=== PATIENT | male | born 1925 | race Caucasian/White ===

== ENCOUNTER 2016-08-04 22:06 | Emergency (ER) | payer OTHER ==
[2016-08-04 22:23] VITALS: BP 152/90; PULSE 73; TEMP 98; BMI 23.5
[2016-08-04] MEDS ORDERED: LIDOCAINE HCL 1%, 10 MG/ML (50 mL VIAL) INF ONE (22:51)
--- NOTE | 2016-08-04 22:52 | PDOC ---
History of Present Illness - General Chief Complaint: Injury Stated Complaint: FELL/INJURY Time Seen by Provider: 08/04/16 22:24 History Source: Patient, Family Exam Limitations: Dementia - History of Present Illness Initial Comments: 08/04/16 22:54 89yo Male patient presented to ED via EMS from [facility]. Patient states while ambulating in [place] with walker, he tripped fell backward injuring left elbow and right hand. Patient and family denies head injury, neck injury or LOC. Patient c/o large laceration to right hand. Denies CP, Abd pain, n/v/d, fever, back pain, neck pain, head injury, diff breathing, or any other complaints at this time. Occurred: reports: just prior to arrival Pain Location: reports: upper extremity Method of Injury: Yes: fall Modifying Factors: worse with: None, cold therapy, immobilization, pain medication, rest, other Loss of Consciousness: no loss of consciousness Past History - Travel Traveled outside of the country in the last 30 days: No Close contact w/someone who was outside of country & ill: No - Past Medical History Allergies/Adverse Reactions: Allergies Allergy/AdvReac Type Severity Reaction Status Date / Time No Known Allergies Allergy Verified 08/04/16 22:22 Home Medications: Ambulatory Orders Sennosides [Senna -] 2 tab PO DAILY 10/25/14 Guaifenesin AC [Robitussin AC] 10 ml PO Q8H PRN #0 ud 10/28/14 Brimonidine Tartrate [Alphagan 0.2% -] 1 drop OU TID 02/28/16 Latanoprost 0.005% Eye Drops [Xalatan 0.005% Eye Drops -] 1 drop OU HS 02/28/16 Lipase/Protease/Amylase [Мария Chou 12,000 Units Capsule] 1 each PO ASDIR Mag Hydrox/Al Hydrox/Simeth [Mylanta *Suspension*] 20 ml PO Q6H PRN 02/28/16 Ranitidine HCl [Zantac] 150 mg PO HS 02/28/16 Simethicone [Gas-X] 80 mg PO Q4H PRN 02/28/16 Aa/[place]/Arg/C/Zn/Cu [Lps Critical Care Liquid] 30 ml PO DAILY Bacitracin - [Bacitracin Topical Ointment -] 1 applic TP DAILY 03/17/16 Clotrimazole [Lotrimin 1% Solution -] 1 applic TP BID 03/17/16 Dapsone [Aczone] 1 cm TP HS 03/17/16 Dorzolamide HCl [Trusopt 2%] 1 drop OU BID 03/17/16 Sulfacetamide Sodium [Ovace Plus] 1 applic TP BID 03/17/16 Cardiac Disorders: Yes Dementia: Yes GI Disorders: Yes (GERD) HTN: Yes Hypercholesterolemia: Yes Suicide Attempt (Hx): No - Immunization History Immunization Up to Date: Yes - Psycho/Social/Smoking Cessation Hx Anxiety: No Suicidal Ideation: No Smoking Status: No Smoking History: Never smoked Have you smoked in the past 12 months: No Number of Cigarettes Smoked Daily: 0 Hx Alcohol Use: No Drug/Substance Use Hx: No Substance Use Type: None Hx Substance Use Treatment: No Trauma Specific PMHX - Complaint Specific PMHX Arthritis: Yes Back Injury: No Neck Injury: No Hx Sacro Iliac Joint Dysfunction: No Review of Systems - Review of Systems Able to Perform ROS?: Yes Is the patient limited Belarusian proficient: No Constitutional: No: Fever Respiratory: No: Shortness of Breath, Stridor, Wheezing, Productive cough Cardiac (ROS): No: Chest Pain, Palpitations, Syncope, Chest Tightness ABD/GI: No: Constipated, Diarrhea, Nausea, Vomiting : No: Burning, Dysuria, Frequency, Flank Pain, Hematuria, Pain, Urgency Musculoskeletal: No: Back Pain, Joint Pain (Left elbow) Integumentary: Yes: Other (Laceration to right hand.). No: Erythema, Pruritus, Rash Neurological: No: Headache, Numbness, Seizure, Tingling, Tremors, Weakness, Unsteady Gait, Ataxia, Dizziness All Other Systems: Reviewed and Negative *Physical Exam - Vital Signs Last Vital Signs Temp Pulse Resp BP Pulse Ox 98 F 73 18 152/90 96 08/04/16 22:22 08/04/16 22:22 08/04/16 22:22 08/04/16 22:22 08/04/16 22:22 - Physical Exam General Appearance: Yes: Nourished, Appropriately Dressed. No: Apparent Distress, Mild Distress, Moderate Distress, Severe Distress HEENT: positive: EOMI, KELL, Normal ENT Inspection, Normal Voice, Symmetrical, TMs Normal, Pharynx Normal. negative: Nasal Congestion, Rhinorrhea, Sinus Tenderness, TM Bulging, TM Dull, TM Erythema Neck: positive: Trachea midline, Supple. negative: Decreased range of motion, Stridor, Lymphadenopathy (R), Lymphadenopathy (L), Rigidity, Tender lateral, Tender midline Respiratory/Chest: positive: Lungs Clear, Decreased Breath Sounds. negative: Normal Breath Sounds, Respiratory Distress, Accessory Muscle Use, Labored Respiration, Rapid RR, Rhonchi, Stridor, Wheezing Cardiovascular: positive: Regular Rhythm, Regular Rate. negative: Edema, JVD, Murmur Gastrointestinal/Abdominal: positive: Normal Bowel Sounds, Soft. negative: Distended, Guarding, Rebound, Tenderness Musculoskeletal: positive: Normal Inspection. negative: CVA Tenderness, Decreased Range of Motion Extremity: positive: Normal Capillary Refill, Normal Inspection, Normal Range of Motion. negative: Pedal Edema, Swelling Integumentary: positive: Normal Color, Dry, Warm, Other (4cm laceration to dorsal aspect of right hand.). negative: Jaundice, Mottled, Hives, Rash, Swelling Neurologic: positive: row boss II-XII NML intact, Fully Oriented, Alert, Normal Mood/ Affect, Normal Response, Motor Strength 5/5. negative: Numbness, Confused, Depressed Affect Procedures - Laceration/Wound Repair Right Upper Dorsal Hand Wound Length: 2.6 to 5.0 cm Wound Explored: clean Wound's Depth, Shape: into muscle, linear, flap Irrigated w/ Saline: Yes Betadine Prep: No Anesthesia: 1% Lidocaine Amount of Anesthetic (ccs): 7 Wound Debrided: minimal Wound Repaired With: Sutures Suture Size/Type: 5:0, other (CHROMIC GUT.) Number of Sutures: 10 Layer Closure: No Progress: 08/05/16 01:00 PATIENT TOLERATED PROCEDURE WELL. STERILE DRESSING APPLIED. ED Treatment Course - RADIOLOGY Radiology Studies Ordered: Category Date Time Status HAND- RIGHT [RAD] Stat Radiology 08/04/16 22:51 Ordered *DC/Admit/Observation/Transfer Diagnosis at time of Disposition: Laceration Injury of hand Qualifiers: Encounter type: initial encounter Laterality: right Qualified Code(s): S69.91XA - Unspecified injury of right wrist, hand and finger(s), initial encounter Fall Qualifiers: Encounter type: initial encounter Qualified Code(s): W19.XXXA - Unspecified fall, initial encounter - Discharge Dispostion Disposition: NURSING HOME FACILITY Condition at time of disposition: Stable Admit: No - Patient Instructions Printed Discharge Instructions: DI for Suture Removal, DI for Laceration Repair , DI for Hand Injury Additional Instructions: FOLLOW UP WITH YOUR DOCTOR. NO NEED FOR SUTURE REMOVAL THEY DISSOLVE. MOTRIN OR TYLENOL FOR PAIN NEEDED. KEEP HAND COVERED UNTIL HEALED. RETURN IF SYMPTOMS WORSEN, OR ANY CONCERNS FOR FURTHER EVALUATION. Print Language: ETHIOPIAN
[2016-08-04] MEDS ORDERED: LIDOCAINE HCL/PF 1% SDV 5ML VIAL ONE (23:23)
[2016-08-05 00:05] LABS: URINE APPEARANCE CLEAR; URINE BILIRUBIN NEGATIVE (NEGATIVE); URINE COLOR STRAW; URINE GLUCOSE (UA) NEGATIVE (NEGATIVE); URINE KETONE NEGATIVE (NEGATIVE); URINE LEUK ESTERASE NEGATIVE (NEGATIVE); URINE NITRITE NEGATIVE (NEGATIVE); URINE PROTEIN NEGATIVE (NEGATIVE); URINE UROBILINOGEN NEGATIVE E.U./dl (0.2-1.0)
[2016-08-05 00:08] LABS: URINE BLOOD 1+ (NEGATIVE)
[2016-08-05 00:10] LABS: URINE HYALINE CAST 1 /lpf; URINE RBC 1 /hpf (0-3); URINE WBC <1 /hpf (3-5)
[2016-08-05] MEDS ORDERED: ACETAMINOPHEN 325 MG TABLET (FP) PO ONE (01:08)
== END 2016-08-05 01:54 ==
LOC: JER 22:06
PROC: 0KQC3ZZ Repair Right Hand Muscle, Percutaneous Approach (ICD-10-PCS; principal; 2016-08-04)
DX: S61.411A Laceration without foreign body of right hand, initial encounter (principal); W01.0XXA Fall on same level from slipping, tripping and stumbling without subsequent striking against object, initial encounter; Y93.01 Activity, walking, marching and hiking; Y92.128 Other place in nursing home as the place of occurrence of the external cause; I10 Essential (primary) hypertension; E78.00 Pure hypercholesterolemia, unspecified; K21.9 Gastro-esophageal reflux disease without esophagitis; F03.90 Unspecified dementia, unspecified severity, without behavioral disturbance, psychotic disturbance, mood disturbance, and anxiety
CPT/HCPCS: 13132; 73130-TC-RT; 81003; 81015; 87086; 87186; 99281-25

== ENCOUNTER 2017-06-30 10:53 | Inpatient (IN) | payer OTHER ==
--- NOTE | 2017-06-30 11:07 | PDOC ---
Attending Attestation - Resident Resident Name: Marty Mcmillan - ED Attending Attestation I have performed the following: I have examined & evaluated the patient, The case was reviewed & discussed with the resident, I agree w/resident's findings & plan, Exceptions are as noted - Medical Decision Making 06/30/17 11:07 I, Dr. Katerina Bustos, DO, attest that this document has been prepared under my direction and personally reviewed by me in its entirety. I further attest, that it accurately reflects all work, treatment, procedures and medical decision -making performed by me. 06/30/17 12:31 a/p: 89yo male with fever/cough and fall x 2 -concern for closed head injury and poss PNA -will obtain labs, cultures, lactate, tylenol for fever -will most likely need admission and abx <Katerina Bustos - Last Filed: 06/30/17 12:31> - HPI HPI: 06/30/17 13:39 The patient is an 89 year old male with a significant PMH of dementia, HTN, and glaucoma who presents to the emergency department from [facility] via EMS s /p fall. As per EMS, the patient fell at the skilled nursing but are unsure if he fell from the bed or standing position. The skilled nursing notes that the patient also fell yesterday and was stabilized, but was found on the ground today. The patient is unable to provide a history secondary to his dementia. Allergies: NKA - Physicial Exam PE: 06/30/17 14:41 GENERAL: (+) Hot to touch. Awake, alert, and fully oriented, in no acute distress HEAD: No signs of trauma EYES: PERRLA, EOMI, sclera anicteric, conjunctiva clear ENT: Auricles normal inspection, hearing grossly normal, nares patent, oropharynx clear without exudates. Moist mucosa NECK: Normal ROM, supple, no lymphadenopathy, JVD, or masses LUNGS: (+) Coarse breath sounds bilaterally. No wheezes, and no crackles HEART: (+) Tachycardic. Regular rate and rhythm, normal S1 and S2, no murmurs, rubs or gallops ABDOMEN: Soft, nontender, normoactive bowel sounds. No guarding, no rebound. No masses EXTREMITIES: Normal range of motion, no edema. No clubbing or cyanosis. No cords, erythema, or tenderness NEUROLOGICAL: Cranial nerves II through XII grossly intact. Normal speech. SKIN: Warm, Dry, normal turgor, no rashes or lesions noted. - Medical Decision Making 06/30/17 15:[address] Vang for admission regarding this patient. <Tushar Musa - Last Filed: 06/30/17 15:53> Heart Score/ECG Review - ECG Intrepretation Comment:: 06/30/17 12:31 sinus tach at 106, L johns axis, nl interval, no acute st/t wave findings <Katerina Bustos - Last Filed: 06/30/17 12:31>
[2017-06-30] MEDS ORDERED: SODIUM CHLORIDE 0.9% 1000 ML INFUS.BAG IV ONE (11:22)
[2017-06-30] MEDS ORDERED: BACITRACIN 0.9 GM PACKET ONE (11:23)
--- NOTE | 2017-06-30 11:46 | PDOC ---
History of Present Illness - General Chief Complaint: Injury Stated Complaint: FALL Time Seen by Provider: 06/30/17 10:57 History Source: EMS, Family, [facility] Records Exam Limitations: Dementia - History of Present Illness Initial Comments: 06/30/17 11:40 The patient is an 89M with a PMH of demetia, glaucoma, and HTN who presents via EMS for falling from standing height/bed from [facility] (unsure at longterm). The patient cannot provide any history. Per the [place], he fell once yesterday and was stable, then was found on the ground today. They are unsure if he was walking or if he fell off the bed. He denies any complaints but I cannot perform a ROS 2/2 dementia. Past History - Past Medical History Allergies/Adverse Reactions: Allergies Allergy/AdvReac Type Severity Reaction Status Date / Time No Known Allergies Allergy Verified 06/30/17 11:44 Home Medications: Ambulatory Orders Aa/Hydrolyzed Collagen, Whey [Lps 15-30 Liquid] 30 ml PO DAILY 06/30/17 Acetaminophen [Tylenol] 650 mg PO QID 06/30/17 Bimatoprost [Lumigan] 1 drop OU DAILY 06/30/17 Brimonidine Tartrate [Alphagan 0.2% -] 1 drop TID 06/30/17 Cholecalciferol (Vitamin D3) [Vitamin D3] 1,000 unit PO DAILY 06/30/17 Dorzolamide HCl [Trusopt 2%] 1 drop TID 06/30/17 Guaifenesin [Expectorant] 200 mg PO BID 06/30/17 Lipase/Protease/Amylase [Мария Chou 12,000 Units Capsule] 2 tab PO TID 06/30/17 Mag Hydrox/Al Hydrox/Simeth [Mylanta *Suspension*] 30 ml PO Q6H 06/30/17 Metronidazole 1% Cream [Metrocream 1% Cream -] 1 applic TP BID 06/30/17 Mirtazapine [Remeron -] 15 mg PO DAILY 06/30/17 Ranitidine HCl [Zantac 75] 75 mg PO BID 06/30/17 Sennosides [Senna] 2 tab PO DAILY 06/30/17 Simethicone [Gas Relief 80] 80 mg PO QID 06/30/17 Timolol 0.5% [Timoptic 0.5%] 1 drop OU DAILY 06/30/17 Vit A/Vit C/Vit E/Zinc/Copper [Preservision Tablet] 1 each PO BID 06/30/17 Cardiac Disorders: Yes Dementia: Yes GI Disorders: Yes (GERD) HTN: Yes Hypercholesterolemia: Yes - Immunization History Immunization Up to Date: Yes - Suicide/Smoking/Psychosocial Hx Smoking Status: No Smoking History: Never smoked Have you smoked in the past 12 months: No Number of Cigarettes Smoked Daily: 0 Hx Alcohol Use: No Drug/Substance Use Hx: No Substance Use Type: None Hx Substance Use Treatment: No Review of Systems - Review of Systems Able to Perform ROS?: No (demented) Is the patient limited Montenegrin proficient: No *Physical Exam - Physical Exam Comments: 06/30/17 11:47 GENERAL: Well developed, well nourished. Awake and alert. No acute distress. HEENT: Normocephalic, atraumatic. Hearing grossly normal. PERRLA, EOMI. NECK: Supple. Full ROM. No JVD. Carotid pulses 2+ and symmetric, without bruits. No thyromegaly. No lymphadenopathy. CARDIOVASCULAR: Regular rate and rhythm. No murmurs, rubs, or gallops. Distal pulses are 2+ and symmetric. PULMONARY: Decreased lung sounds in R LL. No evidence of respiratory distress. No wheezing, rales or rhonchi. ABDOMINAL: Soft. Non-tender. Non-distended. No rebound or guarding. No organomegaly. Normoactive bowel sounds. MUSCULOSKELETAL: Normal range of motion at all joints. No bony deformities or tenderness. EXTREMITIES: No cyanosis. No clubbing. No edema. No calf tenderness. SKIN: Warm and dry. Normal capillary refill. No rashes. No jaundice. NEUROLOGICAL: Alert, awake, appropriate. Cranial nerves 2-12 intact. PSYCHIATRIC: Cooperative. Good eye contact. Demented. Heart Score/ECG Review #1 General ECG Interpretation: Sinus Rhythm, Normal Rate, Normal Intervals, No acute ischemic changes Compared to previous ECG there are: No significant change 06/30/17 11:52 Sinus tach Rate 106 QRS 80 QTc 438 ED Treatment Course - LABORATORY CBC & Chemistry Diagram: 06/30/17 11:35 06/30/17 11:35 - RADIOLOGY Radiology Studies Ordered: Category Date Time Status CERVICAL SPINE CT W/O CONTR [CT] Stat CT Scan 06/30/17 11:[address] WITHOUT CONTRAST [CT] Stat CT Scan 06/30/17 11:34 Ordered CHEST X-RAY PORTABLE* [RAD] Stat Radiology 06/30/17 11:22 Ordered ELBOW-LEFT [RAD] Stat Radiology 06/30/17 11:34 Ordered SHOULDER-LEFT [RAD] Stat Radiology 06/30/17 11:34 Ordered WRIST W/HAND-LEFT* [RAD] Stat Radiology 06/30/17 11:34 Ordered Medical Decision Making - Medical Decision Making 06/30/17 11:55 The patient is an 89M with a PMH of dementia, HTN, and glaucoma who presented to the ED after sustaining 2 falls in 2 days. He denies any complaints. He has 2 superficial skin tears, both cleaned and bandaged. Incoming vitals significant for 101.3F. Sepsis protocol is being followed. In addition, I will image his head and L arm for bleed/fracture, respectively. Will monitor closely. 06/30/17 14:55 Head and c-spine CT negative. 06/30/17 14:56 L arm negative. CXR read as negative. Will order Chest CT as there is high likelihood there is a PNA. 06/30/17 15:35 Will order prophylactic abx because of a fever with no source. 06/30/17 15:[address] I have spoken with Dr. Vang who accepts admission for Dr. Neff to a med- surg bed. *DC/Admit/Observation/Transfer Diagnosis at time of Disposition: Accidental fall Qualifiers: Encounter type: initial encounter Qualified Code(s): W19.XXXA - Unspecified fall, initial encounter - Discharge Dispostion Condition at time of disposition: Stable Admit: Yes - Referrals - Patient Instructions - Post Discharge Activity
[2017-06-30 11:51] LABS: BASO % 0.2 % (0-2.0); HEMATOCRIT 45.3 % (35.4-49); HEMOGLOBIN 14.8 GM/dL (11.7-16.9); LYMPH % 7.6 % (8-40); MCH 28.2 pg (25.7-33.7); MCHC 32.8 g/dl (32.0-35.9); MEAN PLT VOLUME 7.6 fl (7.5-11.1); MONO % 14.6 % (3.8-10.2); NEUT % 77.6 % (42.8-82.8); PLATELET COUNT 191 K/MM3 (134-434); RBC 5.27 M/mm3 (4.00-5.60); WHITE BLOOD COUNT 10.4 K/mm3 (4.0-10.0)
[2017-06-30] MEDS ORDERED: ACETAMINOPHEN 1000 MG/100 ML VIAL (NON FORMULARY) IVPB ONE (11:53)
[2017-06-30] MEDS ORDERED: ACETAMINOPHEN INJECTION 100 ML IVPB ONE (11:56)
[2017-06-30 12:00] LABS: URINE APPEARANCE CLEAR; URINE BILIRUBIN NEGATIVE (NEGATIVE); URINE BLOOD NEGATIVE (NEGATIVE); URINE COLOR YELLOW; URINE GLUCOSE (UA) NEGATIVE (NEGATIVE); URINE KETONE TRACE (NEGATIVE); URINE LEUK ESTERASE NEGATIVE (NEGATIVE); URINE NITRITE NEGATIVE (NEGATIVE); URINE UROBILINOGEN NEGATIVE mg/dL (0.2-1.0)
[2017-06-30 12:09] LABS: URINE PROTEIN 1+ (NEGATIVE)
[2017-06-30 12:10] LABS: URINE BACTERIA RARE /hpf (NONE SEEN); URINE MUCUS RARE
[2017-06-30 12:16] LABS: ALBUMIN 3.2 g/dl (3.4-5.0); ALK PHOS 74 U/L (45-117); ANION GAP 12 (8-16); BILIRUBIN,TOTAL 0.5 mg/dL (0.2-1.0); BLOOD UREA NITROGEN 11 mg/dL (7-18); CALCIUM 7.9 mg/dL (8.5-10.1); CHLORIDE 91 mmol/L (98-107); CO2 24 mmol/L (21-32); CREATININE 0.8 mg/dL (0.7-1.3); GLUCOSE,RANDOM 101 mg/dL (74-106); POTASSIUM 4.5 mmol/L (3.5-5.1); SGOT/AST 19 U/L (15-37); SGPT/ALT 18 U/L (12-78); SODIUM 127 mmol/L (136-145); TOT PROT 6.3 g/dl (6.4-8.2)
[2017-06-30 14:23] LABS: INR 1.09 (0.82-1.09); PROTHROMBIN TIME (PATIENT) 12.3 SEC (9.98-11.88)
[2017-06-30 14:26] LABS: ACTIVATED PTT 30.1 SECONDS (26.9-34.4)
[2017-06-30] MEDS ORDERED: VANCOMYCIN 1,000 MG in DEXTROSE 5%-WATER - 250 ML IVPB ONE (15:34)
[2017-06-30] MEDS ORDERED: PIPERACILLIN/TAZOB 3.375 GM/50 ML PRE-DOCKED IV ONE (15:34)
[2017-06-30] MEDS ORDERED: VANCOMYCIN 500 MG VIAL (RESTRICTED TO ID ONLY) ONE (16:51)
[2017-06-30] MEDS ORDERED: PIPERACILLIN/TAZOB 3.375 GM 3.375 GM/50 ML BAG IVPB ONE (16:51)
[2017-06-30] MEDS ORDERED: PATIENT'S OWN MEDICATION (NON-FORMULARY) (Aa/Hydrolyzed Collagen, Whey [Lps 15-30 Liquid] PO SCH (18:30)
[2017-06-30 18:32] VITALS: BMI 21.2
[2017-06-30] MEDS: PIPERACILLIN/TAZOB 3.375 GM 3.375 GM in DEXTROSE 5%-WATER - 50 ML IVPB SCH (18:46)
[2017-06-30] MEDS ORDERED: PIPERACILLIN/TAZOB 3.375 GM 3.375 GM in DEXTROSE 5%-WATER - 100 ML IVPB SCH (19:00)
[2017-06-30] MEDS: MIRTAZAPINE 15 MG TABLET (FP) PO SCH (20:13)
[2017-06-30] MEDS: CHOLECALCIFEROL (VITAMIN D3) 1,000 UNIT TABLET (FP) PO SCH (20:13)
[2017-06-30] MEDS: SENNOSIDES 8.6MG TABLET (FP) PO SCH (20:14)
[2017-06-30] MEDS: TIMOLOL 0.5% OPHTHALMIC SOL 5 ML BOTTLE OU SCH (20:21)
[2017-06-30] MEDS: LATANOPROST 0.005% OPHTH SOLN 2.5ML BOTTLE OU SCH (20:30)
[2017-06-30] MEDS: RANITIDINE HCL 150 MG TABLET (FP) PO SCH (21:33)
[2017-06-30] MEDS: DORZOLAMIDE 2% HCL OPHTHALMIC SOLUTION 10 ML BOTTLE OU SCH (21:34)
[2017-06-30] MEDS: BRIMONIDINE TARTRATE 0.2% OPHTHALMIC 5 ML BOTTLE OU SCH (21:39)
[2017-06-30] MEDS: ACETAMINOPHEN 325 MG TABLET (FP) PO SCH (21:40)
[2017-06-30] MEDS: SIMETHICONE 80 MG TAB.CHEW (FP) PO SCH (21:41)
[2017-06-30] MEDS ORDERED: metroNIDAZOLE 1% TOPICAL CREAM 60 GM/TUBE TP SCH ×2 (22:00)
[2017-06-30] MEDS ORDERED: PT OWN MED DRAWER 7, Y5N ONE (23:58)
[2017-07-01] MEDS ORDERED: PT OWN MED DRAWER 7, Y5N ONE ×2 (00:03→21:30)
[2017-07-01] MEDS ORDERED: PIPERACILLIN/TAZOB 3.375 GM 3.375 GM in DEXTROSE 5%-WATER - 100 ML IVPB SCH (02:00)
[2017-07-01] MEDS: BRIMONIDINE TARTRATE 0.2% OPHTHALMIC 5 ML BOTTLE OU SCH ×3 (06:27→21:40)
[2017-07-01] MEDS: DORZOLAMIDE 2% HCL OPHTHALMIC SOLUTION 10 ML BOTTLE OU SCH ×3 (06:27→21:39)
[2017-07-01] MEDS: LIPASE/PROTEASE/AMYLASE 6,000 UNIT CAPSULE PO SCH ×3 (10:26→17:27)
[2017-07-01] MEDS: SIMETHICONE 80 MG TAB.CHEW (FP) PO SCH ×4 (10:26→21:38)
[2017-07-01] MEDS: TIMOLOL 0.5% OPHTHALMIC SOL 5 ML BOTTLE OU SCH (10:27)
[2017-07-01] MEDS: SENNOSIDES 8.6MG TABLET (FP) PO SCH (10:27)
[2017-07-01] MEDS: MIRTAZAPINE 15 MG TABLET (FP) PO SCH (10:27)
[2017-07-01] MEDS: RANITIDINE HCL 150 MG TABLET (FP) PO SCH ×2 (10:28→21:34)
[2017-07-01] MEDS: ACETAMINOPHEN 325 MG TABLET (FP) PO SCH ×4 (10:28→21:37)
[2017-07-01] MEDS: CHOLECALCIFEROL (VITAMIN D3) 1,000 UNIT TABLET (FP) PO SCH (10:28)
[2017-07-01] MEDS: LATANOPROST 0.005% OPHTH SOLN 2.5ML BOTTLE OU SCH (10:29)
--- NOTE | 2017-07-01 14:08 | PN ---
Progress Note (short form) - Note Progress Note: Continues to have cough and chest congestion No fever O/E Heart regular Lungs VB, b/l rales and rhonchi+ Abd soft ' Ext no edema Laboratory Results - last 24 hr 06/30/17 06/30/17 11:35 11:35 PT with INR 12.30 H INR 1.09 PTT (Actin FS) 30.1 Ur Leukocyte Esterase Negative Current Medications Acetaminophen (Tylenol -) 650 mg PO QID [facility] Last Admin: 07/01/17 10:28 Dose: 650 mg Brimonidine Tartrate (Alphagan 0.2% -) 1 drop OU TID MELISSA Last Admin: 07/01/17 06:27 Dose: 1 drop Cholecalciferol (Vitamin D3 -) 1,000 unit PO DAILY [facility] Last Admin: 07/01/17 10:28 Dose: 1,000 unit Dorzolamide HCl (Trusopt 2%) 1 drop OU TID [facility] Last Admin: 07/01/17 06:27 Dose: 1 drop Piperacillin Sod/Tazobactam (Sod 3.375 gm/ Dextrose) 50 mls @ 100 mls/hr IVPB Q8H-IV MELISSA PRN Reason: Protocol Last Admin: 06/30/17 18:46 Dose: Not Given Latanoprost (Xalatan 0.005% Eye Drops -) 1 drop OU DAILY [facility] Last Admin: 07/01/17 10:29 Dose: 1 drop Metronidazole (Metrocream 1% Cream -) 60 gm TP BID [facility] Mirtazapine (Remeron -) 15 mg PO DAILY [facility] Last Admin: 07/01/17 10:27 Dose: 15 mg Non-Formulary Medication (Guaifenesin [Expectorant]) 200 mg PO BID [facility] Non-Formulary Medication (Vit A/Vit C/Vit E/Zinc/Copper [Preservision Areds Tablet]) 1 each PO BID [facility] Pancrelipase (Creon Dr 6,000 Units Capsule) 4 cap PO TIDCM [facility] Last Admin: 07/01/17 10:26 Dose: 4 cap Ranitidine HCl (Zantac -) 75 mg PO BID [facility] Last Admin: 07/01/17 10:28 Dose: 75 mg Senna (Senna -) 2 tab PO DAILY [facility] Last Admin: 07/01/17 10:27 Dose: 2 tab Simethicone (Mylicon -) 80 mg PO QID [facility] Last Admin: 07/01/17 10:26 Dose: 80 mg Timolol Maleate (Timoptic 0.5%) 1 drop OU DAILY [facility] Last Admin: 07/01/17 10:27 Dose: 1 drop Vital Signs Period Temp Pulse Resp BP Sys/Weber Pulse Ox Last 24 Hr 98.4 F-99 F 83-96 18-20 119-145/60-74 94-96 A&P 1.Pneumonia Cont present ABX for NH acquired, add yoli PT 2.HTN controlled 3.Dementia stable
[2017-07-01] MEDS: PIPERACILLIN/TAZOB 3.375 GM 3.375 GM in DEXTROSE 5%-WATER - 100 ML IVPB SCH (18:41)
[2017-07-01] MEDS: guaiFENesin 200 MG/10 ML 10 ML UNIT-DOSE CUPS PO SCH (21:46)
[2017-07-02] MEDS: PIPERACILLIN/TAZOB 3.375 GM 3.375 GM in DEXTROSE 5%-WATER - 100 ML IVPB SCH (01:26)
[2017-07-02] MEDS ORDERED: PT OWN MED DRAWER 7, Y5N ONE ×2 (05:58→07:01)
[2017-07-02] MEDS: DORZOLAMIDE 2% HCL OPHTHALMIC SOLUTION 10 ML BOTTLE OU SCH ×3 (06:03→22:19)
[2017-07-02] MEDS: BRIMONIDINE TARTRATE 0.2% OPHTHALMIC 5 ML BOTTLE OU SCH ×3 (06:04→22:17)
[2017-07-02] MEDS: LIPASE/PROTEASE/AMYLASE 6,000 UNIT CAPSULE PO SCH ×3 (08:38→17:19)
[2017-07-02] MEDS: ACETAMINOPHEN 325 MG TABLET (FP) PO SCH ×4 (10:35→22:16)
[2017-07-02] MEDS: CHOLECALCIFEROL (VITAMIN D3) 1,000 UNIT TABLET (FP) PO SCH (10:36)
[2017-07-02] MEDS: SIMETHICONE 80 MG TAB.CHEW (FP) PO SCH ×4 (10:36→22:16)
[2017-07-02] MEDS: MIRTAZAPINE 15 MG TABLET (FP) PO SCH (10:36)
[2017-07-02] MEDS: RANITIDINE HCL 150 MG TABLET (FP) PO SCH ×2 (10:36→22:19)
[2017-07-02] MEDS: guaiFENesin 200 MG/10 ML 10 ML UNIT-DOSE CUPS PO SCH ×2 (10:39→22:16)
[2017-07-02] MEDS: TIMOLOL 0.5% OPHTHALMIC SOL 5 ML BOTTLE OU SCH (10:47)
[2017-07-02] MEDS: LATANOPROST 0.005% OPHTH SOLN 2.5ML BOTTLE OU SCH (10:47)
[2017-07-02] MEDS ORDERED: PIPERACILLIN/TAZOB 3.375 GM 3.375 GM in DEXTROSE 5%-WATER - 100 ML IVPB ONE (11:30)
[2017-07-02] MEDS: SENNOSIDES 8.6MG TABLET (FP) PO SCH (12:28)
--- NOTE | 2017-07-02 15:26 | EKG ---
Test Reason : Blood Pressure : / mmHG Vent. Rate : 106 BPM Atrial Rate : 106 BPM P-R Int : 172 ms QRS Dur : 080 ms QT Int : 330 ms P-R-T Axes : 074 -70 066 degrees QTc Int : 438 ms SINUS TACHYCARDIA WITH PREMATURE ATRIAL COMPLEXES LEFT AXIS DEVIATION ABNORMAL ECG WHEN COMPARED WITH ECG OF 09-APR-2016 00:48, COMPARED TO EKG NO SIGNIFICANT CHANGE IS FOUND Confirmed by DONAL ALEXANDER MD ([id number]) on 07/02/2017 3:25:50 PM Referred By: Confirmed By:DONAL ALEXANDER MD
--- NOTE | 2017-07-02 17:17 | PN ---
Progress Note (short form) - Note Progress Note: Continues to feel better No fever Stll has cough and chest congestion O/E Herat regular Lungs VB, b/l scattered rales+ Abd soft Ext no edema Vital Signs Period Temp Pulse Resp BP Sys/Weber Pulse Ox Last 24 Hr 97.7 F-101.6 F 88-115 18-20 112-147/48-82 95-97 Current Medications Acetaminophen (Tylenol -) 650 mg PO QID [facility] Last Admin: 07/02/17 13:57 Dose: 650 mg Brimonidine Tartrate (Alphagan 0.2% -) 1 drop OU TID [facility] Last Admin: 07/02/17 13:58 Dose: 1 drop Cholecalciferol (Vitamin D3 -) 1,000 unit PO DAILY [facility] Last Admin: 07/02/17 10:36 Dose: 1,000 unit Dorzolamide HCl (Trusopt 2%) 1 drop OU TID [facility] Last Admin: 07/02/17 13:58 Dose: 1 drop Guaifenesin (Robitussin -) 10 ml PO BID [facility] Last Admin: 07/02/17 10:39 Dose: 10 ml Piperacillin Sod/Tazobactam (Sod 3.375 gm/ Dextrose) 50 mls @ 100 mls/hr IVPB Q8H-IV [facility]ELISSA PRN Reason: Protocol Last Admin: 06/30/17 18:46 Dose: Not Given Latanoprost (Xalatan 0.005% Eye Drops -) 1 drop OU DAILY [facility] Last Admin: 07/02/17 10:47 Dose: 1 drop Metronidazole (Metrocream 1% Cream -) 60 gm TP BID [facility] Mirtazapine (Remeron -) 15 mg PO DAILY [facility] Last Admin: 07/02/17 10:36 Dose: 15 mg Non-Formulary Medication (Vit A/Vit C/Vit E/Zinc/Copper [Preservision Areds Tablet]) 1 each PO BID [facility] Pancrelipase (Creon Dr 6,000 Units Capsule) 4 cap PO TIDCM [facility] Last Admin: 07/02/17 12:15 Dose: 4 cap Ranitidine HCl (Zantac -) 75 mg PO BID [facility] Last Admin: 07/02/17 10:36 Dose: 75 mg Senna (Senna -) 2 tab PO DAILY [facility] Last Admin: 07/02/17 12:28 Dose: 2 tab Simethicone (Mylicon -) 80 mg PO QID [facility] Last Admin: 07/02/17 13:58 Dose: Not Given Timolol Maleate (Timoptic 0.5%) 1 drop OU DAILY [facility] Last Admin: 07/02/17 10:47 Dose: 1 drop A&P 1.Pneumonia Cont present ABX for NH acquired, The patient is doing a lot better and more awake today Blood cultures are negative and will change Abx to levaquin from tomorrow. 2.HTN controlled 3.Dementia stable
[2017-07-03] MEDS ORDERED: PT OWN MED DRAWER 7, Y5N ONE ×3 (02:09→21:39)
[2017-07-03] MEDS: BRIMONIDINE TARTRATE 0.2% OPHTHALMIC 5 ML BOTTLE OU SCH ×2 (06:20→22:14)
[2017-07-03] MEDS: DORZOLAMIDE 2% HCL OPHTHALMIC SOLUTION 10 ML BOTTLE OU SCH ×3 (06:20→22:13)
[2017-07-03] MEDS: LIPASE/PROTEASE/AMYLASE 6,000 UNIT CAPSULE PO SCH ×3 (10:28→17:32)
[2017-07-03] MEDS: ACETAMINOPHEN 325 MG TABLET (FP) PO SCH ×3 (10:29→22:10)
[2017-07-03] MEDS: RANITIDINE HCL 150 MG TABLET (FP) PO SCH ×2 (10:29→22:13)
[2017-07-03] MEDS: MIRTAZAPINE 15 MG TABLET (FP) PO SCH (10:30)
[2017-07-03] MEDS: SENNOSIDES 8.6MG TABLET (FP) PO SCH (10:30)
[2017-07-03] MEDS: SIMETHICONE 80 MG TAB.CHEW (FP) PO SCH ×3 (10:30→22:12)
[2017-07-03] MEDS: TIMOLOL 0.5% OPHTHALMIC SOL 5 ML BOTTLE OU SCH (10:31)
[2017-07-03] MEDS: CHOLECALCIFEROL (VITAMIN D3) 1,000 UNIT TABLET (FP) PO SCH (10:31)
[2017-07-03] MEDS: LATANOPROST 0.005% OPHTH SOLN 2.5ML BOTTLE OU SCH (10:32)
[2017-07-03] MEDS: guaiFENesin 200 MG/10 ML 10 ML UNIT-DOSE CUPS PO SCH ×2 (11:05→22:12)
[2017-07-03] MEDS ORDERED: PIPERACIL/TAZOB 3.375 GM 3.375 GM/50 ML PREMIX IVPB ONE (11:39)
[2017-07-03 12:17] LABS: BASO % 0.2 % (0-2.0); HEMATOCRIT 39.3 % (35.4-49); HEMOGLOBIN 12.8 GM/dL (11.7-16.9); LYMPH % 7.1 % (8-40); MCH 27.9 pg (25.7-33.7); MCHC 32.5 g/dl (32.0-35.9); MEAN CELL VOLUME 85.6 fl (80-96); MEAN PLT VOLUME 7.6 fl (7.5-11.1); NEUT % 81.7 % (42.8-82.8); PLATELET COUNT 165 K/MM3 (134-434); RBC 4.59 M/mm3 (4.00-5.60); RDW 14.2 % (11.9-15.9); WHITE BLOOD COUNT 4.3 K/mm3 (4.0-10.0)
[2017-07-03 12:42] LABS: ANION GAP 12 (8-16); BLOOD UREA NITROGEN 11 mg/dL (7-18); CALCIUM 7.7 mg/dL (8.5-10.1); CHLORIDE 99 mmol/L (98-107); CO2 22 mmol/L (21-32); CREATININE 0.6 mg/dL (0.7-1.3); GLUCOSE,RANDOM 106 mg/dL (74-106); MAGNESIUM 2.1 mg/dL (1.8-2.4); PHOSPHOROUS 2.2 mg/dL (2.5-4.9); POTASSIUM 3.5 mmol/L (3.5-5.1); SODIUM 133 mmol/L (136-145)
--- NOTE | 2017-07-03 13:15 | PN ---
Progress Note, Physician Chief Complaint: Mr Alba says he is feeling well. Denies cp, sob, n/v. He has a cough but says it is minor and he is able to sleep. - Current Medication List Current Medications: Active Medications Acetaminophen (Tylenol -) 650 mg PO QID [facility] Last Admin: 07/03/17 10:29 Dose: 650 mg Brimonidine Tartrate (Alphagan 0.2% -) 1 drop OU TID [facility] Last Admin: 07/03/17 06:20 Dose: 1 drop Cholecalciferol (Vitamin D3 -) 1,000 unit PO DAILY [facility] Last Admin: 07/03/17 10:31 Dose: 1,000 unit Dorzolamide HCl (Trusopt 2%) 1 drop OU TID [facility] Last Admin: 07/03/17 06:20 Dose: 1 drop Guaifenesin (Robitussin -) 10 ml PO BID [facility] Last Admin: 07/03/17 11:05 Dose: 10 ml Piperacillin Sod/Tazobactam (Sod 3.375 gm/ Dextrose) 50 mls @ 100 mls/hr IVPB Q8H-IV [facility] PRN Reason: Protocol Last Admin: 06/30/17 18:46 Dose: Not Given Latanoprost (Xalatan 0.005% Eye Drops -) 1 drop OU DAILY [facility] Last Admin: 07/03/17 10:32 Dose: 1 drop Metronidazole (Metrocream 1% Cream -) 60 gm TP BID [facility] Mirtazapine (Remeron -) 15 mg PO DAILY [facility] Last Admin: 07/03/17 10:30 Dose: 15 mg Non-Formulary Medication (Vit A/Vit C/Vit E/Zinc/Copper [Preservision Areds Tablet]) 1 each PO BID [facility] Pancrelipase (Creon Dr 6,000 Units Capsule) 4 cap PO TIDCM [facility] Last Admin: 07/03/17 10:28 Dose: 4 cap Piperacillin/Tazobactam/Dextrose (Zosyn 3.375gm Ivpb (Premix)) 3.375 gm IVPB ONCE ONE Stop: 07/03/17 11:40 Ranitidine HCl (Zantac -) 75 mg PO BID [facility] Last Admin: 07/03/17 10:29 Dose: 75 mg Senna (Senna -) 2 tab PO DAILY [facility] Last Admin: 07/03/17 10:30 Dose: 2 tab Simethicone (Mylicon -) 80 mg PO QID [facility] Last Admin: 07/03/17 10:30 Dose: 80 mg Timolol Maleate (Timoptic 0.5%) 1 drop OU DAILY [facility] Last Admin: 07/03/17 10:31 Dose: 1 drop - Objective Vital Signs: Vital Signs Temperature 36.8 C 07/03/17 06:00 Pulse Rate 95 H 07/03/17 06:00 Respiratory Rate 20 07/02/17 22:43 Blood Pressure 137/76 07/03/17 06:00 O2 Sat by Pulse Oximetry (%) 96 07/02/17 21:00 Constitutional: Yes: Well Nourished, No Distress, Calm Cardiovascular: Yes: Regular Rate and Rhythm. No: Gallop, Murmur, Rub Respiratory: Yes: Regular, Cough (wet sounding), On Nasal O2, Rhonchi. No: CTA Bilaterally, Rales, Wheezes Gastrointestinal: Yes: Normal Bowel Sounds, Soft. No: Distention, Tenderness Extremities: Yes: WNL Edema: No Labs: CBC, BMP 07/03/17 12:00 07/03/17 12:00 INR, PTT INR 1.09 (0.82-1.09) 06/30/17 11:35 Problem List - Problems (1) Pneumonia Assessment/Plan: -patient found to have multifocal pneumonia on CT scan -patient received zosyn over hospitalization but appears not consistently -will order dose of zosyn now -ID consulted to evaluate for HCAP and further need of broad spectrum antibiotics -afebrile and normal WBC Code(s): J18.9 - PNEUMONIA, UNSPECIFIED ORGANISM (2) Accidental fall Assessment/Plan: -PT consulted and note reviewed -continue PT while here, discharge back to [facility] when on oral antibiotics Code(s): W19.XXXA - UNSPECIFIED FALL, INITIAL ENCOUNTER Qualifiers: Encounter type: initial encounter Qualified Code(s): W19.XXXA - Unspecified fall, initial encounter (3) Dementia Assessment/Plan: -stable Code(s): F03.90 - UNSPECIFIED DEMENTIA WITHOUT BEHAVIORAL DISTURBANCE (4) Glaucoma Assessment/Plan: -continue eye drops Code(s): H40.9 - UNSPECIFIED GLAUCOMA (5) Hypertension Assessment/Plan: -not on antihypertensives -SBP in the 150s, but at his age and with fall risk does not need aggressive blood pressure therapy -continue to monitor Code(s): I10 - ESSENTIAL (PRIMARY) HYPERTENSION Qualifiers: Hypertension type: essential hypertension Qualified Code(s): I10 - Essential (primary) hypertension (6) Hypophosphatemia Assessment/Plan: -replace -recheck in am Code(s): E83.39 - OTHER DISORDERS OF PHOSPHORUS METABOLISM
[2017-07-03] MEDS ORDERED: PIPERACILLIN/TAZOB 3.375 GM 3.375 GM in DEXTROSE 5%-WATER - 100 ML IVPB ONE (14:00)
--- NOTE | 2017-07-03 14:42 | CON.ID ---
Consult Consult Specialty:: infectious diseases Referred by:: Reason for Consultation:: pneumonia - History of Present Illness Chief Complaint: fall History of Present Illness: 89M with a PMH of demetia, glaucoma, and HTN who presents via EMS for falling from standing height/bed from [facility] . The patient cannot provide any history. Per the [place], he fell and then was found on the ground . They are unsure if he was walking or if he fell off the bed. patients daughter mentions that she has not seen him sick patient after admission was found to have pneumonia and was given few doses of abx according to the daughter patient was developing cough in the senior living he also had fever patient has severe dementia - History Source History Provided By: Family Member Limitations to Obtaining History: Dementia - Past Medical History PEN MAKER: Yes: Alzheimer's Cardio/Vascular: Yes: HTN, Hyperlipdemia Pulmonary: Yes: Other (non descript bronchitic condition.) Infectious Disease: Yes: Other (URI) Rheumatology: Yes: Other (gait dysf) - Past Surgical History Past Surgical History: Yes: None - Alcohol/Substance Use Hx Alcohol Use: No History of Substance Use: reports: None - Smoking History Smoking history: Never smoked Have you smoked in the past 12 months: No Aproximately how many cigarettes per day: 0 - Social History 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 History of Recent Travel: No Home Medications - Allergies Allergies/Adverse Reactions: Allergies Allergy/AdvReac Type Severity Reaction Status Date / Time No Known Allergies Allergy Verified 06/30/17 11:44 - Home Medications Home Medications: Ambulatory Orders Aa/Hydrolyzed Collagen, Whey [Lps 15-30 Liquid] 30 ml PO DAILY 06/30/17 Acetaminophen [Tylenol] 650 mg PO QID 06/30/17 Bimatoprost [Lumigan] 1 drop OU DAILY 06/30/17 Brimonidine Tartrate [Alphagan 0.2% -] 1 drop TID 06/30/17 Cholecalciferol (Vitamin D3) [Vitamin D3] 1,000 unit PO DAILY 06/30/17 Dorzolamide HCl [Trusopt 2%] 1 drop TID 06/30/17 Guaifenesin [Expectorant] 200 mg PO BID 06/30/17 Lipase/Protease/Amylase [Мария Chou 12,000 Units Capsule] 2 tab PO TID 06/30/17 Mag Hydrox/Al Hydrox/Simeth [Mylanta *Suspension*] 30 ml PO Q6H 06/30/17 Metronidazole 1% Cream [Metrocream 1% Cream -] 1 applic TP BID 06/30/17 Mirtazapine [Remeron -] 15 mg PO DAILY 06/30/17 Ranitidine HCl [Zantac 75] 75 mg PO BID 06/30/17 Sennosides [Senna] 2 tab PO DAILY 06/30/17 Simethicone [Gas Relief 80] 80 mg PO QID 06/30/17 Timolol 0.5% [Timoptic 0.5%] 1 drop OU DAILY 06/30/17 Vit A/Vit C/Vit E/Zinc/Copper [Preservision Tablet] 1 each PO BID 06/30/17 Review of Systems Unable to obtain ROS, reason: unable to obtain Physical Exam Vital Signs: Vital Signs Temperature 98.2 F 07/03/17 06:00 Pulse Rate 95 H 07/03/17 06:00 Respiratory Rate 20 07/02/17 22:43 Blood Pressure 137/76 07/03/17 06:00 O2 Sat by Pulse Oximetry (%) 96 07/02/17 21:00 Constitutional: Yes: Calm Eyes: Yes: Conjunctiva Clear Neck: Yes: Supple, Trachea Midline Cardiovascular: Yes: Regular Rate and Rhythm Respiratory: Yes: On Venti-Mask, Poor Air Entry (rt side), Rhonchi Gastrointestinal: Yes: Normal Bowel Sounds, Soft Musculoskeletal: Yes: WNL Extremities: Yes: WNL Neurological: Yes: Alert, Other (dementia) Psychiatric: Yes: Other Labs: CBC, BMP 07/03/17 12:00 07/03/17 12:00 Imaging - Results Chest X-ray: Report Reviewed, Image Reviewed Cat Scan: Report Reviewed, Image Reviewed Assessment/Plan this patient with multiple medical problems admitted because of h/o of fall and found to ahve bilateral pneumonia i am going to treat it as hospital acquired pna patient with multiple medical problems Problem List - Problems (1) Pneumonia Code(s): J18.9 - PNEUMONIA, UNSPECIFIED ORGANISM (2) Accidental fall Code(s): W19.XXXA - UNSPECIFIED FALL, INITIAL ENCOUNTER Qualifiers: Encounter type: initial encounter Qualified Code(s): W19.XXXA - Unspecified fall, initial encounter (3) Dementia Code(s): F03.90 - UNSPECIFIED DEMENTIA WITHOUT BEHAVIORAL DISTURBANCE (4) Glaucoma Code(s): H40.9 - UNSPECIFIED GLAUCOMA (5) Hypertension Code(s): I10 - ESSENTIAL (PRIMARY) HYPERTENSION Qualifiers: Hypertension type: essential hypertension Qualified Code(s): I10 - Essential (primary) hypertension (6) Hypophosphatemia Code(s): E83.39 - OTHER DISORDERS OF PHOSPHORUS METABOLISM plan will start patient on zosyn will also add vanco rest as per surgery d/w the family
[2017-07-03] MEDS ORDERED: PIPERACILLIN/TAZOB 3.375 GM 50 ML IVPB SCH (14:45)
[2017-07-03] MEDS: NAPH,MB-DB/K PH,MBDB POWDER PACKET PO SCH ×2 (15:57→22:13)
[2017-07-03] MEDS: VANCOMYCIN 1,250 MG in DEXTROSE 5%-WATER - 250 ML IVPB SCH (17:23)
[2017-07-03] MEDS: PIPERACILLIN/TAZOB 3.375 GM 3.375 GM in DEXTROSE 5%-WATER - 100 ML IVPB SCH (17:36)
[2017-07-04] MEDS: PIPERACILLIN/TAZOB 3.375 GM 3.375 GM in DEXTROSE 5%-WATER - 100 ML IVPB SCH ×3 (01:18→17:25)
[2017-07-04] MEDS: DORZOLAMIDE 2% HCL OPHTHALMIC SOLUTION 10 ML BOTTLE OU SCH ×3 (05:45→21:45)
[2017-07-04] MEDS: BRIMONIDINE TARTRATE 0.2% OPHTHALMIC 5 ML BOTTLE OU SCH ×3 (05:45→21:44)
[2017-07-04 08:56] LABS: BASO % 0.3 % (0-2.0); EOS % 0.1 % (0-4.5); HEMATOCRIT 40.5 % (35.4-49); HEMOGLOBIN 13.2 GM/dL (11.7-16.9); MCH 27.9 pg (25.7-33.7); MCHC 32.5 g/dl (32.0-35.9); MEAN CELL VOLUME 85.8 fl (80-96); MEAN PLT VOLUME 7.9 fl (7.5-11.1); MONO % 13.9 % (3.8-10.2); NEUT % 70.7 % (42.8-82.8); PLATELET COUNT 191 K/MM3 (134-434); RBC 4.72 M/mm3 (4.00-5.60); RDW 14.5 % (11.9-15.9); WHITE BLOOD COUNT 4.3 K/mm3 (4.0-10.0)
[2017-07-04 09:32] LABS: CHLORIDE 100 mmol/L (98-107); POTASSIUM 3.4 mmol/L (3.5-5.1); SODIUM 133 mmol/L (136-145)
[2017-07-04] MEDS ORDERED: PT OWN MED DRAWER 7, Y5N ONE ×6 (09:45→21:40)
[2017-07-04] MEDS: guaiFENesin 200 MG/10 ML 10 ML UNIT-DOSE CUPS PO SCH ×2 (09:49→21:43)
[2017-07-04] MEDS: LIPASE/PROTEASE/AMYLASE 6,000 UNIT CAPSULE PO SCH ×3 (09:50→18:43)
[2017-07-04] MEDS: SIMETHICONE 80 MG TAB.CHEW (FP) PO SCH ×4 (09:50→21:44)
[2017-07-04] MEDS: ACETAMINOPHEN 325 MG TABLET (FP) PO SCH ×4 (09:51→21:43)
[2017-07-04] MEDS: SENNOSIDES 8.6MG TABLET (FP) PO SCH (09:51)
[2017-07-04] MEDS: RANITIDINE HCL 150 MG TABLET (FP) PO SCH ×2 (09:51→21:43)
[2017-07-04] MEDS: CHOLECALCIFEROL (VITAMIN D3) 1,000 UNIT TABLET (FP) PO SCH (09:51)
[2017-07-04] MEDS: MIRTAZAPINE 15 MG TABLET (FP) PO SCH (09:51)
[2017-07-04] MEDS: LATANOPROST 0.005% OPHTH SOLN 2.5ML BOTTLE OU SCH (09:52)
[2017-07-04] MEDS: TIMOLOL 0.5% OPHTHALMIC SOL 5 ML BOTTLE OU SCH (09:52)
[2017-07-04] MEDS: NAPH,MB-DB/K PH,MBDB POWDER PACKET PO SCH (09:52)
[2017-07-04 09:58] LABS: ANION GAP 11 (8-16); BLOOD UREA NITROGEN 11 mg/dL (7-18); CALCIUM 7.2 mg/dL (8.5-10.1); CO2 22 mmol/L (21-32); CREATININE 0.6 mg/dL (0.7-1.3); GLUCOSE,RANDOM 90 mg/dL (74-106); MAGNESIUM 2.1 mg/dL (1.8-2.4)
--- NOTE | 2017-07-04 11:45 | PN ---
Progress Note, Physician Chief Complaint: Mr Alba says he is feeling well. Denies cp, sob, n/v. Says his cough is better. - Current Medication List Current Medications: Active Medications Acetaminophen (Tylenol -) 650 mg PO QID [facility] Last Admin: 07/04/17 09:51 Dose: 650 mg Brimonidine Tartrate (Alphagan 0.2% -) 1 drop OU TID [facility] Last Admin: 07/04/17 05:45 Dose: 1 drop Cholecalciferol (Vitamin D3 -) 1,000 unit PO DAILY [facility] Last Admin: 07/04/17 09:51 Dose: 1,000 unit Dorzolamide HCl (Trusopt 2%) 1 drop OU TID [facility] Last Admin: 07/04/17 05:45 Dose: 1 drop Guaifenesin (Robitussin -) 10 ml PO BID [facility] Last Admin: 07/04/17 09:49 Dose: 10 ml Vancomycin HCl 1,250 mg/ (Dextrose) 250 mls @ 125 mls/hr IVPB DAILY@1600 [facility] PRN Reason: Protocol Last Admin: 07/03/17 17:23 Dose: 125 mls/hr Piperacillin Sod/Tazobactam (Sod 3.375 gm/ Dextrose) 100 mls @ 200 mls/hr IVPB Q8H-IV [facility] Last Admin: 07/04/17 10:12 Dose: 200 mls/hr Latanoprost (Xalatan 0.005% Eye Drops -) 1 drop OU DAILY [facility] Last Admin: 07/04/17 09:52 Dose: 1 drop Mirtazapine (Remeron -) 15 mg PO DAILY [facility] Last Admin: 07/04/17 09:51 Dose: 15 mg Non-Formulary Medication (Vit A/Vit C/Vit E/Zinc/Copper [Preservision Areds Tablet]) 1 each PO BID [facility] Pancrelipase (Creon Dr 6,000 Units Capsule) 4 cap PO TIDCM [facility] Last Admin: 07/04/17 09:50 Dose: 4 cap Potassium Phos/Sodium Phos (Phos-Nak Packet -) 1 packet PO BID [facility] Last Admin: 07/04/17 09:52 Dose: 1 packet Ranitidine HCl (Zantac -) 75 mg PO BID [facility] Last Admin: 07/04/17 09:51 Dose: 75 mg Senna (Senna -) 2 tab PO DAILY [facility] Last Admin: 07/04/17 09:51 Dose: 2 tab Simethicone (Mylicon -) 80 mg PO QID [facility] Last Admin: 07/04/17 09:50 Dose: 80 mg Timolol Maleate (Timoptic 0.5%) 1 drop OU DAILY [facility] Last Admin: 07/04/17 09:52 Dose: 1 drop - Objective Vital Signs: Vital Signs Temperature 37.6 C 07/04/17 08:33 Pulse Rate 88 07/04/17 08:33 Respiratory Rate 20 07/04/17 08:36 Blood Pressure 153/95 07/04/17 08:33 O2 Sat by Pulse Oximetry (%) 94 L 07/04/17 08:36 Constitutional: Yes: Well Nourished, No Distress, Calm Cardiovascular: Yes: Regular Rate and Rhythm. No: Gallop, Murmur, Rub Respiratory: Yes: Regular, On Nasal O2, Rhonchi (slight). No: CTA Bilaterally, Rales, Wheezes Gastrointestinal: Yes: Normal Bowel Sounds, Soft, Distention. No: Tenderness Extremities: Yes: WNL Edema: No Labs: CBC, BMP 07/04/17 07:45 07/04/17 07:45 INR, PTT INR 1.09 (0.82-1.09) 06/30/17 11:35 Problem List - Problems (1) Pneumonia Code(s): J18.9 - PNEUMONIA, UNSPECIFIED ORGANISM (2) Accidental fall Code(s): W19.XXXA - UNSPECIFIED FALL, INITIAL ENCOUNTER Qualifiers: Encounter type: initial encounter Qualified Code(s): W19.XXXA - Unspecified fall, initial encounter (3) Dementia Code(s): F03.90 - UNSPECIFIED DEMENTIA WITHOUT BEHAVIORAL DISTURBANCE (4) Glaucoma Code(s): H40.9 - UNSPECIFIED GLAUCOMA (5) Hypertension Code(s): I10 - ESSENTIAL (PRIMARY) HYPERTENSION Qualifiers: Hypertension type: essential hypertension Qualified Code(s): I10 - Essential (primary) hypertension (6) Hypophosphatemia Code(s): E83.39 - OTHER DISORDERS OF PHOSPHORUS METABOLISM Assessment/Plan (1) Pneumonia Assessment/Plan: -multifocal pneumonia -appreciate ID assistance -treating for HCAP -now on zosyn and vancomycin -sepsis present on admission, now resolved Code(s): J18.9 - PNEUMONIA, UNSPECIFIED ORGANISM (2) Accidental fall Assessment/Plan: -PT consulted and note reviewed -continue PT while here, discharge back to [facility] when on oral antibiotics Code(s): W19.XXXA - UNSPECIFIED FALL, INITIAL ENCOUNTER Qualifiers: Encounter type: initial encounter Qualified Code(s): W19.XXXA - Unspecified fall, initial encounter (3) Dementia Assessment/Plan: -stable Code(s): F03.90 - UNSPECIFIED DEMENTIA WITHOUT BEHAVIORAL DISTURBANCE (4) Glaucoma Assessment/Plan: -continue eye drops Code(s): H40.9 - UNSPECIFIED GLAUCOMA (5) Hypertension Assessment/Plan: -not on antihypertensives -SBP in the 130-150s, but at his age and with fall risk does not need aggressive blood pressure therapy -continue to monitor Code(s): I10 - ESSENTIAL (PRIMARY) HYPERTENSION Qualifiers: Hypertension type: essential hypertension Qualified Code(s): I10 - Essential (primary) hypertension (6) Hypophosphatemia Assessment/Plan: -replaced Code(s): E83.39 - OTHER DISORDERS OF PHOSPHORUS METABOLISM
--- NOTE | 2017-07-04 16:25 | PN ---
Progress Note, Physician History of Present Illness: patient looking much better family in the room more awake and alert no complaints - Current Medication List Current Medications: Active Medications Acetaminophen (Tylenol -) 650 mg PO QID [facility] Last Admin: 07/04/17 14:54 Dose: Not Given Brimonidine Tartrate (Alphagan 0.2% -) 1 drop OU TID [facility] Last Admin: 07/04/17 13:51 Dose: 1 drop Cholecalciferol (Vitamin D3 -) 1,000 unit PO DAILY [facility] Last Admin: 07/04/17 09:51 Dose: 1,000 unit Dorzolamide HCl (Trusopt 2%) 1 drop OU TID [facility] Last Admin: 07/04/17 13:51 Dose: 1 drop Guaifenesin (Robitussin -) 10 ml PO BID [facility] Last Admin: 07/04/17 09:49 Dose: 10 ml Vancomycin HCl 1,250 mg/ (Dextrose) 250 mls @ 125 mls/hr IVPB DAILY@1600 [facility] PRN Reason: Protocol Last Admin: 07/03/17 17:23 Dose: 125 mls/hr Piperacillin Sod/Tazobactam (Sod 3.375 gm/ Dextrose) 100 mls @ 200 mls/hr IVPB Q8H-IV [facility] Last Admin: 07/04/17 10:12 Dose: 200 mls/hr Latanoprost (Xalatan 0.005% Eye Drops -) 1 drop OU DAILY [facility] Last Admin: 07/04/17 09:52 Dose: 1 drop Mirtazapine (Remeron -) 15 mg PO DAILY [facility] Last Admin: 07/04/17 09:51 Dose: 15 mg Non-Formulary Medication (Vit A/Vit C/Vit E/Zinc/Copper [Preservision Areds Tablet]) 1 each PO BID [facility] Pancrelipase (Creon Dr 6,000 Units Capsule) 4 cap PO TIDCM [facility] Last Admin: 07/04/17 13:50 Dose: 4 cap Ranitidine HCl (Zantac -) 75 mg PO BID [facility] Last Admin: 07/04/17 09:51 Dose: 75 mg Senna (Senna -) 2 tab PO DAILY [facility] Last Admin: 07/04/17 09:51 Dose: 2 tab Simethicone (Mylicon -) 80 mg PO QID [facility] Last Admin: 07/04/17 13:50 Dose: 80 mg Timolol Maleate (Timoptic 0.5%) 1 drop OU DAILY [facility] Last Admin: 07/04/17 09:52 Dose: 1 drop - Objective Vital Signs: Vital Signs Temperature 98.7 F 07/04/17 14:14 Pulse Rate 91 H 07/04/17 14:14 Respiratory Rate 18 07/04/17 14:14 Blood Pressure 145/75 07/04/17 14:14 O2 Sat by Pulse Oximetry (%) 94 L 07/04/17 08:36 Constitutional: Yes: No Distress, Calm Cardiovascular: Yes: Regular Rate and Rhythm Respiratory: Yes: Poor Air Entry, Other (improving) Gastrointestinal: Yes: Normal Bowel Sounds, Soft Musculoskeletal: Yes: WNL Extremities: Yes: WNL Neurological: Yes: Alert, Oriented Psychiatric: Yes: Alert, Oriented Labs: CBC, BMP 07/04/17 07:45 07/04/17 07:45 INR, PTT INR 1.09 (0.82-1.09) 06/30/17 11:35 Assessment/Plan Problem List - Problems (1) Pneumonia Code(s): J18.9 - PNEUMONIA, UNSPECIFIED ORGANISM (2) Accidental fall Code(s): W19.XXXA - UNSPECIFIED FALL, INITIAL ENCOUNTER Qualifiers: Encounter type: initial encounter Qualified Code(s): W19.XXXA - Unspecified fall, initial encounter (3) Dementia Code(s): F03.90 - UNSPECIFIED DEMENTIA WITHOUT BEHAVIORAL DISTURBANCE (4) Glaucoma Code(s): H40.9 - UNSPECIFIED GLAUCOMA (5) Hypertension Code(s): I10 - ESSENTIAL (PRIMARY) HYPERTENSION Qualifiers: Hypertension type: essential hypertension Qualified Code(s): I10 - Essential (primary) hypertension (6) Hypophosphatemia Code(s): E83.39 - OTHER DISORDERS OF PHOSPHORUS METABOLISM plan continue abx out of bed physio rest as per primary team
[2017-07-04] MEDS: VANCOMYCIN 1,250 MG in DEXTROSE 5%-WATER - 250 ML IVPB SCH (17:12)
[2017-07-05] MEDS: PIPERACILLIN/TAZOB 3.375 GM 3.375 GM in DEXTROSE 5%-WATER - 100 ML IVPB SCH ×3 (01:12→17:13)
[2017-07-05] MEDS ORDERED: PT OWN MED DRAWER 7, Y5N ONE ×3 (02:42→21:40)
[2017-07-05] MEDS: BRIMONIDINE TARTRATE 0.2% OPHTHALMIC 5 ML BOTTLE OU SCH ×4 (06:23→21:48)
[2017-07-05] MEDS: DORZOLAMIDE 2% HCL OPHTHALMIC SOLUTION 10 ML BOTTLE OU SCH ×3 (06:23→21:47)
[2017-07-05 08:31] LABS: BASO % 0.2 % (0-2.0); EOS % 0.4 % (0-4.5); HEMATOCRIT 42.5 % (35.4-49); HEMOGLOBIN 13.9 GM/dL (11.7-16.9); LYMPH % 10.3 % (8-40); MCH 27.8 pg (25.7-33.7); MCHC 32.8 g/dl (32.0-35.9); MEAN CELL VOLUME 84.8 fl (80-96); MEAN PLT VOLUME 7.2 fl (7.5-11.1); MONO % 13.2 % (3.8-10.2); NEUT % 75.9 % (42.8-82.8); PLATELET COUNT 217 K/MM3 (134-434); RBC 5.02 M/mm3 (4.00-5.60); RDW 14.7 % (11.9-15.9); WHITE BLOOD COUNT 6.2 K/mm3 (4.0-10.0)
[2017-07-05 08:56] LABS: ANION GAP 11 (8-16); BLOOD UREA NITROGEN 10 mg/dL (7-18); CALCIUM 7.6 mg/dL (8.5-10.1); CHLORIDE 99 mmol/L (98-107); CO2 23 mmol/L (21-32); CREATININE 0.6 mg/dL (0.7-1.3); GLUCOSE,RANDOM 100 mg/dL (74-106); MAGNESIUM 2.1 mg/dL (1.8-2.4); PHOSPHOROUS 2.5 mg/dL (2.5-4.9); POTASSIUM 3.4 mmol/L (3.5-5.1); SODIUM 133 mmol/L (136-145)
[2017-07-05] MEDS: RANITIDINE HCL 150 MG TABLET (FP) PO SCH ×2 (09:16→21:47)
[2017-07-05] MEDS: LIPASE/PROTEASE/AMYLASE 6,000 UNIT CAPSULE PO SCH ×3 (09:17→17:13)
[2017-07-05] MEDS: CHOLECALCIFEROL (VITAMIN D3) 1,000 UNIT TABLET (FP) PO SCH (09:18)
[2017-07-05] MEDS: MIRTAZAPINE 15 MG TABLET (FP) PO SCH (09:18)
[2017-07-05] MEDS: SIMETHICONE 80 MG TAB.CHEW (FP) PO SCH ×4 (09:18→21:47)
[2017-07-05] MEDS: SENNOSIDES 8.6MG TABLET (FP) PO SCH (09:18)
[2017-07-05] MEDS: ACETAMINOPHEN 325 MG TABLET (FP) PO SCH ×4 (09:18→21:47)
[2017-07-05] MEDS: guaiFENesin 200 MG/10 ML 10 ML UNIT-DOSE CUPS PO SCH ×2 (09:19→21:48)
[2017-07-05] MEDS: TIMOLOL 0.5% OPHTHALMIC SOL 5 ML BOTTLE OU SCH (09:19)
[2017-07-05] MEDS: LATANOPROST 0.005% OPHTH SOLN 2.5ML BOTTLE OU SCH (09:19)
[2017-07-05] MEDS ORDERED: POTASSIUM CHLORIDE TABS 20 MEQ TABLET.ER (FP) PO ONE (11:11)
--- NOTE | 2017-07-05 11:45 | PN ---
Progress Note, Physician Chief Complaint: Mr Alba says he is feeling well. Says he is not coughing much. Denies cp, sob , n/v. - Current Medication List Current Medications: Active Medications Acetaminophen (Tylenol -) 650 mg PO QID [facility] Last Admin: 07/05/17 09:18 Dose: 650 mg Brimonidine Tartrate (Alphagan 0.2% -) 1 drop OU TID [facility] Last Admin: 07/05/17 06:23 Dose: 1 drop Cholecalciferol (Vitamin D3 -) 1,000 unit PO DAILY [facility] Last Admin: 07/05/17 09:18 Dose: 1,000 unit Dorzolamide HCl (Trusopt 2%) 1 drop OU TID [facility] Last Admin: 07/05/17 06:23 Dose: 1 drop Guaifenesin (Robitussin -) 10 ml PO BID [facility] Last Admin: 07/05/17 09:19 Dose: 10 ml Vancomycin HCl 1,250 mg/ (Dextrose) 250 mls @ 125 mls/hr IVPB DAILY@1600 [facility] PRN Reason: Protocol Last Admin: 07/04/17 17:12 Dose: 125 mls/hr Piperacillin Sod/Tazobactam (Sod 3.375 gm/ Dextrose) 100 mls @ 200 mls/hr IVPB Q8H-IV [facility] Last Admin: 07/05/17 09:20 Dose: 200 mls/hr Latanoprost (Xalatan 0.005% Eye Drops -) 1 drop OU DAILY [facility] Last Admin: 07/05/17 09:19 Dose: 1 drop Mirtazapine (Remeron -) 15 mg PO DAILY [facility] Last Admin: 07/05/17 09:18 Dose: 15 mg Non-Formulary Medication (Vit A/Vit C/Vit E/Zinc/Copper [Preservision Areds Tablet]) 1 each PO BID [facility] Pancrelipase (Creon Dr 6,000 Units Capsule) 4 cap PO TIDCM [facility] Last Admin: 07/05/17 09:17 Dose: 4 cap Potassium Chloride (K-Dur -) 40 meq PO ONCE ONE Stop: 07/05/17 11:12 Ranitidine HCl (Zantac -) 75 mg PO BID [facility] Last Admin: 07/05/17 09:16 Dose: 75 mg Senna (Senna -) 2 tab PO DAILY [facility] Last Admin: 07/05/17 09:18 Dose: 2 tab Simethicone (Mylicon -) 80 mg PO QID [facility] Last Admin: 07/05/17 09:18 Dose: 80 mg Timolol Maleate (Timoptic 0.5%) 1 drop OU DAILY [facility] Last Admin: 07/05/17 09:19 Dose: 1 drop - Objective Vital Signs: Vital Signs Temperature 36.9 C 07/05/17 09:08 Pulse Rate 98 H 07/05/17 09:08 Respiratory Rate 19 07/05/17 09:08 Blood Pressure 146/74 07/05/17 09:08 O2 Sat by Pulse Oximetry (%) 95 07/04/17 21:00 Constitutional: Yes: Well Nourished, No Distress, Calm Cardiovascular: Yes: Regular Rate and Rhythm, Other (distant). No: Gallop, Murmur, Rub Respiratory: Yes: Regular, On Nasal O2, Rhonchi. No: Rales, Wheezes Gastrointestinal: Yes: Normal Bowel Sounds, Soft, Distention. No: Tenderness Extremities: Yes: WNL Edema: No Labs: CBC, BMP 07/05/17 08:05 07/05/17 08:05 INR, PTT INR 1.09 (0.82-1.09) 06/30/17 11:35 Problem List - Problems (1) Pneumonia Code(s): J18.9 - PNEUMONIA, UNSPECIFIED ORGANISM (2) Accidental fall Code(s): W19.XXXA - UNSPECIFIED FALL, INITIAL ENCOUNTER Qualifiers: Encounter type: initial encounter Qualified Code(s): W19.XXXA - Unspecified fall, initial encounter (3) Dementia Code(s): F03.90 - UNSPECIFIED DEMENTIA WITHOUT BEHAVIORAL DISTURBANCE (4) Glaucoma Code(s): H40.9 - UNSPECIFIED GLAUCOMA (5) Hypertension Code(s): I10 - ESSENTIAL (PRIMARY) HYPERTENSION Qualifiers: Hypertension type: essential hypertension Qualified Code(s): I10 - Essential (primary) hypertension (6) Hypophosphatemia Code(s): E83.39 - OTHER DISORDERS OF PHOSPHORUS METABOLISM Assessment/Plan (1) Pneumonia Assessment/Plan: -multifocal pneumonia -appreciate ID assistance -treating for HCAP -continue zosyn and vancomycin per ID -sepsis present on admission, now resolved Code(s): J18.9 - PNEUMONIA, UNSPECIFIED ORGANISM (2) Accidental fall Assessment/Plan: -PT consulted and note reviewed -continue PT while here, discharge back to [facility] when on oral antibiotics Code(s): W19.XXXA - UNSPECIFIED FALL, INITIAL ENCOUNTER Qualifiers: Encounter type: initial encounter Qualified Code(s): W19.XXXA - Unspecified fall, initial encounter (3) Dementia Assessment/Plan: -stable Code(s): F03.90 - UNSPECIFIED DEMENTIA WITHOUT BEHAVIORAL DISTURBANCE (4) Glaucoma Assessment/Plan: -continue eye drops Code(s): H40.9 - UNSPECIFIED GLAUCOMA (5) Hypertension Assessment/Plan: -monitor, does not need antihypertensives at this time Code(s): I10 - ESSENTIAL (PRIMARY) HYPERTENSION Qualifiers: Hypertension type: essential hypertension Qualified Code(s): I10 - Essential (primary) hypertension (6) Hypophosphatemia Assessment/Plan: -replaced Code(s): E83.39 - OTHER DISORDERS OF PHOSPHORUS METABOLISM
[2017-07-05] MEDS: VANCOMYCIN 1,250 MG in DEXTROSE 5%-WATER - 250 ML IVPB SCH (15:14)
--- NOTE | 2017-07-05 19:00 | PN ---
Progress Note, Physician History of Present Illness: stable no new events - Current Medication List Current Medications: Active Medications Acetaminophen (Tylenol -) 650 mg PO QID [facility] Last Admin: 07/05/17 17:16 Dose: 650 mg Brimonidine Tartrate (Alphagan 0.2% -) 1 drop OU TID [facility] Last Admin: 07/05/17 15:13 Dose: 1 drop Cholecalciferol (Vitamin D3 -) 1,000 unit PO DAILY [facility] Last Admin: 07/05/17 09:18 Dose: 1,000 unit Dorzolamide HCl (Trusopt 2%) 1 drop OU TID [facility] Last Admin: 07/05/17 15:13 Dose: 1 drop Guaifenesin (Robitussin -) 10 ml PO BID [facility] Last Admin: 07/05/17 09:19 Dose: 10 ml Vancomycin HCl 1,250 mg/ (Dextrose) 250 mls @ 125 mls/hr IVPB DAILY@1600 [facility] PRN Reason: Protocol Last Admin: 07/05/17 15:14 Dose: 125 mls/hr Piperacillin Sod/Tazobactam (Sod 3.375 gm/ Dextrose) 100 mls @ 200 mls/hr IVPB Q8H-IV [facility] Last Admin: 07/05/17 17:13 Dose: 200 mls/hr Latanoprost (Xalatan 0.005% Eye Drops -) 1 drop OU DAILY [facility] Last Admin: 07/05/17 09:19 Dose: 1 drop Mirtazapine (Remeron -) 15 mg PO DAILY [facility] Last Admin: 07/05/17 09:18 Dose: 15 mg Pancrelipase (Creon Dr 6,000 Units Capsule) 4 cap PO TIDCM [facility] Last Admin: 07/05/17 17:13 Dose: 4 cap Ranitidine HCl (Zantac -) 75 mg PO BID [facility] Last Admin: 07/05/17 09:16 Dose: 75 mg Senna (Senna -) 2 tab PO DAILY [facility] Last Admin: 07/05/17 09:18 Dose: 2 tab Simethicone (Mylicon -) 80 mg PO QID [facility] Last Admin: 07/05/17 17:16 Dose: 80 mg Timolol Maleate (Timoptic 0.5%) 1 drop OU DAILY [facility] Last Admin: 07/05/17 09:19 Dose: 1 drop - Objective Vital Signs: Vital Signs Temperature 97.4 F L 07/05/17 15:00 Pulse Rate 86 07/05/17 15:00 Respiratory Rate 20 07/05/17 15:00 Blood Pressure 138/87 07/05/17 15:00 O2 Sat by Pulse Oximetry (%) 95 07/05/17 09:08 Constitutional: Yes: No Distress, Calm Cardiovascular: Yes: S1, S2 Respiratory: Yes: On Nasal O2, Rhonchi Gastrointestinal: Yes: Normal Bowel Sounds, Soft Musculoskeletal: Yes: WNL Extremities: Yes: WNL Neurological: Yes: Alert Psychiatric: Yes: Alert Labs: CBC, BMP 07/05/17 08:05 07/05/17 08:05 INR, PTT INR 1.09 (0.82-1.09) 06/30/17 11:35 Assessment/Plan Problem List - Problems (1) Pneumonia Code(s): J18.9 - PNEUMONIA, UNSPECIFIED ORGANISM (2) Accidental fall Code(s): W19.XXXA - UNSPECIFIED FALL, INITIAL ENCOUNTER Qualifiers: Encounter type: initial encounter Qualified Code(s): W19.XXXA - Unspecified fall, initial encounter (3) Dementia Code(s): F03.90 - UNSPECIFIED DEMENTIA WITHOUT BEHAVIORAL DISTURBANCE (4) Glaucoma Code(s): H40.9 - UNSPECIFIED GLAUCOMA (5) Hypertension Code(s): I10 - ESSENTIAL (PRIMARY) HYPERTENSION Qualifiers: Hypertension type: essential hypertension Qualified Code(s): I10 - Essential (primary) hypertension (6) Hypophosphatemia Code(s): E83.39 - OTHER DISORDERS OF PHOSPHORUS METABOLISM plan continue abx out of bed physio rest as per primary team
[2017-07-06] MEDS: PIPERACILLIN/TAZOB 3.375 GM 3.375 GM in DEXTROSE 5%-WATER - 100 ML IVPB SCH ×3 (01:06→18:16)
[2017-07-06] MEDS: DORZOLAMIDE 2% HCL OPHTHALMIC SOLUTION 10 ML BOTTLE OU SCH ×3 (05:38→21:43)
[2017-07-06] MEDS: BRIMONIDINE TARTRATE 0.2% OPHTHALMIC 5 ML BOTTLE OU SCH ×3 (05:38→21:43)
[2017-07-06 06:11] LABS: BASO % 0.3 % (0-2.0); HEMOGLOBIN 12.8 GM/dL (11.7-16.9); LYMPH % 14.2 % (8-40); MCH 28.6 pg (25.7-33.7); MCHC 33.7 g/dl (32.0-35.9); MEAN PLT VOLUME 7.7 fl (7.5-11.1); MONO % 15.9 % (3.8-10.2); NEUT % 68.6 % (42.8-82.8); PLATELET COUNT 250 K/MM3 (134-434); RBC 4.47 M/mm3 (4.00-5.60); RDW 14.7 % (11.9-15.9); WHITE BLOOD COUNT 5.9 K/mm3 (4.0-10.0)
[2017-07-06 06:45] LABS: ANION GAP 11 (8-16); BLOOD UREA NITROGEN 8 mg/dL (7-18); CALCIUM 7.8 mg/dL (8.5-10.1); CHLORIDE 101 mmol/L (98-107); CO2 24 mmol/L (21-32); CREATININE 0.6 mg/dL (0.7-1.3); GLUCOSE,RANDOM 95 mg/dL (74-106); PHOSPHOROUS 2.7 mg/dL (2.5-4.9); POTASSIUM 3.5 mmol/L (3.5-5.1); SODIUM 136 mmol/L (136-145)
[2017-07-06] MEDS: ACETAMINOPHEN 325 MG TABLET (FP) PO SCH ×5 (10:00→21:43)
[2017-07-06] MEDS ORDERED: PT OWN MED DRAWER 7, Y5N ONE ×4 (10:13→21:33)
[2017-07-06] MEDS: guaiFENesin 200 MG/10 ML 10 ML UNIT-DOSE CUPS PO SCH ×2 (10:22→21:43)
[2017-07-06] MEDS: MIRTAZAPINE 15 MG TABLET (FP) PO SCH (10:23)
[2017-07-06] MEDS: RANITIDINE HCL 150 MG TABLET (FP) PO SCH ×2 (10:23→21:42)
[2017-07-06] MEDS: LIPASE/PROTEASE/AMYLASE 6,000 UNIT CAPSULE PO SCH ×3 (10:24→18:16)
[2017-07-06] MEDS: SENNOSIDES 8.6MG TABLET (FP) PO SCH (10:24)
[2017-07-06] MEDS: SIMETHICONE 80 MG TAB.CHEW (FP) PO SCH ×4 (10:24→21:42)
[2017-07-06] MEDS: CHOLECALCIFEROL (VITAMIN D3) 1,000 UNIT TABLET (FP) PO SCH (10:24)
[2017-07-06] MEDS: TIMOLOL 0.5% OPHTHALMIC SOL 5 ML BOTTLE OU SCH (10:25)
[2017-07-06] MEDS: LATANOPROST 0.005% OPHTH SOLN 2.5ML BOTTLE OU SCH (10:26)
--- NOTE | 2017-07-06 12:31 | PN ---
Progress Note, Physician History of Present Illness: stable comfortable sitting in chair - Current Medication List Current Medications: Active Medications Acetaminophen (Tylenol -) 650 mg PO QID [facility] Last Admin: 07/06/17 10:22 Dose: 650 mg Brimonidine Tartrate (Alphagan 0.2% -) 1 drop OU TID [facility] Last Admin: 07/06/17 05:38 Dose: 1 drop Cholecalciferol (Vitamin D3 -) 1,000 unit PO DAILY [facility] Last Admin: 07/06/17 10:24 Dose: 1,000 unit Dorzolamide HCl (Trusopt 2%) 1 drop OU TID [facility] Last Admin: 07/06/17 05:38 Dose: 1 drop Guaifenesin (Robitussin -) 10 ml PO BID [facility] Last Admin: 07/06/17 10:22 Dose: 10 ml Vancomycin HCl 1,250 mg/ (Dextrose) 250 mls @ 125 mls/hr IVPB DAILY@1600 [facility] PRN Reason: Protocol Last Admin: 07/05/17 15:14 Dose: 125 mls/hr Piperacillin Sod/Tazobactam (Sod 3.375 gm/ Dextrose) 100 mls @ 200 mls/hr IVPB Q8H-IV [facility] Last Admin: 07/06/17 10:26 Dose: 200 mls/hr Latanoprost (Xalatan 0.005% Eye Drops -) 1 drop OU DAILY [facility] Last Admin: 07/06/17 10:26 Dose: 1 drop Mirtazapine (Remeron -) 15 mg PO DAILY [facility] Last Admin: 07/06/17 10:23 Dose: 15 mg Pancrelipase (Creon Dr 6,000 Units Capsule) 4 cap PO TIDCM [facility] Last Admin: 07/06/17 10:24 Dose: 4 cap Ranitidine HCl (Zantac -) 75 mg PO BID [facility] Last Admin: 07/06/17 10:23 Dose: 75 mg Senna (Senna -) 2 tab PO DAILY [facility] Last Admin: 07/06/17 10:24 Dose: 2 tab Simethicone (Mylicon -) 80 mg PO QID [facility] Last Admin: 07/06/17 10:24 Dose: 80 mg Timolol Maleate (Timoptic 0.5%) 1 drop OU DAILY [facility] Last Admin: 07/06/17 10:25 Dose: 1 drop - Objective Vital Signs: Vital Signs Temperature 98.0 F 07/06/17 06:37 Pulse Rate 93 H 07/06/17 06:37 Respiratory Rate 20 07/06/17 06:37 Blood Pressure 126/78 07/06/17 06:37 O2 Sat by Pulse Oximetry (%) 96 07/05/17 21:00 Constitutional: Yes: No Distress, Calm Cardiovascular: Yes: S1, S2 Respiratory: Yes: WNL, On Nasal O2, Poor Air Entry (bases) Gastrointestinal: Yes: Normal Bowel Sounds, Soft Musculoskeletal: Yes: WNL Extremities: Yes: WNL Neurological: Yes: Alert Psychiatric: Yes: Alert, Other Labs: CBC, BMP 07/06/17 05:40 07/06/17 05:40 INR, PTT INR 1.09 (0.82-1.09) 06/30/17 11:35 Assessment/Plan Problem List - Problems (1) Pneumonia Code(s): J18.9 - PNEUMONIA, UNSPECIFIED ORGANISM (2) Accidental fall Code(s): W19.XXXA - UNSPECIFIED FALL, INITIAL ENCOUNTER Qualifiers: Encounter type: initial encounter Qualified Code(s): W19.XXXA - Unspecified fall, initial encounter (3) Dementia Code(s): F03.90 - UNSPECIFIED DEMENTIA WITHOUT BEHAVIORAL DISTURBANCE (4) Glaucoma Code(s): H40.9 - UNSPECIFIED GLAUCOMA (5) Hypertension Code(s): I10 - ESSENTIAL (PRIMARY) HYPERTENSION Qualifiers: Hypertension type: essential hypertension Qualified Code(s): I10 - Essential (primary) hypertension (6) Hypophosphatemia Code(s): E83.39 - OTHER DISORDERS OF PHOSPHORUS METABOLISM plan continue abx out of bed physio rest as per primary team will check vanc trough tomorrow
--- NOTE | 2017-07-06 12:39 | PN ---
Progress Note, Physician Chief Complaint: Mr Alba says he is feeling well. States coughing is minimal. No cp, sob, n/v. - Current Medication List Current Medications: Active Medications Acetaminophen (Tylenol -) 650 mg PO QID [facility] Last Admin: 07/06/17 10:22 Dose: 650 mg Brimonidine Tartrate (Alphagan 0.2% -) 1 drop OU TID [facility] Last Admin: 07/06/17 05:38 Dose: 1 drop Cholecalciferol (Vitamin D3 -) 1,000 unit PO DAILY [facility] Last Admin: 07/06/17 10:24 Dose: 1,000 unit Dorzolamide HCl (Trusopt 2%) 1 drop OU TID [facility] Last Admin: 07/06/17 05:38 Dose: 1 drop Guaifenesin (Robitussin -) 10 ml PO BID [facility] Last Admin: 07/06/17 10:22 Dose: 10 ml Vancomycin HCl 1,250 mg/ (Dextrose) 250 mls @ 125 mls/hr IVPB DAILY@1600 [facility] PRN Reason: Protocol Last Admin: 07/05/17 15:14 Dose: 125 mls/hr Piperacillin Sod/Tazobactam (Sod 3.375 gm/ Dextrose) 100 mls @ 200 mls/hr IVPB Q8H-IV [facility] Last Admin: 07/06/17 10:26 Dose: 200 mls/hr Latanoprost (Xalatan 0.005% Eye Drops -) 1 drop OU DAILY [facility] Last Admin: 07/06/17 10:26 Dose: 1 drop Mirtazapine (Remeron -) 15 mg PO DAILY [facility] Last Admin: 07/06/17 10:23 Dose: 15 mg Pancrelipase (Creon Dr 6,000 Units Capsule) 4 cap PO TIDCM [facility] Last Admin: 07/06/17 10:24 Dose: 4 cap Ranitidine HCl (Zantac -) 75 mg PO BID [facility] Last Admin: 07/06/17 10:23 Dose: 75 mg Senna (Senna -) 2 tab PO DAILY [facility] Last Admin: 07/06/17 10:24 Dose: 2 tab Simethicone (Mylicon -) 80 mg PO QID [facility] Last Admin: 07/06/17 10:24 Dose: 80 mg Timolol Maleate (Timoptic 0.5%) 1 drop OU DAILY [facility] Last Admin: 07/06/17 10:25 Dose: 1 drop - Objective Vital Signs: Vital Signs Temperature 36.7 C 07/06/17 06:37 Pulse Rate 93 H 07/06/17 06:37 Respiratory Rate 20 07/06/17 06:37 Blood Pressure 126/78 07/06/17 06:37 O2 Sat by Pulse Oximetry (%) 96 07/05/17 21:00 Constitutional: Yes: Well Nourished, No Distress, Calm Cardiovascular: Yes: Regular Rate and Rhythm. No: Gallop, Murmur, Rub Respiratory: Yes: Regular, CTA Bilaterally, On Nasal O2. No: Rales, Rhonchi, Wheezes Gastrointestinal: Yes: Normal Bowel Sounds, Soft, Distention. No: Tenderness Extremities: Yes: WNL Edema: No Labs: CBC, BMP 07/06/17 05:40 07/06/17 05:40 INR, PTT INR 1.09 (0.82-1.09) 06/30/17 11:35 Problem List - Problems (1) Pneumonia Code(s): J18.9 - PNEUMONIA, UNSPECIFIED ORGANISM (2) Accidental fall Code(s): W19.XXXA - UNSPECIFIED FALL, INITIAL ENCOUNTER Qualifiers: Encounter type: initial encounter Qualified Code(s): W19.XXXA - Unspecified fall, initial encounter (3) Dementia Code(s): F03.90 - UNSPECIFIED DEMENTIA WITHOUT BEHAVIORAL DISTURBANCE (4) Glaucoma Code(s): H40.9 - UNSPECIFIED GLAUCOMA (5) Hypertension Code(s): I10 - ESSENTIAL (PRIMARY) HYPERTENSION Qualifiers: Hypertension type: essential hypertension Qualified Code(s): I10 - Essential (primary) hypertension (6) Hypophosphatemia Code(s): E83.39 - OTHER DISORDERS OF PHOSPHORUS METABOLISM Assessment/Plan (1) Pneumonia Assessment/Plan: -multifocal pneumonia -appreciate ID assistance -treating for HCAP -continue zosyn and vancomycin per ID -sepsis present on admission, now resolved -defer to ID change of antibiotics or finish course Code(s): J18.9 - PNEUMONIA, UNSPECIFIED ORGANISM (2) Accidental fall Assessment/Plan: -PT consulted and note reviewed -continue PT Code(s): W19.XXXA - UNSPECIFIED FALL, INITIAL ENCOUNTER Qualifiers: Encounter type: initial encounter Qualified Code(s): W19.XXXA - Unspecified fall, initial encounter (3) Dementia Assessment/Plan: -stable Code(s): F03.90 - UNSPECIFIED DEMENTIA WITHOUT BEHAVIORAL DISTURBANCE (4) Glaucoma Assessment/Plan: -continue eye drops Code(s): H40.9 - UNSPECIFIED GLAUCOMA (5) Hypertension Assessment/Plan: -monitor, does not need antihypertensives at this time Code(s): I10 - ESSENTIAL (PRIMARY) HYPERTENSION Qualifiers: Hypertension type: essential hypertension Qualified Code(s): I10 - Essential (primary) hypertension (6) Hypophosphatemia Assessment/Plan: -replaced Code(s): E83.39 - OTHER DISORDERS OF PHOSPHORUS METABOLISM
[2017-07-06] MEDS: VANCOMYCIN 1,250 MG in DEXTROSE 5%-WATER - 250 ML IVPB SCH (16:00)
[2017-07-07] MEDS: PIPERACILLIN/TAZOB 3.375 GM 3.375 GM in DEXTROSE 5%-WATER - 100 ML IVPB SCH ×3 (02:19→17:13)
[2017-07-07] MEDS: BRIMONIDINE TARTRATE 0.2% OPHTHALMIC 5 ML BOTTLE OU SCH ×3 (06:06→22:38)
[2017-07-07] MEDS: DORZOLAMIDE 2% HCL OPHTHALMIC SOLUTION 10 ML BOTTLE OU SCH ×3 (06:07→22:37)
[2017-07-07] MEDS: PATIENT'S OWN MEDICATION (NON-FORMULARY) (Vit A/Vit C/Vit E/Zinc/Copper [Preservision Ared PO SCH ×2 (08:22→08:27)
[2017-07-07] MEDS: PIPERACILLIN/TAZOB 3.375 GM 3.375 GM in DEXTROSE 5%-WATER - 50 ML IVPB SCH (08:27)
[2017-07-07 08:40] LABS: BASO % 0.3 % (0-2.0); EOS % 2.3 % (0-4.5); HEMATOCRIT 41.2 % (35.4-49); HEMOGLOBIN 13.5 GM/dL (11.7-16.9); LYMPH % 11.8 % (8-40); MCH 27.5 pg (25.7-33.7); MCHC 32.7 g/dl (32.0-35.9); MEAN CELL VOLUME 84.1 fl (80-96); MEAN PLT VOLUME 7.7 fl (7.5-11.1); MONO % 12.6 % (3.8-10.2); PLATELET COUNT 312 K/MM3 (134-434); RDW 14.4 % (11.9-15.9); WHITE BLOOD COUNT 6.6 K/mm3 (4.0-10.0)
--- NOTE | 2017-07-07 08:43 | PN ---
Progress Note (short form) - Note Progress Note: Patient resting in bed / no distress / productive cough . Labs from today pending. Laboratory Tests 07/06/17 07/06/17 05:40 05:40 WBC 5.9 RBC 4.47 Hgb 12.8 Hct 38.0 Plt Count 250 Sodium 136 Potassium 3.5 Chloride 101 Carbon Dioxide 24 Anion Gap 11 BUN 8 Creatinine 0.6 L Random Glucose 95 Calcium 7.8 L Phosphorus 2.7 Magnesium 2.0 p/e / stable / Afebrile / BP 141 / 73 Heent / neck supple Cor <> HS distant / S 1 S 2 Chest <> Rhonchi / decreased BS at bases. Abd <> soft / nontender Ext <> no edema Imp / Pneumonia Sepsis Dementia HTN Plan <> Cont Antibiotics as per ID. Follow labs / Lytes / mild HypoNA++ Monitor BP off meds. Stable .
[2017-07-07] MEDS ORDERED: PT OWN MED DRAWER 7, Y5N ONE ×5 (08:44→22:29)
[2017-07-07 08:58] LABS: BLOOD UREA NITROGEN 11 mg/dL (7-18); CHLORIDE 103 mmol/L (98-107); GLUCOSE,RANDOM 98 mg/dL (74-106); POTASSIUM 3.9 mmol/L (3.5-5.1); SODIUM 134 mmol/L (136-145)
[2017-07-07 09:06] LABS: ANION GAP 11 (8-16); CALCIUM 7.6 mg/dL (8.5-10.1); CO2 20 mmol/L (21-32); CREATININE 0.6 mg/dL (0.7-1.3); MAGNESIUM 2.2 mg/dL (1.8-2.4); PHOSPHOROUS 2.8 mg/dL (2.5-4.9)
[2017-07-07] MEDS: LIPASE/PROTEASE/AMYLASE 6,000 UNIT CAPSULE PO SCH ×3 (09:49→17:39)
[2017-07-07] MEDS: SENNOSIDES 8.6MG TABLET (FP) PO SCH (09:50)
[2017-07-07] MEDS: RANITIDINE HCL 150 MG TABLET (FP) PO SCH ×2 (09:50→22:37)
[2017-07-07] MEDS: ACETAMINOPHEN 325 MG TABLET (FP) PO SCH ×4 (09:50→22:37)
[2017-07-07] MEDS: MIRTAZAPINE 15 MG TABLET (FP) PO SCH (09:50)
[2017-07-07] MEDS: CHOLECALCIFEROL (VITAMIN D3) 1,000 UNIT TABLET (FP) PO SCH (09:50)
[2017-07-07] MEDS: SIMETHICONE 80 MG TAB.CHEW (FP) PO SCH ×4 (09:50→22:37)
[2017-07-07] MEDS: guaiFENesin 200 MG/10 ML 10 ML UNIT-DOSE CUPS PO SCH ×2 (09:50→22:37)
[2017-07-07] MEDS: LATANOPROST 0.005% OPHTH SOLN 2.5ML BOTTLE OU SCH (09:51)
[2017-07-07] MEDS: TIMOLOL 0.5% OPHTHALMIC SOL 5 ML BOTTLE OU SCH (09:51)
--- NOTE | 2017-07-07 14:18 | PN ---
Progress Note, Physician History of Present Illness: continues to improve still with cough with sputum - Current Medication List Current Medications: Active Medications Acetaminophen (Tylenol -) 650 mg PO QID [facility] Last Admin: 07/07/17 09:50 Dose: 650 mg Brimonidine Tartrate (Alphagan 0.2% -) 1 drop OU TID [facility] Last Admin: 07/07/17 06:06 Dose: 1 drop Cholecalciferol (Vitamin D3 -) 1,000 unit PO DAILY [facility] Last Admin: 07/07/17 09:50 Dose: 1,000 unit Dorzolamide HCl (Trusopt 2%) 1 drop OU TID [facility] Last Admin: 07/07/17 06:07 Dose: 1 drop Guaifenesin (Robitussin -) 10 ml PO BID [facility] Last Admin: 07/07/17 09:50 Dose: 10 ml Vancomycin HCl 1,250 mg/ (Dextrose) 250 mls @ 125 mls/hr IVPB DAILY@1600 [facility] PRN Reason: Protocol Last Admin: 07/06/17 16:00 Dose: 125 mls/hr Piperacillin Sod/Tazobactam (Sod 3.375 gm/ Dextrose) 100 mls @ 200 mls/hr IVPB Q8H-IV [facility] Last Admin: 07/07/17 09:49 Dose: 200 mls/hr Latanoprost (Xalatan 0.005% Eye Drops -) 1 drop OU DAILY [facility] Last Admin: 07/07/17 09:51 Dose: 1 drop Mirtazapine (Remeron -) 15 mg PO DAILY [facility] Last Admin: 07/07/17 09:50 Dose: 15 mg Pancrelipase (Creon Dr 6,000 Units Capsule) 4 cap PO TIDCM [facility] Last Admin: 07/07/17 09:49 Dose: 4 cap Ranitidine HCl (Zantac -) 75 mg PO BID [facility] Last Admin: 07/07/17 09:50 Dose: 75 mg Senna (Senna -) 2 tab PO DAILY [facility] Last Admin: 07/07/17 09:50 Dose: 2 tab Simethicone (Mylicon -) 80 mg PO QID [facility] Last Admin: 07/07/17 09:50 Dose: 80 mg Timolol Maleate (Timoptic 0.5%) 1 drop OU DAILY [facility] Last Admin: 07/07/17 09:51 Dose: 1 drop - Objective Vital Signs: Vital Signs Temperature 97.9 F 07/07/17 06:00 Pulse Rate 86 07/07/17 06:00 Respiratory Rate 22 07/07/17 09:00 Blood Pressure 141/73 07/07/17 06:00 O2 Sat by Pulse Oximetry (%) 95 07/07/17 09:00 Constitutional: Yes: No Distress, Calm Cardiovascular: Yes: Regular Rate and Rhythm Respiratory: Yes: Rhonchi, Other Gastrointestinal: Yes: Normal Bowel Sounds, Soft Musculoskeletal: Yes: WNL Extremities: Yes: WNL Neurological: Yes: Alert Psychiatric: Yes: Alert Labs: CBC, BMP 07/07/17 07:45 07/07/17 07:45 INR, PTT INR 1.09 (0.82-1.09) 06/30/17 11:35 Assessment/Plan Problem List - Problems (1) Pneumonia Code(s): J18.9 - PNEUMONIA, UNSPECIFIED ORGANISM (2) Accidental fall Code(s): W19.XXXA - UNSPECIFIED FALL, INITIAL ENCOUNTER Qualifiers: Encounter type: initial encounter Qualified Code(s): W19.XXXA - Unspecified fall, initial encounter (3) Dementia Code(s): F03.90 - UNSPECIFIED DEMENTIA WITHOUT BEHAVIORAL DISTURBANCE (4) Glaucoma Code(s): H40.9 - UNSPECIFIED GLAUCOMA (5) Hypertension Code(s): I10 - ESSENTIAL (PRIMARY) HYPERTENSION Qualifiers: Hypertension type: essential hypertension Qualified Code(s): I10 - Essential (primary) hypertension (6) Hypophosphatemia Code(s): E83.39 - OTHER DISORDERS OF PHOSPHORUS METABOLISM plan continue abx out of bed physio rest as per primary team incentive domingo
[2017-07-07] MEDS: VANCOMYCIN 1,250 MG in DEXTROSE 5%-WATER - 250 ML IVPB SCH (16:03)
[2017-07-08] MEDS: PIPERACILLIN/TAZOB 3.375 GM 3.375 GM in DEXTROSE 5%-WATER - 100 ML IVPB SCH ×3 (01:12→17:19)
[2017-07-08] MEDS: BRIMONIDINE TARTRATE 0.2% OPHTHALMIC 5 ML BOTTLE OU SCH ×3 (05:47→22:02)
[2017-07-08] MEDS: DORZOLAMIDE 2% HCL OPHTHALMIC SOLUTION 10 ML BOTTLE OU SCH ×3 (05:48→22:02)
[2017-07-08] MEDS ORDERED: PT OWN MED DRAWER 7, Y5N ONE ×4 (06:50→22:01)
--- NOTE | 2017-07-08 08:28 | PN ---
Progress Note (short form) - Note Progress Note: Patient states his cough is less / In no distress. ID note / followup appreciated. Laboratory Tests 07/06/17 07/06/17 05:40 05:40 WBC 5.9 RBC 4.47 Hgb 12.8 Hct 38.0 Plt Count 250 Sodium 136 Potassium 3.5 Chloride 101 Carbon Dioxide 24 Anion Gap 11 BUN 8 Creatinine 0.6 L Random Glucose 95 Calcium 7.8 L Phosphorus 2.7 Magnesium 2.0 p/e / stable / Temp 98 .0 / BP 106 / 70 / rr 22 / hr 89 Heent / neck supple / no carotid bruits. Cor <> HS remain distant / S 1 S 2 Chest <> Scattered rhonchi at bases. Abd <> soft / nontender Ext <> no edema / no calf tenderness. Imp / Pneumonia Sepsis Dementia HTN Plan <> I.V. Antibiotics as per ID. BMP pending / monitor lytes with mild HypoNA++ BP stable off meds. PT Rx .
[2017-07-08 09:11] LABS: ANION GAP 14 (8-16); BLOOD UREA NITROGEN 9 mg/dL (7-18); CALCIUM 7.7 mg/dL (8.5-10.1); CHLORIDE 102 mmol/L (98-107); CO2 19 mmol/L (21-32); GLUCOSE,RANDOM 88 mg/dL (74-106); SODIUM 135 mmol/L (136-145)
[2017-07-08 09:14] LABS: CREATININE 0.5 mg/dL (0.7-1.3)
[2017-07-08] MEDS: SIMETHICONE 80 MG TAB.CHEW (FP) PO SCH ×4 (09:33→22:02)
[2017-07-08] MEDS: SENNOSIDES 8.6MG TABLET (FP) PO SCH (09:33)
[2017-07-08] MEDS: CHOLECALCIFEROL (VITAMIN D3) 1,000 UNIT TABLET (FP) PO SCH (09:33)
[2017-07-08] MEDS: ACETAMINOPHEN 325 MG TABLET (FP) PO SCH ×4 (09:33→22:02)
[2017-07-08] MEDS: MIRTAZAPINE 15 MG TABLET (FP) PO SCH (09:33)
[2017-07-08] MEDS: guaiFENesin 200 MG/10 ML 10 ML UNIT-DOSE CUPS PO SCH ×2 (09:33→22:02)
[2017-07-08] MEDS: RANITIDINE HCL 150 MG TABLET (FP) PO SCH ×2 (09:34→22:02)
[2017-07-08] MEDS: LIPASE/PROTEASE/AMYLASE 6,000 UNIT CAPSULE PO SCH ×3 (09:36→17:12)
[2017-07-08] MEDS: TIMOLOL 0.5% OPHTHALMIC SOL 5 ML BOTTLE OU SCH (09:38)
[2017-07-08] MEDS: LATANOPROST 0.005% OPHTH SOLN 2.5ML BOTTLE OU SCH (09:51)
--- NOTE | 2017-07-08 14:43 | PN ---
Progress Note, Physician History of Present Illness: stable less coughing breathing easily no distress - Current Medication List Current Medications: Active Medications Acetaminophen (Tylenol -) 650 mg PO QID [facility] Last Admin: 07/08/17 09:33 Dose: 650 mg Brimonidine Tartrate (Alphagan 0.2% -) 1 drop OU TID [facility] Last Admin: 07/08/17 05:47 Dose: 1 drop Cholecalciferol (Vitamin D3 -) 1,000 unit PO DAILY [facility] Last Admin: 07/08/17 09:33 Dose: 1,000 unit Dorzolamide HCl (Trusopt 2%) 1 drop OU TID [facility] Last Admin: 07/08/17 05:48 Dose: 1 drop Guaifenesin (Robitussin -) 10 ml PO BID [facility] Last Admin: 07/08/17 09:33 Dose: 10 ml Vancomycin HCl 1,250 mg/ (Dextrose) 250 mls @ 125 mls/hr IVPB DAILY@1600 [facility] PRN Reason: Protocol Last Admin: 07/07/17 16:03 Dose: 125 mls/hr Piperacillin Sod/Tazobactam (Sod 3.375 gm/ Dextrose) 100 mls @ 200 mls/hr IVPB Q8H-IV [facility] Last Admin: 07/08/17 09:36 Dose: 200 mls/hr Latanoprost (Xalatan 0.005% Eye Drops -) 1 drop OU DAILY [facility] Last Admin: 07/08/17 09:51 Dose: 1 drop Mirtazapine (Remeron -) 15 mg PO DAILY [facility] Last Admin: 07/08/17 09:33 Dose: 15 mg Pancrelipase (Creon Dr 6,000 Units Capsule) 4 cap PO TIDCM [facility] Last Admin: 07/08/17 11:53 Dose: 4 cap Ranitidine HCl (Zantac -) 75 mg PO BID [facility] Last Admin: 07/08/17 09:34 Dose: 75 mg Senna (Senna -) 2 tab PO DAILY [facility] Last Admin: 07/08/17 09:33 Dose: 2 tab Simethicone (Mylicon -) 80 mg PO QID [facility] Last Admin: 07/08/17 09:33 Dose: 80 mg Timolol Maleate (Timoptic 0.5%) 1 drop OU DAILY [facility] Last Admin: 07/08/17 09:38 Dose: 1 drop - Objective Vital Signs: Vital Signs Temperature 98 F 07/08/17 06:00 Pulse Rate 89 07/08/17 06:00 Respiratory Rate 22 07/08/17 06:00 Blood Pressure 106/68 07/08/17 06:00 O2 Sat by Pulse Oximetry (%) 96 07/07/17 21:00 Constitutional: Yes: No Distress, Calm Cardiovascular: Yes: Regular Rate and Rhythm Respiratory: Yes: On Nasal O2, Poor Air Entry (bases), Rhonchi Gastrointestinal: Yes: Normal Bowel Sounds, Soft Musculoskeletal: Yes: WNL Extremities: Yes: WNL Neurological: Yes: Alert, Other Psychiatric: Yes: Alert Labs: CBC, BMP 07/07/17 07:45 07/08/17 07:17 INR, PTT INR 1.09 (0.82-1.09) 06/30/17 11:35 Assessment/Plan Problem List - Problems (1) Pneumonia Code(s): J18.9 - PNEUMONIA, UNSPECIFIED ORGANISM (2) Accidental fall Code(s): W19.XXXA - UNSPECIFIED FALL, INITIAL ENCOUNTER Qualifiers: Encounter type: initial encounter Qualified Code(s): W19.XXXA - Unspecified fall, initial encounter (3) Dementia Code(s): F03.90 - UNSPECIFIED DEMENTIA WITHOUT BEHAVIORAL DISTURBANCE (4) Glaucoma Code(s): H40.9 - UNSPECIFIED GLAUCOMA (5) Hypertension Code(s): I10 - ESSENTIAL (PRIMARY) HYPERTENSION Qualifiers: Hypertension type: essential hypertension Qualified Code(s): I10 - Essential (primary) hypertension (6) Hypophosphatemia Code(s): E83.39 - OTHER DISORDERS OF PHOSPHORUS METABOLISM plan continue abx out of bed physio rest as per primary team incentive domingo will stop vanco on sunday will switch to oral probably on sunday if patient continues to improve
[2017-07-08] MEDS: VANCOMYCIN 1,250 MG in DEXTROSE 5%-WATER - 250 ML IVPB SCH (17:00)
[2017-07-09] MEDS: PIPERACILLIN/TAZOB 3.375 GM 3.375 GM in DEXTROSE 5%-WATER - 100 ML IVPB SCH ×3 (01:45→17:30)
[2017-07-09] MEDS: BRIMONIDINE TARTRATE 0.2% OPHTHALMIC 5 ML BOTTLE OU SCH ×3 (06:18→21:32)
[2017-07-09] MEDS: DORZOLAMIDE 2% HCL OPHTHALMIC SOLUTION 10 ML BOTTLE OU SCH ×3 (06:18→21:32)
[2017-07-09] MEDS: LIPASE/PROTEASE/AMYLASE 6,000 UNIT CAPSULE PO SCH ×3 (08:00→17:30)
--- NOTE | 2017-07-09 09:00 | PN ---
Progress Note (short form) - Note Progress Note: Patient sitting up eating breakfast . No distress . No cough . ID followup appreciated. Laboratory Tests Selected Entries 07/09/17 06:00 Temperature 97.6 F Pulse Rate 92 H Respiratory 20 Rate Blood Pressure 148/72 Laboratory Tests 07/08/17 07:17 Sodium 135 L Potassium 4.0 Chloride 102 Carbon Dioxide 19 L Anion Gap 14 BUN 9 Creatinine 0.5 L Random Glucose 88 Calcium 7.7 L P/E V/S Stable. Heent / Neck supple / no carotid bruits. Cor <> S 1 S 2 Chest <> Few scattered rhonchi. Abd <> Soft / nontender / no rebound / no guarding . Ext <> No stasis edema. Imp / Pneumonia Dementia HTN Plan <> Cont as per ID with I.V. Antibiotics . Electrolytes stable. Continue to monitor labs . Pt Rx .
[2017-07-09] MEDS: RANITIDINE HCL 150 MG TABLET (FP) PO SCH ×2 (10:00→21:32)
[2017-07-09] MEDS: TIMOLOL 0.5% OPHTHALMIC SOL 5 ML BOTTLE OU SCH (10:49)
[2017-07-09] MEDS: ACETAMINOPHEN 325 MG TABLET (FP) PO SCH ×4 (11:07→21:33)
[2017-07-09] MEDS: MIRTAZAPINE 15 MG TABLET (FP) PO SCH (11:07)
[2017-07-09] MEDS: CHOLECALCIFEROL (VITAMIN D3) 1,000 UNIT TABLET (FP) PO SCH (11:07)
[2017-07-09] MEDS: guaiFENesin 200 MG/10 ML 10 ML UNIT-DOSE CUPS PO SCH ×2 (11:07→21:32)
[2017-07-09] MEDS: LATANOPROST 0.005% OPHTH SOLN 2.5ML BOTTLE OU SCH (11:07)
[2017-07-09] MEDS: SENNOSIDES 8.6MG TABLET (FP) PO SCH (11:08)
[2017-07-09] MEDS: SIMETHICONE 80 MG TAB.CHEW (FP) PO SCH ×4 (11:08→21:32)
--- NOTE | 2017-07-09 15:12 | PN ---
Progress Note, Physician History of Present Illness: stable no issues doing well - Current Medication List Current Medications: Active Medications Acetaminophen (Tylenol -) 650 mg PO QID [facility] Last Admin: 07/09/17 14:07 Dose: 650 mg Brimonidine Tartrate (Alphagan 0.2% -) 1 drop OU TID [facility] Last Admin: 07/09/17 14:09 Dose: 1 drop Cholecalciferol (Vitamin D3 -) 1,000 unit PO DAILY [facility] Last Admin: 07/09/17 11:07 Dose: 1,000 unit Dorzolamide HCl (Trusopt 2%) 1 drop OU TID [facility] Last Admin: 07/09/17 14:09 Dose: 1 drop Guaifenesin (Robitussin -) 10 ml PO BID [facility] Last Admin: 07/09/17 11:07 Dose: 10 ml Piperacillin Sod/Tazobactam (Sod 3.375 gm/ Dextrose) 100 mls @ 200 mls/hr IVPB Q8H-IV [facility] Last Admin: 07/09/17 10:48 Dose: 200 mls/hr Latanoprost (Xalatan 0.005% Eye Drops -) 1 drop OU DAILY [facility] Last Admin: 07/09/17 11:07 Dose: 1 drop Mirtazapine (Remeron -) 15 mg PO DAILY [facility] Last Admin: 07/09/17 11:07 Dose: 15 mg Pancrelipase (Creon Dr 6,000 Units Capsule) 4 cap PO TIDCM [facility] Last Admin: 07/09/17 11:08 Dose: 4 cap Ranitidine HCl (Zantac -) 75 mg PO BID [facility] Last Admin: 07/09/17 10:00 Dose: 75 mg Senna (Senna -) 2 tab PO DAILY [facility] Last Admin: 07/09/17 11:08 Dose: 2 tab Simethicone (Mylicon -) 80 mg PO QID [facility] Last Admin: 07/09/17 14:07 Dose: 80 mg Timolol Maleate (Timoptic 0.5%) 1 drop OU DAILY [facility] Last Admin: 07/09/17 10:49 Dose: 1 drop - Objective Vital Signs: Vital Signs Temperature 97.5 F L 07/09/17 14:50 Pulse Rate 79 07/09/17 14:50 Respiratory Rate 20 07/09/17 06:00 Blood Pressure 131/64 07/09/17 14:50 O2 Sat by Pulse Oximetry (%) 94 L 07/08/17 21:00 Constitutional: Yes: No Distress, Calm Cardiovascular: Yes: Regular Rate and Rhythm Respiratory: Yes: Poor Air Entry, Other Gastrointestinal: Yes: Normal Bowel Sounds, Soft Musculoskeletal: Yes: WNL Extremities: Yes: WNL Neurological: Yes: Alert, Other Psychiatric: Yes: Other Labs: CBC, BMP 07/07/17 07:45 07/08/17 07:17 INR, PTT INR 1.09 (0.82-1.09) 06/30/17 11:35 Assessment/Plan Problem List - Problems (1) Pneumonia Code(s): J18.9 - PNEUMONIA, UNSPECIFIED ORGANISM (2) Accidental fall Code(s): W19.XXXA - UNSPECIFIED FALL, INITIAL ENCOUNTER Qualifiers: Encounter type: initial encounter Qualified Code(s): W19.XXXA - Unspecified fall, initial encounter (3) Dementia Code(s): F03.90 - UNSPECIFIED DEMENTIA WITHOUT BEHAVIORAL DISTURBANCE (4) Glaucoma Code(s): H40.9 - UNSPECIFIED GLAUCOMA (5) Hypertension Code(s): I10 - ESSENTIAL (PRIMARY) HYPERTENSION Qualifiers: Hypertension type: essential hypertension Qualified Code(s): I10 - Essential (primary) hypertension (6) Hypophosphatemia Code(s): E83.39 - OTHER DISORDERS OF PHOSPHORUS METABOLISM plan continue abx out of bed physio rest as per primary team incentive domingo stopped vanco will switch to oral probably on sunday if patient continues to improve
[2017-07-09] MEDS ORDERED: PT OWN MED DRAWER 7, Y5N ONE (21:29)
[2017-07-10] MEDS: PIPERACILLIN/TAZOB 3.375 GM 3.375 GM in DEXTROSE 5%-WATER - 100 ML IVPB SCH ×3 (01:35→17:28)
[2017-07-10] MEDS: BRIMONIDINE TARTRATE 0.2% OPHTHALMIC 5 ML BOTTLE OU SCH ×2 (05:26→13:46)
[2017-07-10] MEDS: DORZOLAMIDE 2% HCL OPHTHALMIC SOLUTION 10 ML BOTTLE OU SCH ×2 (05:26→13:46)
[2017-07-10] MEDS ORDERED: PT OWN MED DRAWER 7, Y5N ONE ×6 (05:28→17:26)
[2017-07-10] MEDS: LIPASE/PROTEASE/AMYLASE 6,000 UNIT CAPSULE PO SCH ×3 (08:54→17:28)
[2017-07-10] MEDS: SIMETHICONE 80 MG TAB.CHEW (FP) PO SCH ×3 (09:35→17:28)
[2017-07-10] MEDS: MIRTAZAPINE 15 MG TABLET (FP) PO SCH (09:35)
[2017-07-10] MEDS: ACETAMINOPHEN 325 MG TABLET (FP) PO SCH ×3 (09:35→17:29)
[2017-07-10] MEDS: SENNOSIDES 8.6MG TABLET (FP) PO SCH (09:35)
[2017-07-10] MEDS: guaiFENesin 200 MG/10 ML 10 ML UNIT-DOSE CUPS PO SCH (09:36)
[2017-07-10] MEDS: TIMOLOL 0.5% OPHTHALMIC SOL 5 ML BOTTLE OU SCH (09:36)
[2017-07-10] MEDS: CHOLECALCIFEROL (VITAMIN D3) 1,000 UNIT TABLET (FP) PO SCH (09:36)
[2017-07-10] MEDS: RANITIDINE HCL 150 MG TABLET (FP) PO SCH (09:36)
[2017-07-10] MEDS: LATANOPROST 0.005% OPHTH SOLN 2.5ML BOTTLE OU SCH (09:38)
--- NOTE | 2017-07-10 12:43 | PN ---
Progress Note, Physician History of Present Illness: stable no issues doing well breathing much better comfortable - Current Medication List Current Medications: Active Medications Acetaminophen (Tylenol -) 650 mg PO QID [facility] Last Admin: 07/10/17 09:35 Dose: 650 mg Brimonidine Tartrate (Alphagan 0.2% -) 1 drop OU TID [facility] Last Admin: 07/10/17 05:26 Dose: 1 drop Cholecalciferol (Vitamin D3 -) 1,000 unit PO DAILY [facility] Last Admin: 07/10/17 09:36 Dose: 1,000 unit Dorzolamide HCl (Trusopt 2%) 1 drop OU TID [facility] Last Admin: 07/10/17 05:26 Dose: 1 drop Guaifenesin (Robitussin -) 10 ml PO BID [facility] Last Admin: 07/10/17 09:36 Dose: 10 ml Piperacillin Sod/Tazobactam (Sod 3.375 gm/ Dextrose) 100 mls @ 200 mls/hr IVPB Q8H-IV [facility] Last Admin: 07/10/17 09:54 Dose: 200 mls/hr Latanoprost (Xalatan 0.005% Eye Drops -) 1 drop OU DAILY [facility] Last Admin: 07/10/17 09:38 Dose: 1 drop Mirtazapine (Remeron -) 15 mg PO DAILY [facility] Last Admin: 07/10/17 09:35 Dose: 15 mg Pancrelipase (Creon Dr 6,000 Units Capsule) 4 cap PO TIDCM [facility] Last Admin: 07/10/17 12:13 Dose: 4 cap Ranitidine HCl (Zantac -) 75 mg PO BID [facility] Last Admin: 07/10/17 09:36 Dose: 75 mg Senna (Senna -) 2 tab PO DAILY [facility] Last Admin: 07/10/17 09:35 Dose: 2 tab Simethicone (Mylicon -) 80 mg PO QID [facility] Last Admin: 07/10/17 09:35 Dose: 80 mg Timolol Maleate (Timoptic 0.5%) 1 drop OU DAILY [facility] Last Admin: 07/10/17 09:36 Dose: 1 drop - Objective Vital Signs: Vital Signs Temperature 98.2 F 07/10/17 10:00 Pulse Rate 93 H 07/10/17 10:00 Respiratory Rate 20 07/10/17 10:00 Blood Pressure 155/74 07/10/17 10:00 O2 Sat by Pulse Oximetry (%) 97 07/10/17 09:00 Constitutional: Yes: No Distress, Calm Cardiovascular: Yes: Regular Rate and Rhythm Respiratory: Yes: Regular, Other (minimal cough) Gastrointestinal: Yes: Normal Bowel Sounds, Soft Musculoskeletal: Yes: WNL Extremities: Yes: WNL Neurological: Yes: Alert Labs: CBC, BMP 07/07/17 07:45 07/08/17 07:17 INR, PTT INR 1.09 (0.82-1.09) 06/30/17 11:35 Assessment/Plan Problem List - Problems (1) Pneumonia Code(s): J18.9 - PNEUMONIA, UNSPECIFIED ORGANISM (2) Accidental fall Code(s): W19.XXXA - UNSPECIFIED FALL, INITIAL ENCOUNTER Qualifiers: Encounter type: initial encounter Qualified Code(s): W19.XXXA - Unspecified fall, initial encounter (3) Dementia Code(s): F03.90 - UNSPECIFIED DEMENTIA WITHOUT BEHAVIORAL DISTURBANCE (4) Glaucoma Code(s): H40.9 - UNSPECIFIED GLAUCOMA (5) Hypertension Code(s): I10 - ESSENTIAL (PRIMARY) HYPERTENSION Qualifiers: Hypertension type: essential hypertension Qualified Code(s): I10 - Essential (primary) hypertension (6) Hypophosphatemia Code(s): E83.39 - OTHER DISORDERS OF PHOSPHORUS METABOLISM plan can switch to oral augmentin for couple of days incentive domingo rest ct current mgmt rest as per primary team
--- NOTE | 2017-07-10 13:26 | DS ---
Physical Examination Vital Signs: Vital Signs Temperature 36.8 C 07/10/17 10:00 Pulse Rate 93 H 07/10/17 10:00 Respiratory Rate 20 07/10/17 10:00 Blood Pressure 155/74 07/10/17 10:00 O2 Sat by Pulse Oximetry (%) 97 07/10/17 09:00 Constitutional: Yes: Well Nourished, No Distress, Calm Cardiovascular: Yes: Regular Rate and Rhythm. No: Gallop, Murmur, Rub Respiratory: Yes: Regular, CTA Bilaterally. No: Rales, Rhonchi, Wheezes Gastrointestinal: Yes: Normal Bowel Sounds, Soft. No: Distention, Tenderness Extremities: Yes: WNL Edema: No Labs: CBC, BMP 07/07/17 07:45 07/08/17 07:17 Discharge Summary Reason For Visit: ACCIDENTAL FALL Current Active Problems Accidental fall (Acute) Hypophosphatemia (Acute) Hospital Course: (1) Pneumonia Code(s): J18.9 - PNEUMONIA, UNSPECIFIED ORGANISM (2) Accidental fall Code(s): W19.XXXA - UNSPECIFIED FALL, INITIAL ENCOUNTER Qualifiers: Encounter type: initial encounter Qualified Code(s): W19.XXXA - Unspecified fall, initial encounter (3) Dementia Code(s): F03.90 - UNSPECIFIED DEMENTIA WITHOUT BEHAVIORAL DISTURBANCE (4) Glaucoma Code(s): H40.9 - UNSPECIFIED GLAUCOMA (5) Hypertension Code(s): I10 - ESSENTIAL (PRIMARY) HYPERTENSION Qualifiers: Hypertension type: essential hypertension Qualified Code(s): I10 - Essential (primary) hypertension (6) Hypophosphatemia Code(s): E83.39 - OTHER DISORDERS OF PHOSPHORUS METABOLISM Mr Alba is a pleasant 89 year old male from [facility] who presents with HCAP. He was admitted to the hospital and started on zosyn. He improved and was seen by ID, his zosyn was continued for a full dose. He is currently doing well and is safe for transition to augmentin. Case d/w ID who stated patient should be continued on augmentin for 3 more days, this was ordered. He is safe for discharge back to SNF. 32 minutes spent in preparation of this discharge Condition: Stable - Instructions Diet, Activity, Other Instructions: regular diet. Up with assistance, further activity per PT at SNF. Referrals: Houston Neff MD [Staff Physician] - Johny Live MD [Staff Physician] - Disposition: ASSISTED FACILITY - Home Medications Comprehensive Discharge Medication List: Ambulatory Orders Aa/Hydrolyzed Collagen, Whey [Lps 15-30 Liquid] 30 ml PO DAILY 06/30/17 Acetaminophen [Tylenol] 650 mg PO QID 06/30/17 Bimatoprost [Lumigan] 1 drop OU DAILY 06/30/17 Brimonidine Tartrate [Alphagan 0.2% -] 1 drop TID 06/30/17 Cholecalciferol (Vitamin D3) [Vitamin D3] 1,000 unit PO DAILY 06/30/17 Dorzolamide HCl [Trusopt 2% -] 1 drop TID 06/30/17 Guaifenesin [Expectorant] 200 mg PO BID 06/30/17 Lipase/Protease/Amylase [Creon Dr 12,000 Units Capsule] 2 tab PO TID 06/30/17 Mag Hydrox/Al Hydrox/Simeth [Mylanta Oral Suspension -] 30 ml PO Q6H 06/30/17 Metronidazole 1% Cream [Metrocream 1% Cream -] 1 applic TP BID 06/30/17 Mirtazapine [Remeron -] 15 mg PO DAILY 06/30/17 Ranitidine HCl [Zantac 75] 75 mg PO BID 06/30/17 Sennosides [Senna] 2 tab PO DAILY 06/30/17 Simethicone [Gas Relief 80] 80 mg PO QID 06/30/17 Timolol 0.5% [Timoptic 0.5%] 1 drop OU DAILY 06/30/17 Vit A/Vit C/Vit E/Zinc/Copper [Preservision Areds Tablet] 1 each PO BID Amoxicillin/Potassium Clav [Augmentin 875-125 Tablet] 1 each PO BID 3 Days tablet 07/10/17
[2017-07-10 14:43] VITALS: BP 148/70; PULSE 83; TEMP 98.3
== END 2017-07-10 18:32 | DRG 871 ==
LOC: JER 10:53 → JERBED 15:56 → J6S 17:45
PROVIDERS: ADMIT Internal Medicine; ATTEND Internal Medicine Geriatric Medicine
DX: A41.9 Sepsis, unspecified organism (principal); J18.9 Pneumonia, unspecified organism; E87.1 Hypo-osmolality and hyponatremia; F03.90 Unspecified dementia, unspecified severity, without behavioral disturbance, psychotic disturbance, mood disturbance, and anxiety; I10 Essential (primary) hypertension; H40.9 Unspecified glaucoma; W18.39XA Other fall on same level, initial encounter; Y93.89 Activity, other specified; Y92.128 Other place in nursing home as the place of occurrence of the external cause; R00.0 Tachycardia, unspecified; E83.39 Other disorders of phosphorus metabolism
CPT/HCPCS: 36415; 70450-TC; 71010-TC; 71250-TC; 72125-TC; 73030-TC-LT; 73070-TC-LT; 73110-TC-LT; 73130-TC-LT; 80048; 80053; 81003; 81015; 82550; 82553; 83605; 83735; 84100; 84484; 85025; 85610; 85730; 86850; 86900; 86901; 87040; 87086; 87804; 93005; 93010; 97116-GP; 97161-GP; 99285-25; G0480

== ENCOUNTER 2017-07-15 19:21 | Inpatient (IN) | payer OTHER ==
[2017-07-15 19:57] VITALS: BMI 21.1
--- NOTE | 2017-07-15 20:32 | PDOC ---
History of Present Illness - General History Source: Family Exam Limitations: Dementia - History of Present Illness Initial Comments: 07/15/17 20:56 The patient is an 89 year old male with a significant PMH of dementia, HTN, and glaucoma who presents to the emergency department from [facility] via EMS for fever and left wrist pain s/p mechanical fall several days ago. The patient reportedly had a fall at his [place], was admitted to this hospital and recently discharged back [place] to [place]. As per family, the patient participated in physical therapy yesterday, however, has been complaining of pain to his left wrist and hand. The daughter states she noticed he was not his happy self today. Allergies: NKDA <Carmina Don - Last Filed: 07/15/17 20:56> <Randa Ramirez - Last Filed: 07/21/17 06:38> - General Chief Complaint: Edema Stated Complaint: LEFT HAND SWELLING Time Seen by Provider: 07/15/17 19:27 Past History <Carmina Don - Last Filed: 07/15/17 20:56> - Past Medical History Anemia: No Asthma: No Cancer: No Cardiac Disorders: Yes CVA: No COPD: No CHF: No DVT: No Dementia: Yes Diabetes: No GI Disorders: Yes (GERD) Disorders: No HTN: Yes Hypercholesterolemia: Yes Liver Disease: No Seizures: No Thyroid Disease: No - Surgical History Abdominal Surgery: No Appendectomy: No Cardiac Surgery: No Cholecystectomy: No Lung Surgery: No Neurologic Surgery: No Orthopedic Surgery: No - Immunization History Immunization Up to Date: Yes - Suicide/Smoking/Psychosocial Hx Smoking Status: No Smoking History: Never smoked Have you smoked in the past 12 months: No Number of Cigarettes Smoked Daily: 0 Information on smoking cessation initiated: No Hx Alcohol Use: No Drug/Substance Use Hx: No Substance Use Type: None Hx Substance Use Treatment: No <Randa Ramirez - Last Filed: 07/21/17 06:38> - Past Medical History Allergies/Adverse Reactions: Allergies Allergy/AdvReac Type Severity Reaction Status Date / Time No Known Allergies Allergy Verified 07/15/17 19:41 Home Medications: Ambulatory Orders Aa/Hydrolyzed Collagen, Whey [Lps 15-30 Liquid] 30 ml PO DAILY 06/30/17 Acetaminophen [Tylenol] 650 mg PO QID 06/30/17 Bimatoprost [Lumigan] 1 drop OU DAILY 06/30/17 Brimonidine Tartrate [Alphagan 0.2% -] 1 drop TID 06/30/17 Cholecalciferol (Vitamin D3) [Vitamin D3] 1,000 unit PO DAILY 06/30/17 Dorzolamide HCl [Trusopt 2% -] 1 drop TID 06/30/17 Guaifenesin [Expectorant] 200 mg PO BID 06/30/17 Lipase/Protease/Amylase [Creon Dr 12,000 Units Capsule] 2 tab PO TID 06/30/17 Mag Hydrox/Al Hydrox/Simeth [Mylanta Oral Suspension -] 30 ml PO Q6H 06/30/17 Metronidazole 1% Cream [Metrocream 1% Cream -] 1 applic TP BID 06/30/17 Mirtazapine [Remeron -] 15 mg PO DAILY 06/30/17 Ranitidine HCl [Zantac 75] 75 mg PO BID 06/30/17 Sennosides [Senna] 2 tab PO DAILY 06/30/17 Simethicone [Gas Relief 80] 80 mg PO QID 06/30/17 Timolol 0.5% [Timoptic 0.5%] 1 drop OU DAILY 06/30/17 Vit A/Vit C/Vit E/Zinc/Copper [Preservision Areds Tablet] 1 each PO BID Celecoxib [CeleBREX -] 100 mg PO BID 2 Days capsule 07/20/17 Review of Systems - Review of Systems Able to Perform ROS?: No (dementia) <Carmina Don - Last Filed: 07/15/17 20:56> *Physical Exam - Vital Signs Last Vital Signs Temp Pulse Resp BP Pulse Ox 101.9 F H 120 H 20 120/71 96 07/15/17 20:24 07/15/17 19:38 07/15/17 19:38 07/15/17 19:38 07/15/17 19:38 - Physical Exam Comments: 07/15/17 20:56 GENERAL: Awake, alert, and oriented to person and place, not time. in no acute distress HEAD: No signs of trauma EYES: PERRLA, EOMI, sclera anicteric, conjunctiva clear ENT: Auricles normal inspection, hearing grossly normal, nares patent, oropharynx clear without exudates. Moist mucosa NECK: Normal ROM, supple, no lymphadenopathy, JVD, or masses LUNGS: (+) dry cough. Breath sounds equal, clear to auscultation bilaterally. No wheezes, and no crackles HEART: Regular rate and rhythm, normal S1 and S2, no murmurs, rubs or gallops ABDOMEN: Soft, nontender, normoactive bowel sounds. No guarding, no rebound. No masses EXTREMITIES: (+) left wrist swelling, tenderness, and deformity with bruising. There is a healing skin tear to the ulnar side of the dorsum of left hand which is likely the source of infection. No clubbing or cyanosis. No cords. Remainder of extremities are normal, with full ROM and no palpable or visual deformities. NEUROLOGICAL: Cranial nerves II through XII grossly intact. Normal speech, SKIN: Warm, Dry, normal turgor, no rashes or lesions noted. <Carmina Don - Last Filed: 07/15/17 20:56> - Vital Signs Last Vital Signs Temp Pulse Resp BP Pulse Ox 101.9 F H 120 H 20 120/71 96 07/15/17 20:24 07/15/17 19:38 07/15/17 19:38 07/15/17 19:38 07/15/17 19:38 <Randa Ramirez - Last Filed: 07/21/17 06:38> ED Treatment Course - LABORATORY CBC & Chemistry Diagram: 07/20/17 06:30 07/20/17 06:30 <Randa Ramirez - Last Filed: 07/21/17 06:38> Medical Decision Making - Medical Decision Making 07/21/17 06:37 Pt comes with arm cellulitis and infection/inflammation. Also sepsis by labs. Pt will be hydrated. teated with abx and admitted for ortho eval and iV abx and pain management. <Randa Ramirez - Last Filed: 07/21/17 06:38> *DC/Admit/Observation/Transfer - Attestations Scribe Attestion: 07/15/17 20:59 Documentation prepared by Carmina Don, acting as medical device sales for Randa Ramirez MD <Carmina Don - Last Filed: 07/15/17 20:56> - Discharge Dispostion Admit: Yes <Randa Ramirez - Last Filed: 07/21/17 06:38> Diagnosis at time of Disposition: Sepsis, Hyponatremia, Soft tissue infection - Discharge Dispostion Disposition: [facility] Condition at time of disposition: Stable
[2017-07-15] MEDS ORDERED: CLINDAMYCIN 600MG PREMIX IVPB 600 MG/50 ML BAG IVPB ONE ×2 (20:43→20:45)
[2017-07-15] MEDS ORDERED: VANCOMYCIN 1,000 MG in DEXTROSE 5%-WATER - 250 ML IVPB ONE (20:44)
[2017-07-15] MEDS ORDERED: ACETAMINOPHEN 1000 MG/100 ML VIAL (NON FORMULARY) IVPB ONE (20:44)
[2017-07-15] MEDS ORDERED: ACETAMINOPHEN INJECTION 100 ML IVPB ONE (20:45)
[2017-07-15] MEDS ORDERED: morphine CARPU-JECT 2 MG/1 ML DISP.SYRIN IVPUSH ONE (20:45)
[2017-07-15 21:06] LABS: VENOUS PC02 31.9 mmHg (38-52); VENOUS PH 7.47 (7.32-7.42); VENOUS PO2 50.1 mmHg (28-48)
[2017-07-15] MEDS ORDERED: VANCOMYCIN 1 GRAM (PRE-DOCKED) 1,000 MG/250 ML BAG IVPB ONE (21:09)
[2017-07-15] MEDS ORDERED: morphine CARPU-JECT 10 MG/1 ML DISP.SYRIN ONE (21:10)
[2017-07-15 21:18] LABS: BASO % 0.3 % (0-2.0); HEMATOCRIT 41.5 % (35.4-49); HEMOGLOBIN 13.5 GM/dL (11.7-16.9); LYMPH % 4.2 % (8-40); MCH 27.7 pg (25.7-33.7); MCHC 32.5 g/dl (32.0-35.9); MEAN CELL VOLUME 85.3 fl (80-96); MEAN PLT VOLUME 7.8 fl (7.5-11.1); MONO % 17.2 % (3.8-10.2); NEUT % 78.3 % (42.8-82.8); PLATELET COUNT 503 K/MM3 (134-434); RBC 4.87 M/mm3 (4.00-5.60); RDW 14.8 % (11.9-15.9); WHITE BLOOD COUNT 15.2 K/mm3 (4.0-10.0)
[2017-07-15] MEDS ORDERED: MAG HYDROX/AL HYDROX/SIMETH 30 ML UNIT-DOSE CUP ONE (21:20)
[2017-07-15] MEDS ORDERED: FAMOTIDINE 20 MG/50 ML IVPB 20 MG/50 ML MG IVPB ONE (21:21)
[2017-07-15 21:38] LABS: INR 1.19 (0.82-1.09); PROTHROMBIN TIME (PATIENT) 13.5 SEC (9.98-11.88)
[2017-07-15 21:50] LABS: ANION GAP 12 (8-16); BLOOD UREA NITROGEN 18 mg/dL (7-18); CALCIUM 8.7 mg/dL (8.5-10.1); CHLORIDE 94 mmol/L (98-107); CO2 23 mmol/L (21-32); CREATININE 0.7 mg/dL (0.7-1.3); GLUCOSE,RANDOM 112 mg/dL (74-106); POTASSIUM 4.8 mmol/L (3.5-5.1); SGOT/AST 27 U/L (15-37); SGPT/ALT 61 U/L (12-78); SODIUM 129 mmol/L (136-145)
[2017-07-15 21:57] LABS: ALK PHOS 139 U/L (45-117); BILIRUBIN,TOTAL 0.6 mg/dL (0.2-1.0); TOT PROT 6.7 g/dl (6.4-8.2)
--- NOTE | 2017-07-15 23:22 | PN ---
Teaching Attending Note Name of Resident: Jeff Anaya ATTENDING PHYSICIAN STATEMENT I saw and evaluated the patient. I reviewed the resident's note and discussed the case with the resident. I agree with the resident's findings and plan as documented. SUBJECTIVE: 89 yo M with pmhx. of dementia, htn, and glaucoma who presents from [facility] for Left wrist pain and fever. Pt. fell on 06/30 and per chart, was treated for a pneumonia and d/c'd /. and was Today Noticed his wrist was very painful and red. History is otherwise limited due to patient being a poor historian. As per chart pt. has had persistant swelling of left wrist since then. PCP: Dr. Neff OBJECTIVE: Physical: VS: Vital Signs Period Temp Pulse Resp BP Sys/Weber Pulse Ox Last 24 Hr 97.2 F-101.9 F 106-120 18-20 117-120/71-74 96-97 GEN: NAD, resting in bed HEENT: NCAT, PERRL, throat without erythema or exudates CARD: RRR S1, S2 RESP: CTAB ABD: BSx4, NTD to palpatio EXT: L. Hand erythmatous with scab scar near L. thumb, erythema extending to wrist, pulses intact, rest of extremities - C/C/E CBCD WBC 15.2 K/mm3 (4.0-10.0) H D 07/15/17 20:40 RBC 4.87 M/mm3 (4.00-5.60) 07/15/17 20:40 Hgb 13.5 GM/dL (11.7-16.9) 07/15/17 20:40 Hct 41.5 % (35.4-49) 07/15/17 20:40 MCV 85.3 fl (80-96) 07/15/17 20:40 MCHC 32.5 g/dl (32.0-35.9) 07/15/17 20:40 RDW 14.8 % (11.9-15.9) 07/15/17 20:40 Plt Count 503 K/MM3 (134-434) H D 07/15/17 20:40 MPV 7.8 fl (7.5-11.1) 07/15/17 20:40 CMP Sodium 129 mmol/L (136-145) L 07/15/17 20:40 Potassium 4.8 mmol/L (3.5-5.1) 07/15/17 20:40 Chloride 94 mmol/L (98-107) L 07/15/17 20:40 Carbon Dioxide 23 mmol/L (21-32) D 07/15/17 20:40 Anion Gap 12 (8-16) 07/15/17 20:40 BUN 18 mg/dL (7-18) D 07/15/17 20:40 Creatinine 0.7 mg/dL (0.7-1.3) D 07/15/17 20:40 Creat Clearance w eGFR > 60 (>60) 07/15/17 20:40 Random Glucose 112 mg/dL (74-106) H D 07/15/17 20:40 Calcium 8.7 mg/dL (8.5-10.1) 07/15/17 20:40 Total Bilirubin 0.6 mg/dL (0.2-1.0) 07/15/17 20:40 AST 27 U/L (15-37) D 07/15/17 20:40 ALT 61 U/L (12-78) D 07/15/17 20:40 Alkaline Phosphatase 139 U/L (45-117) H D 07/15/17 20:40 Total Protein 6.7 g/dl (6.4-8.2) 07/15/17 20:40 Albumin 3.0 g/dl (3.4-5.0) L 07/15/17 20:40 CARDIAC ENZYMES Creatine Kinase 23 IU/L (39-308) L 07/15/17 20:40 Troponin I < 0.02 ng/ml (0.00-0.05) 07/15/17 20:40 Urine Test Results Urine Color Yellow 07/16/17 01:10 Urine Appearance Clear 07/16/17 01:10 Urine pH 6.0 (5.0-8.0) 07/16/17 01:10 Ur Specific [place] 1.016 (1.001-1.035) 07/16/17 01:10 Urine Protein Negative (NEGATIVE) 07/16/17 01:10 Urine Glucose (UA) Negative (NEGATIVE) 07/16/17 01:10 Urine Ketones Negative (NEGATIVE) 07/16/17 01:10 Urine Blood 3+ (NEGATIVE) H 07/16/17 01:10 Urine Nitrite Negative (NEGATIVE) 07/16/17 01:10 Urine Bilirubin Negative (NEGATIVE) 07/16/17 01:10 Ur Leukocyte Esterase Negative (NEGATIVE) 07/16/17 01:10 Ur Epithelial Cells Rare /HPF (FEW) 07/16/17 01:10 Urine Test Results Urine Color Yellow 07/16/17 01:10 Urine Appearance Clear 07/16/17 01:10 Urine pH 6.0 (5.0-8.0) 07/16/17 01:10 Ur Specific [place] 1.016 (1.001-1.035) 07/16/17 01:10 Urine Protein Negative (NEGATIVE) 07/16/17 01:10 Urine Glucose (UA) Negative (NEGATIVE) 07/16/17 01:10 Urine Ketones Negative (NEGATIVE) 07/16/17 01:10 Urine Blood 3+ (NEGATIVE) H 07/16/17 01:10 Urine Nitrite Negative (NEGATIVE) 07/16/17 01:10 Urine Bilirubin Negative (NEGATIVE) 07/16/17 01:10 Ur Leukocyte Esterase Negative (NEGATIVE) 07/16/17 01:10 Ur Epithelial Cells Rare /HPF (FEW) 07/16/17 01:10 Hand Xray- Pending Read Ambulatory Orders Aa/Hydrolyzed Collagen, Whey [Lps 15-30 Liquid] 30 ml PO DAILY 06/30/17 Acetaminophen [Tylenol] 650 mg PO QID 06/30/17 Bimatoprost [Lumigan] 1 drop OU DAILY 06/30/17 Brimonidine Tartrate [Alphagan 0.2% -] 1 drop TID 06/30/17 Cholecalciferol (Vitamin D3) [Vitamin D3] 1,000 unit PO DAILY 06/30/17 Dorzolamide HCl [Trusopt 2% -] 1 drop TID 06/30/17 Guaifenesin [Expectorant] 200 mg PO BID 06/30/17 Lipase/Protease/Amylase [Creon Dr 12,000 Units Capsule] 2 tab PO TID 06/30/17 Mag Hydrox/Al Hydrox/Simeth [Mylanta Oral Suspension -] 30 ml PO Q6H 06/30/17 Metronidazole 1% Cream [Metrocream 1% Cream -] 1 applic TP BID 06/30/17 Mirtazapine [Remeron -] 15 mg PO DAILY 06/30/17 Ranitidine HCl [Zantac 75] 75 mg PO BID 06/30/17 Sennosides [Senna] 2 tab PO DAILY 06/30/17 Simethicone [Gas Relief 80] 80 mg PO QID 06/30/17 Timolol 0.5% [Timoptic 0.5%] 1 drop OU DAILY 06/30/17 Vit A/Vit C/Vit E/Zinc/Copper [Preservision Areds Tablet] 1 each PO BID Meloxicam 7.5 mg PO DAILY 07/15/17 ASSESSMENT AND PLAN: 89 yo M with pmhx. of dementia, htn, and glaucoma who presents from [facility] for Left wrist pain and fever. Pt. fell on 06/30 and per chart, was treated for a pneumonia and d/c'd 07/10, being admitted for severe sepsis due to cellulitis 1.) Severe Sepsis - Most likely due to L. hand cellulitis - Gentle IVF - Repear LA - Fraga Cx - Prior Ua + for E. Feacalis - Would Con't Vanco/Clinda - ID consult - ESR/CRP 2.) Thrombocytosis - Most likely reactive - Trend 3.) Glaucoma -C/W home meds 4.) Hyponatremia - Mild - U studies - Trend - Do not inc. >0.5mEQ/hr or 8 in 24 hrs 5.) Dvt PPx - Heparin [address] in Med-Sx
--- NOTE | 2017-07-15 23:55 | HP ---
CHIEF COMPLAINT: L hand swelling PCP: Dr. Neff Source: Patient (pt w/ dementia), chart review HISTORY OF PRESENT ILLNESS: 89 yo man w/ pmh of HTN, Dementia (alzheimers), glaucoma who presents to ED from [facility] for fever and persistent L wrist pain and swelling. Per chart review, pt with unwitnessed mechanical fall 06/30 and presumed FOOSH on L hand, found to have muiltifocal PNA, treated with vanc/zosyn for suspected HCAP and discharged back to [place] on 07/10. Pt now presents to ED from [place] for persistent pain and swelling in L hand and fevers at [place]. Pt complaining of L hand pain again during PT yesterday. Per daughter, appears in worse mood today. Pt with moderate dementia and provides limited hx, however denies fevers/chills, SOB, chest pain, cough, GREGORY, abdominal pain, N/V, dysuria, diarrhea, new rashes. No recent travel. Prior imaging w/ no fx of L wrist or arm noted. PCP is Dr. Neff. 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 PAST SURGICAL HISTORY: ?ocular surgery Social History: Smoking: Denies Alcohol: Denies Drugs: Denies Family History: Noncontributory Allergies No Known Allergies Allergy (Verified 07/15/17 19:41) HOME MEDICATIONS: Home Medications Medication Instructions Recorded Aa/Hydrolyzed Collagen, Whey [Lps 30 ml PO DAILY 06/30/17 15-30 Liquid] Acetaminophen [Tylenol] 650 mg PO QID 06/30/17 Bimatoprost [Lumigan] 1 drop OU DAILY 06/30/17 Brimonidine Tartrate [Alphagan 1 drop TID 06/30/17 0.2% -] Cholecalciferol (Vitamin D3) 1,000 unit PO DAILY 06/30/17 [Vitamin D3] Dorzolamide HCl [Trusopt 2% -] 1 drop TID 06/30/17 Guaifenesin [Expectorant] 200 mg PO BID 06/30/17 Lipase/Protease/Amylase [Creon Dr 2 tab PO TID 06/30/17 12,000 Units Capsule] Mag Hydrox/Al Hydrox/Simeth 30 ml PO Q6H 06/30/17 [Mylanta Oral Suspension -] Metronidazole 1% Cream [Metrocream 1 applic TP BID 06/30/17 1% Cream -] Mirtazapine [Remeron -] 15 mg PO DAILY 06/30/17 Ranitidine HCl [Zantac 75] 75 mg PO BID 06/30/17 Sennosides [Senna] 2 tab PO DAILY 06/30/17 Simethicone [Gas Relief 80] 80 mg PO QID 06/30/17 Timolol 0.5% [Timoptic 0.5%] 1 drop OU DAILY 06/30/17 Vit A/Vit C/Vit E/Zinc/Copper 1 each PO BID 06/30/17 [Preservision Areds Tablet] Amoxicillin/Potassium Clav 1 each PO BID 3 Days tablet 07/10/17 [Augmentin 875-125 Tablet] Meloxicam 7.5 mg PO DAILY 07/15/17 REVIEW OF SYSTEMS (limited due to baseline dementia) CONSTITUTIONAL: Absent: fever, chills, diaphoresis, generalized weakness, malaise, loss of appetite, weight change HEENT: Absent: rhinorrhea, nasal congestion, throat pain, throat swelling, difficulty swallowing, mouth swelling, ear pain, eye pain, visual changes CARDIOVASCULAR: Absent: chest pain, syncope, palpitations, irregular heart rate, lightheadedness , peripheral edema RESPIRATORY: Nonproductive cough, Absent: shortness of breath, dyspnea with exertion, orthopnea, wheezing, stridor , hemoptysis GASTROINTESTINAL: Absent: abdominal pain, abdominal distension, nausea, vomiting, diarrhea, constipation, melena, hematochezia GENITOURINARY: Absent: dysuria, frequency, urgency, hesitancy, hematuria, flank pain, genital pain MUSCULOSKELETAL: L wrist pain Absent: myalgia, arthralgia, joint swelling, back pain, neck pain SKIN: Absent: rash, itching, pallor HEMATOLOGIC/IMMUNOLOGIC: Absent: easy bleeding, easy bruising, lymphadenopathy, frequent infections ENDOCRINE: Absent: unexplained weight gain, unexplained weight loss, heat intolerance, cold intolerance NEUROLOGIC: Absent: headache, focal weakness or paresthesias, dizziness, unsteady gait, seizure, mental status changes, bladder or bowel incontinence PSYCHIATRIC: Absent: anxiety, depression, suicidal or homicidal ideation, hallucinations. PHYSICAL EXAMINATION Vital Signs - 24 hr 07/15/17 07/15/17 07/15/17 19:38 20:24 23:01 Temperature 97.2 F L 101.9 F H 100.5 F H Pulse Rate 120 H Respiratory 20 Rate Blood Pressure 120/71 O2 Sat by Pulse 96 96 Oximetry (%) GENERAL: Awake, alert, and A&Ox1, in no acute distress. HEAD: Normal with no signs of trauma. EYES: Pupils equal, round and reactive to light, extraocular movements intact, sclera anicteric, conjunctiva clear. No lid lag. EARS, NOSE, THROAT: Ears normal, nares patent, oropharynx clear without exudates. Moist mucous membranes. NECK: Normal range of motion, supple without lymphadenopathy, JVD, or masses. LUNGS: Decreased breath sounds at bases. No wheezes, and no crackles. No accessory muscle use. HEART: Tachycardiac, Regular rate and rhythm, normal S1 and S2 without murmur, rub or gallop. ABDOMEN: Soft, nontender, not distended, normoactive bowel sounds, no guarding, no rebound, no masses. No hepatomegaly or splenomegaly. MUSCULOSKELETAL: L wrist edema, tenderness to palpation and deformity w/ diffuse bruising on dorsal hand and forearm. 2-3 cm healed scab on lateral dorsal aspect of L hand, at proximal junction of 1st and 2nd digit. Decreased range of motion at L wrist. L mid-forearm deformity noted. No CVA tenderness. UPPER EXTREMITIES: Traumatic findings as noted above. Otherwise, 2+ pulses, warm , well-perfused. No cyanosis. No clubbing. No peripheral edema. LOWER EXTREMITIES: 2+ pulses, warm, well-perfused. No calf tenderness. Trace edema in ankles BL. NEUROLOGICAL: Cranial nerves II-XII intact. Normal speech. Gait not evaluated. PSYCHIATRIC: Cooperative. Good eye contact. Appropriate mood and affect. SKIN: BL diffuse forearm ecchymoses. Mild erythema and edema of dorsal aspect of L hand. Warm, dry, normal turgor. Normal capillary refill. Laboratory Results - last 24 hr CBC, BMP 07/15/17 20:40 07/15/17 20:40 07/15/17 07/15/17 07/15/17 20:20 20:36 20:40 WBC 15.2 H D RBC 4.87 Hgb 13.5 Hct 41.5 MCV 85.3 MCH 27.7 MCHC 32.5 RDW 14.8 Plt Count 503 H D MPV 7.8 Neutrophils % 78.3 Lymphocytes % 4.2 L D Monocytes % 17.2 H Eosinophils % 0.0 D Basophils % 0.3 PT with INR INR VBG pH 7.47 H POC VBG pCO2 31.9 L POC VBG pO2 50.1 H Mixed VBG HCO3 22.9 Sodium Potassium Chloride Carbon Dioxide Anion Gap BUN Creatinine Creat Clearance w eGFR Random Glucose Lactic Acid Calcium Total Bilirubin AST ALT Alkaline Phosphatase Creatine Kinase Troponin I C-Reactive Protein Cancelled Total Protein Albumin 07/15/17 07/15/17 07/15/17 20:40 20:40 20:43 WBC RBC Hgb Hct MCV MCH MCHC RDW Plt Count MPV Neutrophils % Lymphocytes % Monocytes % Eosinophils % Basophils % PT with INR 13.50 H INR 1.19 H VBG pH POC VBG pCO2 POC VBG pO2 Mixed VBG HCO3 Sodium 129 L Potassium 4.8 Chloride 94 L Carbon Dioxide 23 D Anion Gap 12 BUN 18 D Creatinine 0.7 D Creat Clearance w eGFR > 60 Random Glucose 112 H D Lactic Acid 2.9 H* Calcium 8.7 Total Bilirubin 0.6 AST 27 D ALT 61 D Alkaline Phosphatase 139 H D Creatine Kinase 23 L Troponin I < 0.02 C-Reactive Protein Total Protein 6.7 Albumin 3.0 L UA, blood culture pending CXR: Rotated film. L sided hilar bronchietasis. No rona consolidations, pleural effusions or pneumos. Hand XR (07/15): Official read pending Upper extremity CT: pending Prior Hand WR 06/30 - Slight subluxation of first MCP in thumb. Degenerative changes. No gross fracture or deformity noted. EKG: NSR, Tachy 140, 1st degree HB, LAD, QTC 403, one PVC notes; No evidence of ischemic changes; possible LAF block ASSESSMENT/PLAN: 89 yo man w/ pmh of HTN, Dementia (alzheimers), glaucoma who presents to ED from [facility] for fever and persistent L wrist pain and swelling. #Sepsis secondary to presumed cellulitis - WBC 15; fever to 101.9; lactic acid 2.9 on admission; CRP 6, ESR 39 - ID consulted - Fraga culture - Trend fever, WBC - IVFs - Vanc/clindamycin for cellulitis coverage; adjust upon ID recs - Monitor for hypotension - f/u CT L arm/hand results - Trend lactate - f/u UA #Hyponatremia - Hypovolemic vs. Euvolemic - Urine lytes - Daily BMPs, trend Na - NS IVF #HTN - No home HTN meds; confirm meds in AM - Monitor for HTN #GERD - c/w home zantac #Dementia - Alzheimers - Consider S+S if cannot confirm diet at NH #Glaucoma - c/w home glaucoma meds PPX Heparin SubQ FEN NS 75cc/hr Daily BMPs Regular diet; monitor for dysphagia Plan discussed with attending, Dr. Chito Anaya PGY1 Visit type - Emergency Visit Emergency Visit: Yes ED Registration Date: 07/15/17 Care time: The patient presented to the Emergency Department on the above date and was hospitalized for further evaluation of their emergent condition. - New Patient This patient is new to me today: Yes Date on this admission: 07/16/17 - Critical Care Critical Care patient: No
[2017-07-16] MEDS ORDERED: KETOROLAC TROMETHAMINE 30 MG/1 ML VIAL ONE (00:09)
[2017-07-16] MEDS ORDERED: SODIUM CHLORIDE 1,000 ML IV SCH (00:45)
[2017-07-16] MEDS: SODIUM CHLORIDE 1,000 ML IV SCH (00:56)
[2017-07-16 01:20] LABS: URINE APPEARANCE CLEAR; URINE BILIRUBIN NEGATIVE (NEGATIVE); URINE BLOOD 3+ (NEGATIVE); URINE COLOR YELLOW; URINE GLUCOSE (UA) NEGATIVE (NEGATIVE); URINE KETONE NEGATIVE (NEGATIVE); URINE LEUK ESTERASE NEGATIVE (NEGATIVE); URINE NITRITE NEGATIVE (NEGATIVE); URINE PROTEIN NEGATIVE (NEGATIVE); URINE UROBILINOGEN 4.0 E.U/dl mg/dL (0.2-1.0)
[2017-07-16 01:25] LABS: EPI CELLS RARE /HPF (FEW)
[2017-07-16] MEDS ORDERED: MAG HYDROX/AL HYDROX/SIMETH 30 ML UNIT-DOSE CUP PO PRN (02:00)
[2017-07-16] MEDS ORDERED: CLINDAMYCIN 600MG PREMIX IVPB 600 MG/50 ML BAG IVPB ONE (05:00)
[2017-07-16] MEDS: BRIMONIDINE TARTRATE 0.2% OPHTHALMIC 5 ML BOTTLE OU SCH ×3 (06:58→22:20)
[2017-07-16] MEDS: HEPARIN NA (PORCINE) 5,000 UNITS/ML 1ML VIAL SQ SCH ×3 (06:59→22:19)
[2017-07-16] MEDS: DORZOLAMIDE 2% HCL OPHTHALMIC SOLUTION 10 ML BOTTLE OU SCH ×3 (06:59→22:21)
[2017-07-16] MEDS ORDERED: PT OWN MED DRAWER 7, Y5N ONE ×2 (07:08→08:14)
[2017-07-16 08:36] LABS: HEMATOCRIT 36.7 % (35.4-49); HEMOGLOBIN 11.8 GM/dL (11.7-16.9); MCH 27.8 pg (25.7-33.7); MCHC 32.1 g/dl (32.0-35.9); MEAN CELL VOLUME 86.7 fl (80-96); MEAN PLT VOLUME 7.6 fl (7.5-11.1); PLATELET COUNT 408 K/MM3 (134-434); RBC 4.23 M/mm3 (4.00-5.60); RDW 14.8 % (11.9-15.9); WHITE BLOOD COUNT 11.3 K/mm3 (4.0-10.0)
[2017-07-16 08:43] LABS: INR 1.23 (0.82-1.09); PROTHROMBIN TIME (PATIENT) 13.9 SEC (9.98-11.88)
[2017-07-16 08:52] LABS: ALBUMIN 2.4 g/dl (3.4-5.0); ANION GAP 10 (8-16); BLOOD UREA NITROGEN 12 mg/dL (7-18); CALCIUM 7.4 mg/dL (8.5-10.1); CHLORIDE 101 mmol/L (98-107); CO2 21 mmol/L (21-32); GLUCOSE,RANDOM 97 mg/dL (74-106); POTASSIUM 4.3 mmol/L (3.5-5.1); SODIUM 132 mmol/L (136-145)
[2017-07-16 09:02] LABS: ALK PHOS 108 U/L (45-117); CREATININE 0.6 mg/dL (0.7-1.3); SGOT/AST 18 U/L (15-37); SGPT/ALT 50 U/L (12-78); TOT PROT 5.4 g/dl (6.4-8.2)
[2017-07-16] MEDS: RANITIDINE HCL 150 MG TABLET (FP) PO SCH ×2 (09:50→22:25)
[2017-07-16] MEDS: SENNOSIDES 8.6MG TABLET (FP) PO SCH (09:50)
[2017-07-16] MEDS: LIPASE/PROTEASE/AMYLASE 6,000 UNIT CAPSULE PO SCH ×3 (09:50→18:15)
[2017-07-16] MEDS: CHOLECALCIFEROL (VITAMIN D3) 1,000 UNIT TABLET (FP) PO SCH (09:51)
[2017-07-16] MEDS: MULTIVITAMINS THER W-MINERALS COMBO TABLET (FP) PO SCH (09:51)
[2017-07-16] MEDS: TIMOLOL 0.5% OPHTHALMIC SOL 5 ML BOTTLE OU SCH (09:52)
[2017-07-16] MEDS ORDERED: PATIENT'S OWN MEDICATION (NON-FORMULARY) (Aa/Hydrolyzed Collagen, Whey [Lps 15-30 Liquid] PO SCH (10:00)
[2017-07-16] MEDS ORDERED: SIMETHICONE 80 MG TAB.CHEW (FP) PO SCH (10:00)
[2017-07-16] MEDS ORDERED: metroNIDAZOLE 1% TOPICAL CREAM 60 GM/TUBE TP SCH (10:00)
--- NOTE | 2017-07-16 11:32 | CON.ID ---
Consult Consult Specialty:: infectious diseases Reason for Consultation:: left had swelling and erythema - History of Present Illness Chief Complaint: pain of the left wrist with swelling and erythema History of Present Illness: 89 yo man w/ pmh of HTN, Dementia (alzheimers), glaucoma admitted from [facility] for fever and persistent L wrist pain and swelling. According tot he patient he had a unwitnessed mechanical fall 06/30 and presumed FOOSH on L hand , Patient was also found to ahve PNA and was , treated with vanc/zosyn for suspected HCAP and discharged back to [place] on 07/10. 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 Cardio/Vascular: Yes: HTN, Hyperlipdemia Pulmonary: Yes: Other (non descript bronchitic condition.) Infectious Disease: Yes: Other (URI) Rheumatology: Yes: Other (gait dysf) - Past Surgical History Past Surgical History: Yes: None - Alcohol/Substance Use Hx Alcohol Use: No History of Substance Use: reports: None - Smoking History Smoking history: Never smoked Have you smoked in the past 12 months: No Aproximately how many cigarettes per day: 0 - Social History 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 History of Recent Travel: No Home Medications - Allergies Allergies/Adverse Reactions: Allergies Allergy/AdvReac Type Severity Reaction Status Date / Time No Known Allergies Allergy Verified 07/15/17 19:41 - Home Medications Home Medications: Ambulatory Orders Aa/Hydrolyzed Collagen, Whey [Lps 15-30 Liquid] 30 ml PO DAILY 06/30/17 Acetaminophen [Tylenol] 650 mg PO QID 06/30/17 Bimatoprost [Lumigan] 1 drop OU DAILY 06/30/17 Brimonidine Tartrate [Alphagan 0.2% -] 1 drop TID 06/30/17 Cholecalciferol (Vitamin D3) [Vitamin D3] 1,000 unit PO DAILY 06/30/17 Dorzolamide HCl [Trusopt 2% -] 1 drop TID 06/30/17 Guaifenesin [Expectorant] 200 mg PO BID 06/30/17 Lipase/Protease/Amylase [Creon Dr 12,000 Units Capsule] 2 tab PO TID 06/30/17 Mag Hydrox/Al Hydrox/Simeth [Mylanta Oral Suspension -] 30 ml PO Q6H 06/30/17 Metronidazole 1% Cream [Metrocream 1% Cream -] 1 applic TP BID 06/30/17 Mirtazapine [Remeron -] 15 mg PO DAILY 06/30/17 Ranitidine HCl [Zantac 75] 75 mg PO BID 06/30/17 Sennosides [Senna] 2 tab PO DAILY 06/30/17 Simethicone [Gas Relief 80] 80 mg PO QID 06/30/17 Timolol 0.5% [Timoptic 0.5%] 1 drop OU DAILY 06/30/17 Vit A/Vit C/Vit E/Zinc/Copper [Preservision Areds Tablet] 1 each PO BID Meloxicam 7.5 mg PO DAILY 07/15/17 Review of Systems - Review of Systems Constitutional: reports: Fever Eyes: reports: No Symptoms HENT: reports: No Symptoms Neck: reports: No Symptoms Cardiovascular: reports: No Symptoms Respiratory: reports: No Symptoms Gastrointestinal: reports: No Symptoms Genitourinary: reports: No Symptoms Breasts: reports: No Symptoms Reported Musculoskeletal: reports: Joint Swelling, Muscle Pain Integumentary: reports: Erythema Neurological: reports: No Symptoms Endocrine: reports: No Symptoms Hematology/Lymphatic: reports: No Symptoms Psychiatric: reports: No Symptoms Physical Exam Vital Signs: Vital Signs Temperature 98.6 F 07/16/17 06:00 Pulse Rate 118 H 07/16/17 06:00 Respiratory Rate 20 07/16/17 06:00 Blood Pressure 130/84 07/16/17 06:00 O2 Sat by Pulse Oximetry (%) 97 07/16/17 03:15 Constitutional: Yes: Calm, Moderate Distress Eyes: Yes: Conjunctiva Clear Cardiovascular: Yes: Regular Rate and Rhythm, S1, S2 Respiratory: Yes: Regular, CTA Bilaterally Gastrointestinal: Yes: Normal Bowel Sounds, Soft Musculoskeletal: Yes: WNL Extremities: Yes: Other Integumentary: Yes: Erythema, Other Wound/Incision: Yes: Other Neurological: Yes: Alert, Oriented Psychiatric: Yes: Alert, Oriented Labs: CBC, BMP 07/16/17 07:00 07/16/17 07:00 Imaging - Results Chest X-ray: Report Reviewed, Image Reviewed X-ray: Image Reviewed (report awaited) Assessment/Plan 89 yo man w/ pmh of HTN, Dementia (alzheimers), glaucoma who presents to ED from [facility] for fever and persistent L wrist pain and swelling. according to the patient this has developed because of fall also i looked at the xray i feel that he might have a fracture small--await for the official result #Sepsis secondary to presumed cellulitis #Hyponatremia #HTN #GERD #Dementia #Glaucoma lactic acidosis though the patient spiked fever and with leukocytosis and lactic acidosis i have low suspicion of infection but because of his condition and swelling of the hand and fever i am going to start him plan will start patient on ceftriaxone rest continue current mgmt await for all the results await for xray report
[2017-07-16] MEDS: CEFTRIAXONE 1 G/50 ML PREMIX 50 ML IVPB SCH (12:01)
[2017-07-16 12:11] LABS: ANISOCYTOSIS 0; MACROCYTOSIS 0; PLATELET ESTIMATE NORMAL
--- NOTE | 2017-07-16 12:23 | EKG ---
Test Reason : Blood Pressure : / mmHG Vent. Rate : 140 BPM Atrial Rate : 140 BPM P-R Int : 148 ms QRS Dur : 074 ms QT Int : 264 ms P-R-T Axes : 038 -50 065 degrees QTc Int : 403 ms SINUS TACHYCARDIA LEFT ANTERIOR FASCICULAR BLOCK POSSIBLE INFERIOR INFARCT , AGE UNDETERMINED ABNORMAL ECG WHEN COMPARED WITH ECG OF 30-JUN-2017 11:11, VENT. RATE HAS INCREASED Confirmed by BELKYS BEARD, JANESSA ([id number]) on 07/16/2017 12:22:53 PM Referred By: Confirmed By:JANESSA RIZVI MD
[2017-07-16 12:42] LABS: OSMOLALITY,SERUM 276 mosm/kg (278-305)
--- NOTE | 2017-07-16 13:08 | PN ---
Progress Note, Physician Chief Complaint: Mr Alba says he feels fine, but when asked he complains of L wrist pain. Denies cp, sob, n/v. - Current Medication List Current Medications: Active Medications Acetaminophen (Tylenol -) 650 mg PO Q4H PRN PRN Reason: FEVER OR PAIN Al Hydroxide/Mg Hydroxide (Mylanta Oral Suspension -) 30 ml PO Q6H PRN PRN Reason: INDIGESTION Brimonidine Tartrate (Alphagan 0.2% -) 1 drop OU TID [facility] Last Admin: 07/16/17 06:58 Dose: 1 drop Cholecalciferol (Vitamin D3 -) 1,000 unit PO DAILY [facility] Last Admin: 07/16/17 09:51 Dose: 1,000 unit Dorzolamide HCl (Trusopt 2%) 1 drop OU TID [facility] Last Admin: 07/16/17 06:59 Dose: 1 drop Heparin Sodium (Porcine) (Heparin -) 5,000 unit SQ TID [facility] Last Admin: 07/16/17 06:59 Dose: 5,000 unit Sodium Chloride (Normal Saline -) 1,000 mls @ 50 mls/hr IV ASDIR [facility] Last Admin: 07/16/17 00:56 Dose: 50 mls/hr CEFTRIAXONE 1 G/50 ML PREMIX (Ceftriaxone 1 Gm-D5w Bag) 50 mls @ 100 mls/hr IVPB DAILY [facility] Last Admin: 07/16/17 12:01 Dose: 100 mls/hr Latanoprost (Xalatan 0.005% Eye Drops -) 1 drop OU HS [facility] Mirtazapine (Remeron -) 15 mg PO HS [facility] Multivitamins/Minerals (Theragran-M) 1 each PO DAILY [facility] Last Admin: 07/16/17 09:51 Dose: 1 each Pancrelipase (Creon Dr 6,000 Units Capsule) 4 cap PO TIDCM [facility] Last Admin: 07/16/17 09:50 Dose: 4 cap Ranitidine HCl (Zantac -) 75 mg PO BID [facility] Last Admin: 07/16/17 09:50 Dose: 75 mg Senna (Senna -) 2 tab PO DAILY [facility] Last Admin: 07/16/17 09:50 Dose: 2 tab Timolol Maleate (Timoptic 0.5%) 1 drop OU DAILY [facility] Last Admin: 07/16/17 09:52 Dose: 1 drop - Objective Vital Signs: Vital Signs Temperature 37.0 C 07/16/17 06:00 Pulse Rate 118 H 07/16/17 06:00 Respiratory Rate 20 07/16/17 06:00 Blood Pressure 130/84 07/16/17 06:00 O2 Sat by Pulse Oximetry (%) 97 07/16/17 03:15 Constitutional: Yes: Well Nourished, No Distress, Calm Cardiovascular: Yes: Regular Rate and Rhythm. No: Gallop, Murmur, Rub Respiratory: Yes: Regular, CTA Bilaterally. No: Rales, Rhonchi, Wheezes Gastrointestinal: Yes: Normal Bowel Sounds, Soft. No: Distention, Tenderness Extremities: Yes: Erythema (LUE) Edema: No Labs: CBC, BMP 07/16/17 07:00 07/16/17 07:00 INR, PTT INR 1.23 (0.82-1.09) H 07/16/17 07:00 Problem List - Problems (1) Sepsis Assessment/Plan: -unclear source and patient appears improved -case d/w ID -continue rocephin -follow up cultures -low suspicion for cellulitis, will check uric acid -monitor -continue IVF Code(s): A41.9 - SEPSIS, UNSPECIFIED ORGANISM (2) Dementia Assessment/Plan: -stable -continue home regimen Code(s): F03.90 - UNSPECIFIED DEMENTIA WITHOUT BEHAVIORAL DISTURBANCE (3) Hypertension Assessment/Plan: -well controlled -continue current regimen Code(s): I10 - ESSENTIAL (PRIMARY) HYPERTENSION Qualifiers: Hypertension type: essential hypertension Qualified Code(s): I10 - Essential (primary) hypertension (4) Weakness Assessment/Plan: -PT consult Code(s): R53.1 - WEAKNESS (5) Glaucoma Assessment/Plan: -continue eye drops Code(s): H40.9 - UNSPECIFIED GLAUCOMA
--- NOTE | 2017-07-16 15:08 | CONSULT ---
Consult Consult Specialty:: Nephrology Reason for Consultation:: hyponatremia - History of Present Illness Chief Complaint: fever and left wrist pain s/p fall History of Present Illness: Pt is an 89 year old male with pmhx of dementia, HTN, and glaucoma who presents to the ER after a mechanical fall in the [place]. He also had fever and left wrist pain. He was recently treated for a PNA. He was found to have hyponatremia and I was called to evaluate him. He denies decreased PO intake. He says she feels better today. He denies dizziness or headache. He has had abnormal sodium on old labs from medical records. 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 Travel: No Home Medications - Allergies Allergies/Adverse Reactions: Allergies Allergy/AdvReac Type Severity Reaction Status Date / Time No Known Allergies Allergy Verified 07/15/17 19:41 - Home Medications Home Medications: Ambulatory Orders Aa/Hydrolyzed Collagen, Whey [Lps 15-30 Liquid] 30 ml PO DAILY 06/30/17 Acetaminophen [Tylenol] 650 mg PO QID 06/30/17 Bimatoprost [Lumigan] 1 drop OU DAILY 06/30/17 Brimonidine Tartrate [Alphagan 0.2% -] 1 drop TID 06/30/17 Cholecalciferol (Vitamin D3) [Vitamin D3] 1,000 unit PO DAILY 06/30/17 Dorzolamide HCl [Trusopt 2% -] 1 drop TID 06/30/17 Guaifenesin [Expectorant] 200 mg PO BID 06/30/17 Lipase/Protease/Amylase [Creon Dr 12,000 Units Capsule] 2 tab PO TID 06/30/17 Mag Hydrox/Al Hydrox/Simeth [Mylanta Oral Suspension -] 30 ml PO Q6H 06/30/17 Metronidazole 1% Cream [Metrocream 1% Cream -] 1 applic TP BID 06/30/17 Mirtazapine [Remeron -] 15 mg PO DAILY 06/30/17 Ranitidine HCl [Zantac 75] 75 mg PO BID 06/30/17 Sennosides [Senna] 2 tab PO DAILY 06/30/17 Simethicone [Gas Relief 80] 80 mg PO QID 06/30/17 Timolol 0.5% [Timoptic 0.5%] 1 drop OU DAILY 06/30/17 Vit A/Vit C/Vit E/Zinc/Copper [Preservision Areds Tablet] 1 each PO BID Meloxicam 7.5 mg PO DAILY 07/15/17 Family Disease History - Family Disease History Family History: Denies Review of Systems - Review of Systems Constitutional: reports: Fever, Malaise Eyes: reports: No Symptoms HENT: reports: No Symptoms Neck: reports: No Symptoms Cardiovascular: reports: No Symptoms Respiratory: reports: No Symptoms Gastrointestinal: reports: No Symptoms Genitourinary: reports: No Symptoms Musculoskeletal: reports: Other (hand pain) Integumentary: reports: No Symptoms Neurological: reports: No Symptoms Endocrine: reports: No Symptoms Hematology/Lymphatic: reports: No Symptoms Psychiatric: reports: No Symptoms Physical Exam Vital Signs: Vital Signs Temperature 98.4 F 07/16/17 10:00 Pulse Rate 106 H 07/16/17 10:00 Respiratory Rate 16 07/16/17 10:00 Blood Pressure 137/74 07/16/17 10:00 O2 Sat by Pulse Oximetry (%) 97 07/16/17 09:00 Constitutional: Yes: Calm Eyes: Yes: Conjunctiva Clear HENT: Yes: Atraumatic Cardiovascular: Yes: S1, S2 Respiratory: Yes: CTA Bilaterally Gastrointestinal: Yes: Soft Renal/: Yes: WNL Musculoskeletal: Yes: Other (left wrist swelling and skin breakdown) Edema: Yes Edema: LLE: Trace, RLE: Trace Neurological: Yes: Oriented Psychiatric: Yes: Oriented Labs: CBC, BMP 07/16/17 07:00 07/16/17 07:00 Laboratory Tests 07/15/17 07/15/17 07/15/17 20:20 20:40 20:40 WBC 15.2 H D Monocytes % (Manual) ESR 39 H Sodium 129 L Potassium 4.8 Chloride 94 L Random Glucose 112 H D Serum Osmolality Lactic Acid Urine Osmolality Ur Random Sodium 07/15/17 07/16/17 07/16/17 20:43 01:40 01:40 WBC Monocytes % (Manual) ESR Sodium Potassium Chloride Random Glucose Serum Osmolality Lactic Acid 2.9 H* Urine Osmolality 489 Ur Random Sodium 8 07/16/17 07/16/17 07/16/17 07:00 07:00 07:00 WBC 11.3 H Monocytes % (Manual) 19 H* ESR Sodium 132 L Potassium 4.3 Chloride Random Glucose Serum Osmolality 276 L Lactic Acid 2.6 H* Urine Osmolality Ur Random Sodium Imaging - Results Chest X-ray: Report Reviewed Problem List - Problems (1) Hyponatremia Code(s): E87.1 - HYPO-OSMOLALITY AND HYPONATREMIA (2) Sepsis Code(s): A41.9 - SEPSIS, UNSPECIFIED ORGANISM (3) Soft tissue infection Code(s): L08.9 - LOCAL INFECTION OF THE SKIN AND SUBCUTANEOUS TISSUE, UNSP (4) Dementia Code(s): F03.90 - UNSPECIFIED DEMENTIA WITHOUT BEHAVIORAL DISTURBANCE (5) Hypertension Code(s): I10 - ESSENTIAL (PRIMARY) HYPERTENSION Qualifiers: Hypertension type: essential hypertension Qualified Code(s): I10 - Essential (primary) hypertension Assessment/Plan Current Medications Generic Name Dose Route Start Last Admin Trade Name Freq PRN Reason Stop Dose Admin Acetaminophen 650 mg 07/16/17 00:44 Tylenol - PO Q4H PRN FEVER OR PAIN Al Hydroxide/Mg Hydroxide 30 ml 07/16/17 02:00 Mylanta Oral Suspension - PO Q6H PRN INDIGESTION Brimonidine Tartrate 1 drop 07/16/17 06:00 07/16/17 06:58 Alphagan 0.2% - OU 1 drop TID [facility] Administration Cholecalciferol 1,000 unit 07/16/17 10:00 07/16/17 09:51 Vitamin D3 - PO 1,000 unit DAILY [facility] Administration Dorzolamide HCl 1 drop 07/16/17 06:00 07/16/17 06:59 Trusopt 2% OU 1 drop TID [facility] Administration Heparin Sodium (Porcine) 5,000 unit 07/16/17 06:00 07/16/17 06:59 Heparin - SQ 5,000 unit TID [facility] Administration Sodium Chloride 1,000 mls @ 50 mls/hr 07/16/17 01:53 07/16/17 00:56 Normal Saline - IV 50 mls/hr ASDIR [facility] Administration CEFTRIAXONE 1 G/50 ML PREMIX 50 mls @ 100 mls/hr 07/16/17 11:45 07/16/17 12: 01 Ceftriaxone 1 Gm-D5w Bag IVPB 100 mls/hr DAILY [facility] Administration Latanoprost 1 drop 07/16/17 22:00 Xalatan 0.005% Eye Drops - OU HS [facility] Mirtazapine 15 mg 07/16/17 22:00 Remeron - PO HS [facility] Multivitamins/Minerals 1 each 07/16/17 10:00 07/16/17 09:51 Theragran-M PO 1 each DAILY [facility] Administration Pancrelipase 4 cap 07/16/17 08:00 07/16/17 13:21 Creon 6,000 Units Capsule PO 4 cap TIDCM [facility] Administration Ranitidine HCl 75 mg 07/16/17 10:00 07/16/17 09:50 Zantac - PO 75 mg BID [facility] Administration Senna 2 tab 07/16/17 10:00 07/16/17 09:50 Senna - PO 2 tab DAILY [facility] Administration Timolol Maleate 1 drop 07/16/17 10:00 07/16/17 09:52 Timoptic 0.5% OU 1 drop DAILY [facility] Administration Impression 1. hyponatremia 2. s/p fall 3. sepsis 4. cellulitis 5. gerd 6. dementia 7. elevated monocytes Plan - sodium is improved - likely etiology is dehydration as urine sodium is low - repeat labs in am - cont with fluids - follow cultures - ID eval - will follow Dr Trujillo
[2017-07-16] MEDS: ACETAMINOPHEN 325 MG TABLET (FP) PO PRN (15:09)
[2017-07-16] MEDS: MIRTAZAPINE 15 MG TABLET (FP) PO SCH (22:25)
[2017-07-16] MEDS: LATANOPROST 0.005% OPHTH SOLN 2.5ML BOTTLE OU SCH (22:25)
[2017-07-17] MEDS: NYSTATIN 100,000 UNIT/GM TOPICAL CREAM 15 GM TUBE TP SCH ×4 (01:03→22:38)
[2017-07-17] MEDS ORDERED: PT OWN MED DRAWER 7, Y5N ONE ×4 (06:08→20:27)
[2017-07-17] MEDS: SODIUM CHLORIDE 1,000 ML IV SCH ×2 (07:09→11:00)
[2017-07-17] MEDS: DORZOLAMIDE 2% HCL OPHTHALMIC SOLUTION 10 ML BOTTLE OU SCH ×3 (07:11→22:36)
[2017-07-17] MEDS: BRIMONIDINE TARTRATE 0.2% OPHTHALMIC 5 ML BOTTLE OU SCH ×3 (07:12→22:35)
[2017-07-17] MEDS: HEPARIN NA (PORCINE) 5,000 UNITS/ML 1ML VIAL SQ SCH ×3 (07:12→22:35)
[2017-07-17 07:36] LABS: EOS % 1.8 % (0-4.5); HEMATOCRIT 36.2 % (35.4-49); HEMOGLOBIN 11.7 GM/dL (11.7-16.9); LYMPH % 10.3 % (8-40); MCH 27.9 pg (25.7-33.7); MCHC 32.3 g/dl (32.0-35.9); MEAN CELL VOLUME 86.4 fl (80-96); MEAN PLT VOLUME 7.5 fl (7.5-11.1); MONO % 19.9 % (3.8-10.2); PLATELET COUNT 376 K/MM3 (134-434); RBC 4.19 M/mm3 (4.00-5.60); RDW 14.8 % (11.9-15.9); WHITE BLOOD COUNT 8.9 K/mm3 (4.0-10.0)
[2017-07-17 07:50] LABS: ANION GAP 12 (8-16); BLOOD UREA NITROGEN 8 mg/dL (7-18); CALCIUM 7.6 mg/dL (8.5-10.1); CHLORIDE 101 mmol/L (98-107); CO2 20 mmol/L (21-32); CREATININE 0.5 mg/dL (0.7-1.3); GLUCOSE,RANDOM 93 mg/dL (74-106); MAGNESIUM 2.1 mg/dL (1.8-2.4); PHOSPHOROUS 2.2 mg/dL (2.5-4.9); POTASSIUM 3.9 mmol/L (3.5-5.1); SODIUM 133 mmol/L (136-145)
[2017-07-17] MEDS: LIPASE/PROTEASE/AMYLASE 6,000 UNIT CAPSULE PO SCH ×3 (08:34→17:50)
[2017-07-17] MEDS: CEFTRIAXONE 1 G/50 ML PREMIX 50 ML IVPB SCH (10:55)
[2017-07-17] MEDS: ACETAMINOPHEN 325 MG TABLET (FP) PO PRN (10:57)
[2017-07-17] MEDS: RANITIDINE HCL 150 MG TABLET (FP) PO SCH ×2 (10:58→22:34)
[2017-07-17] MEDS: MULTIVITAMINS THER W-MINERALS COMBO TABLET (FP) PO SCH (10:59)
[2017-07-17] MEDS: TIMOLOL 0.5% OPHTHALMIC SOL 5 ML BOTTLE OU SCH (10:59)
[2017-07-17] MEDS: SENNOSIDES 8.6MG TABLET (FP) PO SCH (10:59)
[2017-07-17] MEDS: CHOLECALCIFEROL (VITAMIN D3) 1,000 UNIT TABLET (FP) PO SCH (10:59)
--- NOTE | 2017-07-17 11:09 | PN ---
Progress Note, Physician Chief Complaint: Mr Alba says he feels fine but still with L wrist pain. No cp, sob, n/v. - Current Medication List Current Medications: Active Medications Acetaminophen (Tylenol -) 650 mg PO Q4H PRN PRN Reason: FEVER OR PAIN Last Admin: 07/17/17 10:57 Dose: 650 mg Al Hydroxide/Mg Hydroxide (Mylanta Oral Suspension -) 30 ml PO Q6H PRN PRN Reason: INDIGESTION Brimonidine Tartrate (Alphagan 0.2% -) 1 drop OU TID [facility] Last Admin: 07/17/17 07:12 Dose: 1 drop Cholecalciferol (Vitamin D3 -) 1,000 unit PO DAILY [facility] Last Admin: 07/17/17 10:59 Dose: 1,000 unit Dorzolamide HCl (Trusopt 2%) 1 drop OU TID [facility] Last Admin: 07/17/17 07:11 Dose: 1 drop Heparin Sodium (Porcine) (Heparin -) 5,000 unit SQ TID [facility] Last Admin: 07/17/17 07:12 Dose: 5,000 unit Sodium Chloride (Normal Saline -) 1,000 mls @ 50 mls/hr IV ASDIR [facility] Last Admin: 07/17/17 11:00 Dose: 50 mls/hr CEFTRIAXONE 1 G/50 ML PREMIX (Ceftriaxone 1 Gm-D5w Bag) 50 mls @ 100 mls/hr IVPB DAILY [facility] Last Admin: 07/17/17 10:55 Dose: 100 mls/hr Latanoprost (Xalatan 0.005% Eye Drops -) 1 drop OU HS [facility] Last Admin: 07/16/17 22:25 Dose: 1 drop Mirtazapine (Remeron -) 15 mg PO HS [facility] Last Admin: 07/16/17 22:25 Dose: 15 mg Multivitamins/Minerals (Theragran-M) 1 each PO DAILY [facility] Last Admin: 07/17/17 10:59 Dose: 1 each Nystatin (Mycostatin Cream -) 1 applic TP TID [facility] Last Admin: 07/17/17 07:10 Dose: 1 applic Pancrelipase (Creon Dr 6,000 Units Capsule) 4 cap PO TIDCM [facility] Last Admin: 07/17/17 08:34 Dose: 4 cap Ranitidine HCl (Zantac -) 75 mg PO BID [facility] Last Admin: 07/17/17 10:58 Dose: 75 mg Senna (Senna -) 2 tab PO DAILY [facility] Last Admin: 07/17/17 10:59 Dose: 2 tab Timolol Maleate (Timoptic 0.5%) 1 drop OU DAILY [facility] Last Admin: 07/17/17 10:59 Dose: 1 drop - Objective Vital Signs: Vital Signs Temperature 36.7 C 07/17/17 07:38 Pulse Rate 112 H 07/17/17 07:38 Respiratory Rate 20 07/17/17 07:38 Blood Pressure 148/75 07/17/17 07:38 O2 Sat by Pulse Oximetry (%) 98 07/16/17 21:00 Constitutional: Yes: Well Nourished, No Distress, Calm Cardiovascular: Yes: Regular Rate and Rhythm. No: Gallop, Murmur, Rub Respiratory: Yes: Regular, CTA Bilaterally. No: Rales, Rhonchi, Wheezes Gastrointestinal: Yes: Normal Bowel Sounds, Soft. No: Distention, Tenderness Extremities: Yes: Erythema Edema: No Labs: CBC, BMP 07/17/17 06:00 07/17/17 06:00 INR, PTT INR 1.23 (0.82-1.09) H 07/16/17 07:00 Problem List - Problems (1) Sepsis Code(s): A41.9 - SEPSIS, UNSPECIFIED ORGANISM (2) Dementia Code(s): F03.90 - UNSPECIFIED DEMENTIA WITHOUT BEHAVIORAL DISTURBANCE (3) Hypertension Code(s): I10 - ESSENTIAL (PRIMARY) HYPERTENSION Qualifiers: Hypertension type: essential hypertension Qualified Code(s): I10 - Essential (primary) hypertension (4) Weakness Code(s): R53.1 - WEAKNESS (5) Glaucoma Code(s): H40.9 - UNSPECIFIED GLAUCOMA Assessment/Plan (1) Sepsis Assessment/Plan: -source remains unclear -continue rocephin -uric acid negative -follow up CT scan LUE Code(s): A41.9 - SEPSIS, UNSPECIFIED ORGANISM (2) Dementia Assessment/Plan: -stable -continue home regimen Code(s): F03.90 - UNSPECIFIED DEMENTIA WITHOUT BEHAVIORAL DISTURBANCE (3) Hypertension Assessment/Plan: -well controlled -continue current regimen Code(s): I10 - ESSENTIAL (PRIMARY) HYPERTENSION Qualifiers: Hypertension type: essential hypertension Qualified Code(s): I10 - Essential (primary) hypertension (4) Weakness Assessment/Plan: -PT consulted Code(s): R53.1 - WEAKNESS (5) Glaucoma Assessment/Plan: -continue eye drops Code(s): H40.9 - UNSPECIFIED GLAUCOMA
--- NOTE | 2017-07-17 13:49 | PN ---
Progress Note, Physician History of Present Illness: stbale wrist pain still present micro hematuria patient going to be evaluated by urology for ct scan of hand - Current Medication List Current Medications: Active Medications Acetaminophen (Tylenol -) 650 mg PO Q4H PRN PRN Reason: FEVER OR PAIN Last Admin: 07/17/17 10:57 Dose: 650 mg Al Hydroxide/Mg Hydroxide (Mylanta Oral Suspension -) 30 ml PO Q6H PRN PRN Reason: INDIGESTION Brimonidine Tartrate (Alphagan 0.2% -) 1 drop OU TID [facility] Last Admin: 07/17/17 07:12 Dose: 1 drop Cholecalciferol (Vitamin D3 -) 1,000 unit PO DAILY [facility] Last Admin: 07/17/17 10:59 Dose: 1,000 unit Dorzolamide HCl (Trusopt 2%) 1 drop OU TID [facility] Last Admin: 07/17/17 07:11 Dose: 1 drop Heparin Sodium (Porcine) (Heparin -) 5,000 unit SQ TID [facility] Last Admin: 07/17/17 07:12 Dose: 5,000 unit Sodium Chloride (Normal Saline -) 1,000 mls @ 50 mls/hr IV ASDIR [facility] Last Admin: 07/17/17 11:00 Dose: 50 mls/hr CEFTRIAXONE 1 G/50 ML PREMIX (Ceftriaxone 1 Gm-D5w Bag) 50 mls @ 100 mls/hr IVPB DAILY [facility] Last Admin: 07/17/17 10:55 Dose: 100 mls/hr Latanoprost (Xalatan 0.005% Eye Drops -) 1 drop OU HS [facility] Last Admin: 07/16/17 22:25 Dose: 1 drop Mirtazapine (Remeron -) 15 mg PO HS [facility] Last Admin: 07/16/17 22:25 Dose: 15 mg Multivitamins/Minerals (Theragran-M) 1 each PO DAILY [facility] Last Admin: 07/17/17 10:59 Dose: 1 each Nystatin (Mycostatin Cream -) 1 applic TP TID [facility] Last Admin: 07/17/17 07:10 Dose: 1 applic Pancrelipase (Creon Dr 6,000 Units Capsule) 4 cap PO TIDCM [facility] Last Admin: 07/17/17 11:20 Dose: 4 cap Ranitidine HCl (Zantac -) 75 mg PO BID [facility] Last Admin: 07/17/17 10:58 Dose: 75 mg Senna (Senna -) 2 tab PO DAILY [facility] Last Admin: 07/17/17 10:59 Dose: 2 tab Timolol Maleate (Timoptic 0.5%) 1 drop OU DAILY [facility] Last Admin: 07/17/17 10:59 Dose: 1 drop - Objective Vital Signs: Vital Signs Temperature 98.1 F 07/17/17 07:38 Pulse Rate 112 H 07/17/17 07:38 Respiratory Rate 20 07/17/17 07:38 Blood Pressure 148/75 07/17/17 07:38 O2 Sat by Pulse Oximetry (%) 98 07/16/17 21:00 Constitutional: Yes: Calm, Mild Distress Cardiovascular: Yes: Regular Rate and Rhythm Respiratory: Yes: Regular, CTA Bilaterally Gastrointestinal: Yes: Normal Bowel Sounds, Soft Musculoskeletal: Yes: Other Extremities: Yes: Other Integumentary: Yes: Erythema, Other Neurological: Yes: Alert, Oriented Psychiatric: Yes: Alert Labs: CBC, BMP 07/17/17 06:00 07/17/17 06:00 INR, PTT INR 1.23 (0.82-1.09) H 07/16/17 07:00 Assessment/Plan #Sepsis secondary to presumed cellulitis #Hyponatremia #HTN #GERD #Dementia #Glaucoma lactic acidosis plan await for ct scan of the hand continue current mgmt await for urology to see the patient await ct scan results
--- NOTE | 2017-07-17 15:49 | PN ---
Progress Note, Physician History of Present Illness: Pt seen and examined at bedside. He is awake and alert. He went for the ct scan of his hand. - Current Medication List Current Medications: Active Medications Acetaminophen (Tylenol -) 650 mg PO Q4H PRN PRN Reason: FEVER OR PAIN Last Admin: 07/17/17 10:57 Dose: 650 mg Al Hydroxide/Mg Hydroxide (Mylanta Oral Suspension -) 30 ml PO Q6H PRN PRN Reason: INDIGESTION Brimonidine Tartrate (Alphagan 0.2% -) 1 drop OU TID [facility] Last Admin: 07/17/17 15:22 Dose: 1 drop Cholecalciferol (Vitamin D3 -) 1,000 unit PO DAILY [facility] Last Admin: 07/17/17 10:59 Dose: 1,000 unit Dorzolamide HCl (Trusopt 2%) 1 drop OU TID [facility] Last Admin: 07/17/17 15:24 Dose: 1 drop Heparin Sodium (Porcine) (Heparin -) 5,000 unit SQ TID [facility] Last Admin: 07/17/17 15:22 Dose: 5,000 unit Sodium Chloride (Normal Saline -) 1,000 mls @ 50 mls/hr IV ASDIR [facility] Last Admin: 07/17/17 11:00 Dose: 50 mls/hr CEFTRIAXONE 1 G/50 ML PREMIX (Ceftriaxone 1 Gm-D5w Bag) 50 mls @ 100 mls/hr IVPB DAILY [facility] Last Admin: 07/17/17 10:55 Dose: 100 mls/hr Latanoprost (Xalatan 0.005% Eye Drops -) 1 drop OU HS [facility] Last Admin: 07/16/17 22:25 Dose: 1 drop Mirtazapine (Remeron -) 15 mg PO HS [facility] Last Admin: 07/16/17 22:25 Dose: 15 mg Multivitamins/Minerals (Theragran-M) 1 each PO DAILY [facility] Last Admin: 07/17/17 10:59 Dose: 1 each Nystatin (Mycostatin Cream -) 1 applic TP TID [facility] Last Admin: 07/17/17 15:25 Dose: 1 applic Pancrelipase (Creon Dr 6,000 Units Capsule) 4 cap PO TIDCM [facility] Last Admin: 07/17/17 11:20 Dose: 4 cap Ranitidine HCl (Zantac -) 75 mg PO BID [facility] Last Admin: 07/17/17 10:58 Dose: 75 mg Senna (Senna -) 2 tab PO DAILY [facility] Last Admin: 07/17/17 10:59 Dose: 2 tab Timolol Maleate (Timoptic 0.5%) 1 drop OU DAILY [facility] Last Admin: 07/17/17 10:59 Dose: 1 drop - Objective Vital Signs: Vital Signs Temperature 98.2 F 07/17/17 15:19 Pulse Rate 78 07/17/17 15:19 Respiratory Rate 18 07/17/17 15:19 Blood Pressure 138/60 07/17/17 15:19 O2 Sat by Pulse Oximetry (%) 98 07/16/17 21:00 Constitutional: Yes: Calm Eyes: Yes: Conjunctiva Clear HENT: Yes: Atraumatic Neck: Yes: Supple Cardiovascular: Yes: S1, S2 Respiratory: Yes: CTA Bilaterally Gastrointestinal: Yes: Normal Bowel Sounds, Soft Genitourinary: Yes: WNL Edema: LLE: Trace, RLE: Trace Neurological: Yes: Oriented Psychiatric: Yes: Oriented Labs: CBC, BMP 07/17/17 06:00 07/17/17 06:00 INR, PTT INR 1.23 (0.82-1.09) H 07/16/17 07:00 Problem List - Problems (1) Hyponatremia Code(s): E87.1 - HYPO-OSMOLALITY AND HYPONATREMIA (2) Sepsis Code(s): A41.9 - SEPSIS, UNSPECIFIED ORGANISM (3) Soft tissue infection Code(s): L08.9 - LOCAL INFECTION OF THE SKIN AND SUBCUTANEOUS TISSUE, UNSP (4) Dementia Code(s): F03.90 - UNSPECIFIED DEMENTIA WITHOUT BEHAVIORAL DISTURBANCE (5) Hypertension Code(s): I10 - ESSENTIAL (PRIMARY) HYPERTENSION Qualifiers: Hypertension type: essential hypertension Qualified Code(s): I10 - Essential (primary) hypertension Assessment/Plan Current Medications Generic Name Dose Route Start Last Admin Trade Name Freq PRN Reason Stop Dose Admin Acetaminophen 650 mg 07/16/17 00:44 07/17/17 10:57 Tylenol - PO 650 mg Q4H PRN Administration FEVER OR PAIN Al Hydroxide/Mg Hydroxide 30 ml 07/16/17 02:00 Mylanta Oral Suspension - PO Q6H PRN INDIGESTION Brimonidine Tartrate 1 drop 07/16/17 06:00 07/17/17 15:22 Alphagan 0.2% - OU 1 drop TID [facility] Administration Cholecalciferol 1,000 unit 07/16/17 10:00 07/17/17 10:59 Vitamin D3 - PO 1,000 unit DAILY [facility] Administration Dorzolamide HCl 1 drop 07/16/17 06:00 07/17/17 15:24 Trusopt 2% OU 1 drop TID [facility] Administration Heparin Sodium (Porcine) 5,000 unit 07/16/17 06:00 07/17/17 15:22 Heparin - SQ 5,000 unit TID [facility] Administration Sodium Chloride 1,000 mls @ 50 mls/hr 07/16/17 01:53 07/17/17 11:00 Normal Saline - IV 50 mls/hr ASDIR [facility] Administration CEFTRIAXONE 1 G/50 ML PREMIX 50 mls @ 100 mls/hr 07/16/17 11:45 07/17/17 10: 55 Ceftriaxone 1 Gm-D5w Bag IVPB 100 mls/hr DAILY [facility] Administration Latanoprost 1 drop 07/16/17 22:00 07/16/17 22:25 Xalatan 0.005% Eye Drops - OU 1 drop HS [facility] Administration Mirtazapine 15 mg 07/16/17 22:00 07/16/17 22:25 Remeron - PO 15 mg HS [facility] Administration Multivitamins/Minerals 1 each 07/16/17 10:00 07/17/17 10:59 Theragran-M PO 1 each DAILY [facility] Administration Nystatin 1 applic 07/16/17 22:00 07/17/17 15:25 Mycostatin Cream - TP 1 applic TID [facility] Administration Pancrelipase 4 cap 07/16/17 08:00 07/17/17 11:[address] 6,000 Units Capsule PO 4 cap TIDCM [facility] Administration Ranitidine HCl 75 mg 07/16/17 10:00 07/17/17 10:58 Zantac - PO 75 mg BID [facility] Administration Senna 2 tab 07/16/17 10:00 07/17/17 10:59 Senna - PO 2 tab DAILY [facility] Administration Timolol Maleate 1 drop 07/16/17 10:00 07/17/17 10:59 Timoptic 0.5% OU 1 drop DAILY [facility] Administration Impression 1. hyponatremia 2. s/p fall 3. sepsis 4. cellulitis 5. gerd 6. dementia 7. elevated monocytes Plan - sodium is stabilizing - encourage PO intake - can keep on fluids for now, will decrease rate - likely etiology is dehydration as urine sodium is low - repeat labs in am - cont with fluids - follow cultures - follo ct scan results Dr Trujillo
--- NOTE | 2017-07-17 17:54 | CON.GU ---
Consult Consult Specialty:: Referred by:: Adrienne Reason for Consultation:: hematuria - History of Present Illness Chief Complaint: hematuria History of Present Illness: 89 year old NHR with fall admitted with wrist pain. He is noted to have microhematuria on Urinanalysis. Patient unable to give a history. No urinary imaging on file. Urine is grossly clear in the hospital. 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: Yes: Alzheimer's Cardio/Vascular: Yes: HTN, Hyperlipdemia Pulmonary: Yes: Pneumonia Infectious Disease: Yes: Other (URI) Rheumatology: Yes: Other - Past Surgical History Past Surgical History: Yes: None - Alcohol/Substance Use Hx Alcohol Use: No History of Substance Use: reports: None - Smoking History Smoking history: Never smoked Have you smoked in the past 12 months: No Aproximately how many cigarettes per day: 0 - Social History 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 History of Recent Travel: No Home Medications - Allergies Allergies/Adverse Reactions: Allergies Allergy/AdvReac Type Severity Reaction Status Date / Time No Known Allergies Allergy Verified 07/15/17 19:41 - Home Medications Home Medications: Ambulatory Orders Aa/Hydrolyzed Collagen, Whey [Lps 15-30 Liquid] 30 ml PO DAILY 06/30/17 Acetaminophen [Tylenol] 650 mg PO QID 06/30/17 Bimatoprost [Lumigan] 1 drop OU DAILY 06/30/17 Brimonidine Tartrate [Alphagan 0.2% -] 1 drop TID 06/30/17 Cholecalciferol (Vitamin D3) [Vitamin D3] 1,000 unit PO DAILY 06/30/17 Dorzolamide HCl [Trusopt 2% -] 1 drop TID 06/30/17 Guaifenesin [Expectorant] 200 mg PO BID 06/30/17 Lipase/Protease/Amylase [Creon Dr 12,000 Units Capsule] 2 tab PO TID 06/30/17 Mag Hydrox/Al Hydrox/Simeth [Mylanta Oral Suspension -] 30 ml PO Q6H 06/30/17 Metronidazole 1% Cream [Metrocream 1% Cream -] 1 applic TP BID 06/30/17 Mirtazapine [Remeron -] 15 mg PO DAILY 06/30/17 Ranitidine HCl [Zantac 75] 75 mg PO BID 06/30/17 Sennosides [Senna] 2 tab PO DAILY 06/30/17 Simethicone [Gas Relief 80] 80 mg PO QID 06/30/17 Timolol 0.5% [Timoptic 0.5%] 1 drop OU DAILY 06/30/17 Vit A/Vit C/Vit E/Zinc/Copper [Preservision Areds Tablet] 1 each PO BID Meloxicam 7.5 mg PO DAILY 07/15/17 Review of Systems - Review of Systems Genitourinary: denies: Hematuria Physical Exam- Vital Signs: Vital Signs Temperature 98.2 F 07/17/17 15:19 Pulse Rate 78 07/17/17 15:19 Respiratory Rate 18 07/17/17 15:19 Blood Pressure 138/60 07/17/17 15:19 O2 Sat by Pulse Oximetry (%) 98 07/16/17 21:00 Gastrointestinal: Yes: Soft Renal/: No: Bladder Distention, CVA Tenderness - Left, CVA Tenderness - Right , Hematuria Labs: CBC, BMP 07/17/17 06:00 07/17/17 06:00 Problem List - Problems (1) Microhematuria Assessment/Plan: abd/pelvic CT scan recommended Code(s): R31.29 - OTHER MICROSCOPIC HEMATURIA
[2017-07-17] MEDS: MIRTAZAPINE 15 MG TABLET (FP) PO SCH (22:34)
[2017-07-17] MEDS: LATANOPROST 0.005% OPHTH SOLN 2.5ML BOTTLE OU SCH (22:35)
[2017-07-18] MEDS: ACETAMINOPHEN 325 MG TABLET (FP) PO PRN ×4 (01:09→18:09)
[2017-07-18] MEDS: SODIUM CHLORIDE 1,000 ML IV SCH ×2 (02:44→16:27)
[2017-07-18] MEDS: BRIMONIDINE TARTRATE 0.2% OPHTHALMIC 5 ML BOTTLE OU SCH ×3 (06:18→21:41)
[2017-07-18] MEDS: HEPARIN NA (PORCINE) 5,000 UNITS/ML 1ML VIAL SQ SCH ×3 (06:18→21:41)
[2017-07-18] MEDS: DORZOLAMIDE 2% HCL OPHTHALMIC SOLUTION 10 ML BOTTLE OU SCH ×3 (06:19→21:42)
[2017-07-18] MEDS: NYSTATIN 100,000 UNIT/GM TOPICAL CREAM 15 GM TUBE TP SCH ×3 (06:19→21:40)
[2017-07-18 08:36] LABS: BASO % 0.6 % (0-2.0); EOS % 0.1 % (0-4.5); HEMATOCRIT 35.9 % (35.4-49); HEMOGLOBIN 11.6 GM/dL (11.7-16.9); LYMPH % 5.3 % (8-40); MCH 27.8 pg (25.7-33.7); MCHC 32.3 g/dl (32.0-35.9); MEAN CELL VOLUME 86.2 fl (80-96); MEAN PLT VOLUME 7.8 fl (7.5-11.1); MONO % 19.7 % (3.8-10.2); NEUT % 74.3 % (42.8-82.8); PLATELET COUNT 370 K/MM3 (134-434); RBC 4.16 M/mm3 (4.00-5.60); RDW 14.7 % (11.9-15.9)
[2017-07-18 09:11] LABS: CHLORIDE 96 mmol/L (98-107); POTASSIUM 4.1 mmol/L (3.5-5.1); SODIUM 129 mmol/L (136-145)
[2017-07-18 09:17] LABS: ANION GAP 15 (8-16); BLOOD UREA NITROGEN 8 mg/dL (7-18); CALCIUM 7.6 mg/dL (8.5-10.1); CO2 18 mmol/L (21-32); CREATININE 0.5 mg/dL (0.7-1.3); GLUCOSE,RANDOM 110 mg/dL (74-106); MAGNESIUM 1.7 mg/dL (1.8-2.4); PHOSPHOROUS 2.5 mg/dL (2.5-4.9)
[2017-07-18] MEDS: CEFTRIAXONE 1 G/50 ML PREMIX 50 ML IVPB SCH (10:17)
[2017-07-18] MEDS: LIPASE/PROTEASE/AMYLASE 6,000 UNIT CAPSULE PO SCH ×3 (10:17→18:10)
[2017-07-18] MEDS: RANITIDINE HCL 150 MG TABLET (FP) PO SCH ×2 (10:18→21:42)
[2017-07-18] MEDS: SENNOSIDES 8.6MG TABLET (FP) PO SCH (10:19)
[2017-07-18] MEDS: CHOLECALCIFEROL (VITAMIN D3) 1,000 UNIT TABLET (FP) PO SCH (10:21)
[2017-07-18] MEDS: TIMOLOL 0.5% OPHTHALMIC SOL 5 ML BOTTLE OU SCH (10:22)
[2017-07-18] MEDS: MULTIVITAMINS THER W-MINERALS COMBO TABLET (FP) PO SCH (10:38)
[2017-07-18] MEDS ORDERED: MAGNESIUM OXIDE 400 MG TABLET (FP) PO ONE ×2 (11:48→15:45)
--- NOTE | 2017-07-18 11:56 | PN ---
Progress Note, Physician Chief Complaint: Mr Alba says he feels fine but when asked directly says his right hand is painful. States left hand is now better. No cp, sob, n/v but appears more lethargic. - Current Medication List Current Medications: Active Medications Acetaminophen (Tylenol -) 650 mg PO Q4H PRN PRN Reason: FEVER OR PAIN Last Admin: 07/18/17 10:20 Dose: 650 mg Al Hydroxide/Mg Hydroxide (Mylanta Oral Suspension -) 30 ml PO Q6H PRN PRN Reason: INDIGESTION Brimonidine Tartrate (Alphagan 0.2% -) 1 drop OU TID [facility] Last Admin: 07/18/17 06:18 Dose: 1 drop Cholecalciferol (Vitamin D3 -) 1,000 unit PO DAILY [facility] Last Admin: 07/18/17 10:21 Dose: 1,000 unit Dorzolamide HCl (Trusopt 2%) 1 drop OU TID [facility] Last Admin: 07/18/17 06:19 Dose: 1 drop Heparin Sodium (Porcine) (Heparin -) 5,000 unit SQ TID [facility] Last Admin: 07/18/17 06:18 Dose: 5,000 unit CEFTRIAXONE 1 G/50 ML PREMIX (Ceftriaxone 1 Gm-D5w Bag) 50 mls @ 100 mls/hr IVPB DAILY [facility] Last Admin: 07/18/17 10:17 Dose: 100 mls/hr Latanoprost (Xalatan 0.005% Eye Drops -) 1 drop OU HS [facility] Last Admin: 07/17/17 22:35 Dose: 1 drop Magnesium Oxide (Mag-Ox -) 800 mg PO ONCE ONE Stop: 07/18/17 11:49 Mirtazapine (Remeron -) 15 mg PO HS [facility] Last Admin: 07/17/17 22:34 Dose: 15 mg Multivitamins/Minerals (Theragran-M) 1 each PO DAILY [facility] Last Admin: 07/18/17 10:38 Dose: 1 each Nystatin (Mycostatin Cream -) 1 applic TP TID [facility] Last Admin: 07/18/17 06:19 Dose: 1 applic Pancrelipase (Creon Dr 6,000 Units Capsule) 4 cap PO TIDCM [facility] Last Admin: 07/18/17 10:17 Dose: Not Given Ranitidine HCl (Zantac -) 75 mg PO BID [facility] Last Admin: 07/18/17 10:18 Dose: 75 mg Senna (Senna -) 2 tab PO DAILY [facility] Last Admin: 07/18/17 10:19 Dose: 2 tab Timolol Maleate (Timoptic 0.5%) 1 drop OU DAILY [facility] Last Admin: 07/18/17 10:22 Dose: 1 drop - Objective Vital Signs: Vital Signs Temperature 36.9 C 07/18/17 06:00 Pulse Rate 112 H 07/18/17 06:00 Respiratory Rate 20 07/18/17 06:00 Blood Pressure 146/95 07/18/17 06:00 O2 Sat by Pulse Oximetry (%) 98 07/17/17 21:00 Constitutional: Yes: No Distress, Calm, Other (lethargic but easily arousable) Cardiovascular: Yes: Tachycardia. No: Pulse Irregular, Gallop, Murmur, Rub Respiratory: Yes: Regular, CTA Bilaterally. No: Rales, Rhonchi, Wheezes Gastrointestinal: Yes: Normal Bowel Sounds, Soft. No: Distention, Tenderness Extremities: Yes: Erythema (R>L) Edema: LUE: Trace, RUE: 1+ Labs: CBC, BMP 07/18/17 06:30 07/18/17 06:30 INR, PTT INR 1.23 (0.82-1.09) H 07/16/17 07:00 Problem List - Problems (1) Sepsis Code(s): A41.9 - SEPSIS, UNSPECIFIED ORGANISM (2) Dementia Code(s): F03.90 - UNSPECIFIED DEMENTIA WITHOUT BEHAVIORAL DISTURBANCE (3) Hypertension Code(s): I10 - ESSENTIAL (PRIMARY) HYPERTENSION Qualifiers: Hypertension type: essential hypertension Qualified Code(s): I10 - Essential (primary) hypertension (4) Weakness Code(s): R53.1 - WEAKNESS (5) Glaucoma Code(s): H40.9 - UNSPECIFIED GLAUCOMA Assessment/Plan (1) Sepsis Assessment/Plan: -source remains unclear -ID following -continue rocephin Code(s): A41.9 - SEPSIS, UNSPECIFIED ORGANISM (2) Dementia Assessment/Plan: -stable -continue home regimen Code(s): F03.90 - UNSPECIFIED DEMENTIA WITHOUT BEHAVIORAL DISTURBANCE (3) Hypertension Assessment/Plan: -well controlled -continue current regimen Code(s): I10 - ESSENTIAL (PRIMARY) HYPERTENSION Qualifiers: Hypertension type: essential hypertension Qualified Code(s): I10 - Essential (primary) hypertension (4) Weakness Assessment/Plan: -PT consulted Code(s): R53.1 - WEAKNESS (5) Glaucoma Assessment/Plan: -continue eye drops Code(s): H40.9 - UNSPECIFIED GLAUCOMA (6) Hand pain -CT LUE read reviewed -now with R hand erythema and edema -also with pain -will obtain x-ray of R hand and wrist
--- NOTE | 2017-07-18 13:48 | PN ---
Progress Note, Physician History of Present Illness: Pt seen and examined at bedside. He appears comfortable. - Current Medication List Current Medications: Active Medications Acetaminophen (Tylenol -) 650 mg PO Q4H PRN PRN Reason: FEVER OR PAIN Last Admin: 07/18/17 10:20 Dose: 650 mg Al Hydroxide/Mg Hydroxide (Mylanta Oral Suspension -) 30 ml PO Q6H PRN PRN Reason: INDIGESTION Brimonidine Tartrate (Alphagan 0.2% -) 1 drop OU TID [facility] Last Admin: 07/18/17 06:18 Dose: 1 drop Cholecalciferol (Vitamin D3 -) 1,000 unit PO DAILY [facility] Last Admin: 07/18/17 10:21 Dose: 1,000 unit Dorzolamide HCl (Trusopt 2%) 1 drop OU TID [facility] Last Admin: 07/18/17 06:19 Dose: 1 drop Heparin Sodium (Porcine) (Heparin -) 5,000 unit SQ TID [facility] Last Admin: 07/18/17 06:18 Dose: 5,000 unit CEFTRIAXONE 1 G/50 ML PREMIX (Ceftriaxone 1 Gm-D5w Bag) 50 mls @ 100 mls/hr IVPB DAILY [facility] Last Admin: 07/18/17 10:17 Dose: 100 mls/hr Latanoprost (Xalatan 0.005% Eye Drops -) 1 drop OU HS [facility] Last Admin: 07/17/17 22:35 Dose: 1 drop Mirtazapine (Remeron -) 15 mg PO HS [facility] Last Admin: 07/17/17 22:34 Dose: 15 mg Multivitamins/Minerals (Theragran-M) 1 each PO DAILY [facility] Last Admin: 07/18/17 10:38 Dose: 1 each Nystatin (Mycostatin Cream -) 1 applic TP TID [facility] Last Admin: 07/18/17 06:19 Dose: 1 applic Pancrelipase (Creon Dr 6,000 Units Capsule) 4 cap PO TIDCM [facility] Last Admin: 07/18/17 10:17 Dose: Not Given Ranitidine HCl (Zantac -) 75 mg PO BID [facility] Last Admin: 07/18/17 10:18 Dose: 75 mg Senna (Senna -) 2 tab PO DAILY [facility] Last Admin: 07/18/17 10:19 Dose: 2 tab Timolol Maleate (Timoptic 0.5%) 1 drop OU DAILY [facility] Last Admin: 07/18/17 10:22 Dose: 1 drop - Objective Vital Signs: Vital Signs Temperature 98.5 F 07/18/17 06:00 Pulse Rate 112 H 07/18/17 06:00 Respiratory Rate 20 07/18/17 06:00 Blood Pressure 146/95 07/18/17 06:00 O2 Sat by Pulse Oximetry (%) 98 07/17/17 21:00 Constitutional: Yes: Calm Eyes: Yes: Conjunctiva Clear HENT: Yes: Atraumatic Neck: Yes: Supple Cardiovascular: Yes: S1, S2 Respiratory: Yes: CTA Bilaterally Gastrointestinal: Yes: Normal Bowel Sounds, Soft Genitourinary: Yes: Incontinence Musculoskeletal: Yes: Other (left arm pain) Edema: LLE: Trace, RLE: Trace Neurological: Yes: Oriented Labs: CBC, BMP 07/18/17 06:30 07/18/17 06:30 INR, PTT INR 1.23 (0.82-1.09) H 07/16/17 07:00 Problem List - Problems (1) Hyponatremia Code(s): E87.1 - HYPO-OSMOLALITY AND HYPONATREMIA (2) Sepsis Code(s): A41.9 - SEPSIS, UNSPECIFIED ORGANISM (3) Soft tissue infection Code(s): L08.9 - LOCAL INFECTION OF THE SKIN AND SUBCUTANEOUS TISSUE, UNSP (4) Dementia Code(s): F03.90 - UNSPECIFIED DEMENTIA WITHOUT BEHAVIORAL DISTURBANCE (5) Hypertension Code(s): I10 - ESSENTIAL (PRIMARY) HYPERTENSION Qualifiers: Hypertension type: essential hypertension Qualified Code(s): I10 - Essential (primary) hypertension Assessment/Plan Current Medications Generic Name Dose Route Start Last Admin Trade Name Freq PRN Reason Stop Dose Admin Acetaminophen 650 mg 07/16/17 00:44 07/18/17 10:20 Tylenol - PO 650 mg Q4H PRN Administration FEVER OR PAIN Al Hydroxide/Mg Hydroxide 30 ml 07/16/17 02:00 Mylanta Oral Suspension - PO Q6H PRN INDIGESTION Brimonidine Tartrate 1 drop 07/16/17 06:00 07/18/17 06:18 Alphagan 0.2% - OU 1 drop TID [facility] Administration Cholecalciferol 1,000 unit 07/16/17 10:00 07/18/17 10:21 Vitamin D3 - PO 1,000 unit DAILY [facility] Administration Dorzolamide HCl 1 drop 07/16/17 06:00 07/18/17 06:19 Trusopt 2% OU 1 drop TID [facility] Administration Heparin Sodium (Porcine) 5,000 unit 07/16/17 06:00 07/18/17 06:18 Heparin - SQ 5,000 unit TID [facility] Administration CEFTRIAXONE 1 G/50 ML PREMIX 50 mls @ 100 mls/hr 07/16/17 11:45 07/18/17 10: 17 Ceftriaxone 1 Gm-D5w Bag IVPB 100 mls/hr DAILY [facility] Administration Latanoprost 1 drop 07/16/17 22:00 07/17/17 22:35 Xalatan 0.005% Eye Drops - OU 1 drop HS [facility] Administration Mirtazapine 15 mg 07/16/17 22:00 07/17/17 22:34 Remeron - PO 15 mg HS [facility] Administration Multivitamins/Minerals 1 each 07/16/17 10:00 07/18/17 10:38 Theragran-M PO 1 each DAILY [facility] Administration Nystatin 1 applic 07/16/17 22:00 07/18/17 06:19 Mycostatin Cream - TP 1 applic TID [facility] Administration Pancrelipase 4 cap 07/16/17 08:00 07/18/17 10:17 Мария Chou 6,000 Units Capsule PO Not Given TIDCM [facility] Ranitidine HCl 75 mg 07/16/17 10:00 07/18/17 10:18 Zantac - PO 75 mg BID [facility] Administration Senna 2 tab 07/16/17 10:00 07/18/17 10:19 Senna - PO 2 tab DAILY [facility] Administration Timolol Maleate 1 drop 07/16/17 10:00 07/18/17 10:22 Timoptic 0.5% OU 1 drop DAILY [facility] Administration Laboratory Tests 10/21/12 10/22/12 10/25/14 17:44 06:00 05:35 Sodium 134 L 134 L 127 L 10/26/14 04/09/16 07/03/17 07:00 00:20 12:00 Sodium 132 L 131 L 133 L 07/18/17 06:30 Sodium 129 L Impression 1. hyponatremia - chronic 2. s/p fall 3. sepsis 4. cellulitis 5. gerd 6. dementia 7. elevated monocytes Plan - sodium has chronically been low since 2012 - pt may have reset osmostat - can cont fluids for now - encourage PO intake - repeat labs in am - follow cultures Dr Trujillo
--- NOTE | 2017-07-18 15:19 | PN ---
Progress Note, Physician History of Present Illness: stable still with sever pain of the arm now pain on the arm on the other side xray done also ct abd pelvis done for hematuria - Current Medication List Current Medications: Active Medications Acetaminophen (Tylenol -) 650 mg PO Q4H PRN PRN Reason: FEVER OR PAIN Last Admin: 07/18/17 10:20 Dose: 650 mg Al Hydroxide/Mg Hydroxide (Mylanta Oral Suspension -) 30 ml PO Q6H PRN PRN Reason: INDIGESTION Brimonidine Tartrate (Alphagan 0.2% -) 1 drop OU TID [facility] Last Admin: 07/18/17 06:18 Dose: 1 drop Cholecalciferol (Vitamin D3 -) 1,000 unit PO DAILY [facility] Last Admin: 07/18/17 10:21 Dose: 1,000 unit Dorzolamide HCl (Trusopt 2%) 1 drop OU TID [facility] Last Admin: 07/18/17 06:19 Dose: 1 drop Heparin Sodium (Porcine) (Heparin -) 5,000 unit SQ TID [facility] Last Admin: 07/18/17 06:18 Dose: 5,000 unit CEFTRIAXONE 1 G/50 ML PREMIX (Ceftriaxone 1 Gm-D5w Bag) 50 mls @ 100 mls/hr IVPB DAILY [facility] Last Admin: 07/18/17 10:17 Dose: 100 mls/hr Sodium Chloride (Normal Saline -) 1,000 mls @ 35 mls/hr IV ASDIR [facility]ELIS[facility] Latanoprost (Xalatan 0.005% Eye Drops -) 1 drop OU HS [facility] Last Admin: 07/17/17 22:35 Dose: 1 drop Mirtazapine (Remeron -) 15 mg PO HS [facility] Last Admin: 07/17/17 22:34 Dose: 15 mg Multivitamins/Minerals (Theragran-M) 1 each PO DAILY [facility] Last Admin: 07/18/17 10:38 Dose: 1 each Nystatin (Mycostatin Cream -) 1 applic TP TID [facility] Last Admin: 07/18/17 06:19 Dose: 1 applic Pancrelipase (Creon Dr 6,000 Units Capsule) 4 cap PO TIDCM [facility] Last Admin: 07/18/17 15:10 Dose: Not Given Ranitidine HCl (Zantac -) 75 mg PO BID [facility] Last Admin: 07/18/17 10:18 Dose: 75 mg Senna (Senna -) 2 tab PO DAILY [facility] Last Admin: 07/18/17 10:19 Dose: 2 tab Timolol Maleate (Timoptic 0.5%) 1 drop OU DAILY [facility] Last Admin: 07/18/17 10:22 Dose: 1 drop - Objective Vital Signs: Vital Signs Temperature 98.5 F 07/18/17 06:00 Pulse Rate 112 H 07/18/17 06:00 Respiratory Rate 20 07/18/17 06:00 Blood Pressure 146/95 07/18/17 06:00 O2 Sat by Pulse Oximetry (%) 98 07/17/17 21:00 Constitutional: Yes: Calm, Mild Distress Cardiovascular: Yes: Regular Rate and Rhythm Respiratory: Yes: Regular, CTA Bilaterally Gastrointestinal: Yes: Normal Bowel Sounds, Soft Musculoskeletal: Yes: Other Extremities: Yes: Other Integumentary: Yes: Erythema Neurological: Yes: Alert, Oriented Psychiatric: Yes: Alert, Oriented Labs: CBC, BMP 07/18/17 06:30 07/18/17 06:30 INR, PTT INR 1.23 (0.82-1.09) H 07/16/17 07:00 - ....Imaging X-ray: Image Reviewed Cat Scan: Report Reviewed, Image Reviewed Assessment/Plan #Sepsis secondary to presumed cellulitis #Hyponatremia #HTN #GERD #Dementia #Glaucoma lactic acidosis plan ct results noted close watch on the patient rest continue current mgmt urology on case elevation and rest of the hand
[2017-07-18] MEDS ORDERED: PT OWN MED DRAWER 7, Y5N ONE (18:07)
[2017-07-18] MEDS: MIRTAZAPINE 15 MG TABLET (FP) PO SCH (21:41)
[2017-07-18] MEDS: LATANOPROST 0.005% OPHTH SOLN 2.5ML BOTTLE OU SCH (21:42)
[2017-07-19] MEDS: BRIMONIDINE TARTRATE 0.2% OPHTHALMIC 5 ML BOTTLE OU SCH ×3 (06:11→22:06)
[2017-07-19] MEDS: HEPARIN NA (PORCINE) 5,000 UNITS/ML 1ML VIAL SQ SCH ×3 (06:11→22:05)
[2017-07-19] MEDS: DORZOLAMIDE 2% HCL OPHTHALMIC SOLUTION 10 ML BOTTLE OU SCH ×3 (06:11→22:26)
[2017-07-19] MEDS: NYSTATIN 100,000 UNIT/GM TOPICAL CREAM 15 GM TUBE TP SCH ×3 (06:13→22:08)
[2017-07-19] MEDS ORDERED: PT OWN MED DRAWER 7, Y5N ONE ×5 (07:16→21:48)
[2017-07-19 07:52] LABS: BASO % 0.7 % (0-2.0); EOS % 0.6 % (0-4.5); HEMATOCRIT 36.4 % (35.4-49); HEMOGLOBIN 11.7 GM/dL (11.7-16.9); LYMPH % 13.3 % (8-40); MCH 27.9 pg (25.7-33.7); MCHC 32.2 g/dl (32.0-35.9); MEAN CELL VOLUME 86.5 fl (80-96); MEAN PLT VOLUME 7.3 fl (7.5-11.1); MONO % 18.9 % (3.8-10.2); NEUT % 66.5 % (42.8-82.8); PLATELET COUNT 360 K/MM3 (134-434); RBC 4.21 M/mm3 (4.00-5.60); RDW 15.1 % (11.9-15.9); WHITE BLOOD COUNT 6.7 K/mm3 (4.0-10.0)
[2017-07-19 08:21] LABS: CHLORIDE 103 mmol/L (98-107); POTASSIUM 4.1 mmol/L (3.5-5.1); SODIUM 133 mmol/L (136-145)
[2017-07-19 08:28] LABS: ANION GAP 10 (8-16); BLOOD UREA NITROGEN 9 mg/dL (7-18); CALCIUM 7.3 mg/dL (8.5-10.1); CO2 20 mmol/L (21-32); CREATININE 0.5 mg/dL (0.7-1.3); GLUCOSE,RANDOM 99 mg/dL (74-106); MAGNESIUM 2.3 mg/dL (1.8-2.4); PHOSPHOROUS 2.6 mg/dL (2.5-4.9)
--- NOTE | 2017-07-19 09:12 | CON.GI ---
Consult Consult Specialty:: GI - History of Present Illness History of Present Illness: Chart reviewed. Events noted. This is an 89 yom with Alzheimer dementia, who was admitted from [place] for left upper extremity issues requiring septic work up and imaging. He was also found to be dehydrated. An abdominal CT with and without contrast to investigate hematurea revealed a pancreatic, cystic lesion with mildly dilated pancreatic duct. The patient offers no abdominal symptoms at the time of this encounter. There are no records of significant weight loss, jaundice, or pancreatic disease. The are no abdominal studies recorder in the system ([id number]) to compare the pancreatic findings. 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 History of Recent Travel: No Home Medications - Allergies Allergies/Adverse Reactions: Allergies Allergy/AdvReac Type Severity Reaction Status Date / Time No Known Allergies Allergy Verified 07/15/17 19:41 - Home Medications Home Medications: Ambulatory Orders Aa/Hydrolyzed Collagen, Whey [Lps 15-30 Liquid] 30 ml PO DAILY 06/30/17 Acetaminophen [Tylenol] 650 mg PO QID 06/30/17 Bimatoprost [Lumigan] 1 drop OU DAILY 06/30/17 Brimonidine Tartrate [Alphagan 0.2% -] 1 drop TID 06/30/17 Cholecalciferol (Vitamin D3) [Vitamin D3] 1,000 unit PO DAILY 06/30/17 Dorzolamide HCl [Trusopt 2% -] 1 drop TID 06/30/17 Guaifenesin [Expectorant] 200 mg PO BID 06/30/17 Lipase/Protease/Amylase [Creon Dr 12,000 Units Capsule] 2 tab PO TID 06/30/17 Mag Hydrox/Al Hydrox/Simeth [Mylanta Oral Suspension -] 30 ml PO Q6H 06/30/17 Metronidazole 1% Cream [Metrocream 1% Cream -] 1 applic TP BID 06/30/17 Mirtazapine [Remeron -] 15 mg PO DAILY 06/30/17 Ranitidine HCl [Zantac 75] 75 mg PO BID 06/30/17 Sennosides [Senna] 2 tab PO DAILY 06/30/17 Simethicone [Gas Relief 80] 80 mg PO QID 06/30/17 Timolol 0.5% [Timoptic 0.5%] 1 drop OU DAILY 06/30/17 Vit A/Vit C/Vit E/Zinc/Copper [Preservision Areds Tablet] 1 each PO BID Meloxicam 7.5 mg PO DAILY 07/15/17 Family Disease History - Family Disease History Family History: Unremarkable (noncontributory) Review of Systems Findings/Remarks: As per H&P, HPI Physical Exam-GI Vital Signs: Vital Signs Temperature 98.4 F 07/19/17 06:00 Pulse Rate 97 H 07/19/17 06:00 Respiratory Rate 18 07/19/17 06:00 Blood Pressure 149/82 07/19/17 06:00 O2 Sat by Pulse Oximetry (%) 98 07/18/17 21:00 Constitutional: Yes: No Distress, Calm Eyes: Yes: Conjunctiva Clear. No: Sclera Icterus HENT: Yes: Atraumatic Neck: Yes: Supple Cardiovascular: Yes: Regular Rate and Rhythm Respiratory: Yes: Regular Gastrointestinal Inspection: No: Ascites, Distention ...Auscultate: Yes: Normoactive Bowel Sounds ...Palpate: No: Firm/Rigid, Guarding, Soft, Splenomegaly, Tenderness, Tenderness , Epigastium Labs: CBC, BMP 07/19/17 06:30 07/19/17 06:30 INR, PTT INR 1.23 (0.82-1.09) H 07/16/17 07:00 Assessment/Plan An accidentally found asymptomatic, pancreatic, cystic lesion in an 89 yo debilitated and frail NHR with alzheimers dementia. EUS with FNA will be needed to diagnose the lesion. however, given the advanced age and overall status of the patient, a conservative approach should be strongly considered and discussed with the patient's family. The patient is not likely to undergo major abdominal surgery, or tolerate chemotherapy should the lesion in question is proven to be malignant.
[2017-07-19] MEDS: RANITIDINE HCL 150 MG TABLET (FP) PO SCH ×2 (10:39→22:04)
[2017-07-19] MEDS: MULTIVITAMINS THER W-MINERALS COMBO TABLET (FP) PO SCH (10:39)
[2017-07-19] MEDS: CHOLECALCIFEROL (VITAMIN D3) 1,000 UNIT TABLET (FP) PO SCH (10:39)
[2017-07-19] MEDS: SENNOSIDES 8.6MG TABLET (FP) PO SCH (10:40)
[2017-07-19] MEDS: CEFTRIAXONE 1 G/50 ML PREMIX 50 ML IVPB SCH (10:42)
[2017-07-19] MEDS: LIPASE/PROTEASE/AMYLASE 6,000 UNIT CAPSULE PO SCH ×3 (10:44→17:45)
--- NOTE | 2017-07-19 11:27 | PN ---
Progress Note, Physician Chief Complaint: Mr Alba says his right hand is painful but slightly better. No cp, sob, n/v. - Current Medication List Current Medications: Active Medications Acetaminophen (Tylenol -) 650 mg PO Q4H PRN PRN Reason: FEVER OR PAIN Last Admin: 07/18/17 18:09 Dose: 650 mg Al Hydroxide/Mg Hydroxide (Mylanta Oral Suspension -) 30 ml PO Q6H PRN PRN Reason: INDIGESTION Brimonidine Tartrate (Alphagan 0.2% -) 1 drop OU TID REPLACED BY [facility] Last Admin: 07/19/17 06:11 Dose: 1 drop Celecoxib (Celebrex -) 100 mg PO ONCE ONE Stop: 07/19/17 11:27 Cholecalciferol (Vitamin D3 -) 1,000 unit PO DAILY REPLACED BY [facility] Last Admin: 07/19/17 10:39 Dose: 1,000 unit Dorzolamide HCl (Trusopt 2%) 1 drop OU TID REPLACED BY [facility] Last Admin: 07/19/17 06:11 Dose: 1 drop Heparin Sodium (Porcine) (Heparin -) 5,000 unit SQ TID REPLACED BY [facility] Last Admin: 07/19/17 06:11 Dose: 5,000 unit CEFTRIAXONE 1 G/50 ML PREMIX (Ceftriaxone 1 Gm-D5w Bag) 50 mls @ 100 mls/hr IVPB DAILY REPLACED BY [facility] Last Admin: 07/19/17 10:42 Dose: 100 mls/hr Sodium Chloride (Normal Saline -) 1,000 mls @ 35 mls/hr IV ASDIR REPLACED BY [facility] Last Admin: 07/18/17 16:27 Dose: 35 mls/hr Latanoprost (Xalatan 0.005% Eye Drops -) 1 drop OU HS REPLACED BY [facility] Last Admin: 07/18/17 21:42 Dose: 1 drop Mirtazapine (Remeron -) 15 mg PO HS REPLACED BY [facility] Last Admin: 07/18/17 21:41 Dose: 15 mg Multivitamins/Minerals (Theragran-M) 1 each PO DAILY REPLACED BY [facility] Last Admin: 07/19/17 10:39 Dose: 1 each Nystatin (Mycostatin Cream -) 1 applic TP TID REPLACED BY [facility] Last Admin: 07/19/17 06:13 Dose: 1 applic Pancrelipase (Creon Dr 6,000 Units Capsule) 4 cap PO TIDCM REPLACED BY [facility] Last Admin: 07/19/17 10:44 Dose: 4 cap Ranitidine HCl (Zantac -) 75 mg PO BID REPLACED BY [facility] Last Admin: 07/19/17 10:39 Dose: 75 mg Senna (Senna -) 2 tab PO DAILY REPLACED BY [facility] Last Admin: 07/19/17 10:40 Dose: 2 tab Timolol Maleate (Timoptic 0.5%) 1 drop OU DAILY REPLACED BY [facility] Last Admin: 07/18/17 10:22 Dose: 1 drop - Objective Vital Signs: Vital Signs Temperature 36.9 C 07/19/17 06:00 Pulse Rate 97 H 07/19/17 06:00 Respiratory Rate 18 07/19/17 06:00 Blood Pressure 149/82 07/19/17 06:00 O2 Sat by Pulse Oximetry (%) 98 07/18/17 21:00 Constitutional: Yes: Well Nourished, No Distress, Calm Cardiovascular: Yes: Regular Rate and Rhythm. No: Gallop, Murmur, Rub Respiratory: Yes: Regular, CTA Bilaterally. No: Rales, Rhonchi, Wheezes Gastrointestinal: Yes: Normal Bowel Sounds, Soft. No: Distention, Tenderness Extremities: Yes: WNL Edema: No Labs: CBC, BMP 07/19/17 06:30 07/19/17 06:30 INR, PTT INR 1.23 (0.82-1.09) H 07/16/17 07:00 Problem List - Problems (1) Sepsis Code(s): A41.9 - SEPSIS, UNSPECIFIED ORGANISM (2) Dementia Code(s): F03.90 - UNSPECIFIED DEMENTIA WITHOUT BEHAVIORAL DISTURBANCE (3) Hypertension Code(s): I10 - ESSENTIAL (PRIMARY) HYPERTENSION Qualifiers: Hypertension type: essential hypertension Qualified Code(s): I10 - Essential (primary) hypertension (4) Weakness Code(s): R53.1 - WEAKNESS (5) Glaucoma Code(s): H40.9 - UNSPECIFIED GLAUCOMA Assessment/Plan (1) Sepsis Assessment/Plan: -resolved -no source of infection identified -SIRS, possibly inflammatory Code(s): A41.9 - SEPSIS, UNSPECIFIED ORGANISM (2) Dementia Assessment/Plan: -stable -continue home regimen Code(s): F03.90 - UNSPECIFIED DEMENTIA WITHOUT BEHAVIORAL DISTURBANCE (3) Hypertension Assessment/Plan: -well controlled -continue current regimen Code(s): I10 - ESSENTIAL (PRIMARY) HYPERTENSION Qualifiers: Hypertension type: essential hypertension Qualified Code(s): I10 - Essential (primary) hypertension (4) Weakness Assessment/Plan: -PT consulted Code(s): R53.1 - WEAKNESS (5) Glaucoma Assessment/Plan: -continue eye drops Code(s): H40.9 - UNSPECIFIED GLAUCOMA (6) Arthritis -CT and x-ray reviewed -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
--- NOTE | 2017-07-19 11:44 | PN ---
Progress Note, Physician History of Present Illness: feeling better swelling of the hand improving finger movements better still with pain and erythema - Current Medication List Current Medications: Active Medications Acetaminophen (Tylenol -) 650 mg PO Q4H PRN PRN Reason: FEVER OR PAIN Last Admin: 07/18/17 18:09 Dose: 650 mg Al Hydroxide/Mg Hydroxide (Mylanta Oral Suspension -) 30 ml PO Q6H PRN PRN Reason: INDIGESTION Brimonidine Tartrate (Alphagan 0.2% -) 1 drop OU TID [facility] Last Admin: 07/19/17 06:11 Dose: 1 drop Celecoxib (Celebrex -) 100 mg PO ONCE ONE Stop: 07/19/17 12:01 Cholecalciferol (Vitamin D3 -) 1,000 unit PO DAILY [facility] Last Admin: 07/19/17 10:39 Dose: 1,000 unit Dorzolamide HCl (Trusopt 2%) 1 drop OU TID [facility] Last Admin: 07/19/17 06:11 Dose: 1 drop Heparin Sodium (Porcine) (Heparin -) 5,000 unit SQ TID [facility] Last Admin: 07/19/17 06:11 Dose: 5,000 unit CEFTRIAXONE 1 G/50 ML PREMIX (Ceftriaxone 1 Gm-D5w Bag) 50 mls @ 100 mls/hr IVPB DAILY [facility] Last Admin: 07/19/17 10:42 Dose: 100 mls/hr Sodium Chloride (Normal Saline -) 1,000 mls @ 35 mls/hr IV ASDIR [facility] Last Admin: 07/18/17 16:27 Dose: 35 mls/hr Latanoprost (Xalatan 0.005% Eye Drops -) 1 drop OU HS [facility] Last Admin: 07/18/17 21:42 Dose: 1 drop Mirtazapine (Remeron -) 15 mg PO HS [facility] Last Admin: 07/18/17 21:41 Dose: 15 mg Multivitamins/Minerals (Theragran-M) 1 each PO DAILY [facility] Last Admin: 07/19/17 10:39 Dose: 1 each Nystatin (Mycostatin Cream -) 1 applic TP TID [facility] Last Admin: 07/19/17 06:13 Dose: 1 applic Pancrelipase (Creon Dr 6,000 Units Capsule) 4 cap PO TIDCM [facility] Last Admin: 07/19/17 10:44 Dose: 4 cap Ranitidine HCl (Zantac -) 75 mg PO BID [facility] Last Admin: 07/19/17 10:39 Dose: 75 mg Senna (Senna -) 2 tab PO DAILY [facility] Last Admin: 07/19/17 10:40 Dose: 2 tab Timolol Maleate (Timoptic 0.5%) 1 drop OU DAILY [facility] Last Admin: 07/18/17 10:22 Dose: 1 drop - Objective Vital Signs: Vital Signs Temperature 98.4 F 07/19/17 06:00 Pulse Rate 97 H 07/19/17 06:00 Respiratory Rate 18 07/19/17 06:00 Blood Pressure 149/82 07/19/17 06:00 O2 Sat by Pulse Oximetry (%) 98 07/18/17 21:00 Constitutional: Yes: No Distress, Calm Cardiovascular: Yes: Regular Rate and Rhythm Respiratory: Yes: Regular, CTA Bilaterally Gastrointestinal: Yes: Normal Bowel Sounds, Soft Musculoskeletal: Yes: Other Extremities: Yes: Erythema (resolving of the rt hand) Integumentary: Yes: Erythema (improving) Neurological: Yes: Alert Psychiatric: Yes: Alert Labs: CBC, BMP 07/19/17 06:30 07/19/17 06:30 INR, PTT INR 1.23 (0.82-1.09) H 07/16/17 07:00 Assessment/Plan Problem List - Problems (1) Sepsis Code(s): A41.9 - SEPSIS, UNSPECIFIED ORGANISM (2) Dementia Code(s): F03.90 - UNSPECIFIED DEMENTIA WITHOUT BEHAVIORAL DISTURBANCE (3) Hypertension Code(s): I10 - ESSENTIAL (PRIMARY) HYPERTENSION Qualifiers: Hypertension type: essential hypertension Qualified Code(s): I10 - Essential (primary) hypertension (4) Weakness Code(s): R53.1 - WEAKNESS (5) Glaucoma Code(s): H40.9 - UNSPECIFIED GLAUCOMA Assessment/Plan (1) Sepsis Code(s): A41.9 - SEPSIS, UNSPECIFIED ORGANISM (2) Dementia Code(s): F03.90 - UNSPECIFIED DEMENTIA WITHOUT BEHAVIORAL DISTURBANCE (3) Hypertension Code(s): I10 - ESSENTIAL (PRIMARY) HYPERTENSION Qualifiers: Hypertension type: essential hypertension Qualified Code(s): I10 - Essential (primary) hypertension (4) Weakness Code(s): R53.1 - WEAKNESS (5) Glaucoma Code(s): H40.9 - UNSPECIFIED GLAUCOMA (6) Hand pain plan will stop abx and watch had physio urology on case for hematuria rest ahs per primary
[2017-07-19] MEDS: TIMOLOL 0.5% OPHTHALMIC SOL 5 ML BOTTLE OU SCH (11:49)
[2017-07-19] MEDS ORDERED: CELECOXIB 100 MG CAPSULE PO ONE (12:00)
--- NOTE | 2017-07-19 15:09 | PN ---
Progress Note, Physician History of Present Illness: Pt seen and examined at bedside. He is awake and appears comfortable. He denies shortness of breath. - Current Medication List Current Medications: Active Medications Acetaminophen (Tylenol -) 650 mg PO Q4H PRN PRN Reason: FEVER OR PAIN Last Admin: 07/18/17 18:09 Dose: 650 mg Al Hydroxide/Mg Hydroxide (Mylanta Oral Suspension -) 30 ml PO Q6H PRN PRN Reason: INDIGESTION Brimonidine Tartrate (Alphagan 0.2% -) 1 drop OU TID [facility] Last Admin: 07/19/17 06:11 Dose: 1 drop Cholecalciferol (Vitamin D3 -) 1,000 unit PO DAILY [facility] Last Admin: 07/19/17 10:39 Dose: 1,000 unit Dorzolamide HCl (Trusopt 2%) 1 drop OU TID [facility] Last Admin: 07/19/17 06:11 Dose: 1 drop Heparin Sodium (Porcine) (Heparin -) 5,000 unit SQ TID [facility] Last Admin: 07/19/17 06:11 Dose: 5,000 unit Sodium Chloride (Normal Saline -) 1,000 mls @ 35 mls/hr IV ASDIR [facility] Last Admin: 07/18/17 16:27 Dose: 35 mls/hr Latanoprost (Xalatan 0.005% Eye Drops -) 1 drop OU HS [facility] Last Admin: 07/18/17 21:42 Dose: 1 drop Mirtazapine (Remeron -) 15 mg PO HS [facility] Last Admin: 07/18/17 21:41 Dose: 15 mg Multivitamins/Minerals (Theragran-M) 1 each PO DAILY [facility] Last Admin: 07/19/17 10:39 Dose: 1 each Nystatin (Mycostatin Cream -) 1 applic TP TID [facility] Last Admin: 07/19/17 06:13 Dose: 1 applic Pancrelipase (Creon Dr 6,000 Units Capsule) 4 cap PO TIDCM [facility] Last Admin: 07/19/17 13:18 Dose: 4 cap Ranitidine HCl (Zantac -) 75 mg PO BID [facility] Last Admin: 07/19/17 10:39 Dose: 75 mg Senna (Senna -) 2 tab PO DAILY [facility] Last Admin: 07/19/17 10:40 Dose: 2 tab Timolol Maleate (Timoptic 0.5%) 1 drop OU DAILY [facility] Last Admin: 07/19/17 11:49 Dose: 1 drop - Objective Vital Signs: Vital Signs Temperature 98.2 F 07/19/17 14:12 Pulse Rate 66 07/19/17 14:12 Respiratory Rate 16 07/19/17 14:12 Blood Pressure 118/70 07/19/17 14:12 O2 Sat by Pulse Oximetry (%) 98 07/18/17 21:00 Constitutional: Yes: Calm Eyes: Yes: Conjunctiva Clear HENT: Yes: Atraumatic Neck: Yes: Supple Cardiovascular: Yes: S1, S2 Respiratory: Yes: CTA Bilaterally Gastrointestinal: Yes: Soft Genitourinary: Yes: WNL Musculoskeletal: Yes: Muscle Weakness Edema: LLE: Trace, RLE: Trace Neurological: Yes: Oriented Psychiatric: Yes: Oriented Labs: CBC, BMP 07/19/17 06:30 07/19/17 06:30 INR, PTT INR 1.23 (0.82-1.09) H 07/16/17 07:00 Problem List - Problems (1) Hyponatremia Code(s): E87.1 - HYPO-OSMOLALITY AND HYPONATREMIA (2) Sepsis Code(s): A41.9 - SEPSIS, UNSPECIFIED ORGANISM (3) Soft tissue infection Code(s): L08.9 - LOCAL INFECTION OF THE SKIN AND SUBCUTANEOUS TISSUE, UNSP (4) Dementia Code(s): F03.90 - UNSPECIFIED DEMENTIA WITHOUT BEHAVIORAL DISTURBANCE (5) Hypertension Code(s): I10 - ESSENTIAL (PRIMARY) HYPERTENSION Qualifiers: Hypertension type: essential hypertension Qualified Code(s): I10 - Essential (primary) hypertension Assessment/Plan Current Medications Generic Name Dose Route Start Last Admin Trade Name Freq PRN Reason Stop Dose Admin Acetaminophen 650 mg 07/16/17 00:44 07/18/17 18:09 Tylenol - PO 650 mg Q4H PRN Administration FEVER OR PAIN Al Hydroxide/Mg Hydroxide 30 ml 07/16/17 02:00 Mylanta Oral Suspension - PO Q6H PRN INDIGESTION Brimonidine Tartrate 1 drop 07/16/17 06:00 07/19/17 06:11 Alphagan 0.2% - OU 1 drop TID [facility] Administration Cholecalciferol 1,000 unit 07/16/17 10:00 07/19/17 10:39 Vitamin D3 - PO 1,000 unit DAILY [facility] Administration Dorzolamide HCl 1 drop 07/16/17 06:00 07/19/17 06:11 Trusopt 2% OU 1 drop TID [facility] Administration Heparin Sodium (Porcine) 5,000 unit 07/16/17 06:00 07/19/17 06:11 Heparin - SQ 5,000 unit TID [facility] Administration Sodium Chloride 1,000 mls @ 35 mls/hr 07/18/17 14:00 07/18/17 16:27 Normal Saline - IV 35 mls/hr ASDIR [facility] Administration Latanoprost 1 drop 07/16/17 22:00 07/18/17 21:42 Xalatan 0.005% Eye Drops - OU 1 drop HS [facility] Administration Mirtazapine 15 mg 07/16/17 22:00 07/18/17 21:41 Remeron - PO 15 mg HS [facility] Administration Multivitamins/Minerals 1 each 07/16/17 10:00 07/19/17 10:39 Theragran-M PO 1 each DAILY [facility] Administration Nystatin 1 applic 07/16/17 22:00 07/19/17 06:13 Mycostatin Cream - TP 1 applic TID [facility] Administration Pancrelipase 4 cap 07/16/17 08:00 07/19/17 13:18 Creking Chou 6,000 Units Capsule PO 4 cap TIDCM [facility] Administration Ranitidine HCl 75 mg 07/16/17 10:00 07/19/17 10:39 Zantac - PO 75 mg BID [facility] Administration Senna 2 tab 07/16/17 10:00 07/19/17 10:40 Senna - PO 2 tab DAILY [facility] Administration Timolol Maleate 1 drop 07/16/17 10:00 07/19/17 11:49 Timoptic 0.5% OU 1 drop DAILY [facility] Administration Impression 1. hyponatremia - chronic 2. s/p fall 3. sepsis 4. cellulitis 5. gerd 6. dementia 7. elevated monocytes Plan - sodium stable - repeat labs in am - ct abd reviewed, no renal lesions - urology follow up - ID input appreciated Dr Trujillo
[2017-07-19] MEDS: SODIUM CHLORIDE 1,000 ML IV SCH (15:50)
[2017-07-19] MEDS: MIRTAZAPINE 15 MG TABLET (FP) PO SCH (22:05)
[2017-07-19] MEDS: LATANOPROST 0.005% OPHTH SOLN 2.5ML BOTTLE OU SCH (22:06)
[2017-07-20] MEDS ORDERED: PT OWN MED DRAWER 7, Y5N ONE ×5 (05:45→13:23)
[2017-07-20] MEDS: DORZOLAMIDE 2% HCL OPHTHALMIC SOLUTION 10 ML BOTTLE OU SCH ×2 (06:55→13:31)
[2017-07-20] MEDS: BRIMONIDINE TARTRATE 0.2% OPHTHALMIC 5 ML BOTTLE OU SCH ×2 (06:56→13:29)
[2017-07-20] MEDS: HEPARIN NA (PORCINE) 5,000 UNITS/ML 1ML VIAL SQ SCH ×2 (06:56→13:29)
[2017-07-20] MEDS: NYSTATIN 100,000 UNIT/GM TOPICAL CREAM 15 GM TUBE TP SCH ×2 (06:56→13:29)
[2017-07-20 08:05] LABS: ANION GAP 12 (8-16); BLOOD UREA NITROGEN 11 mg/dL (7-18); CALCIUM 7.8 mg/dL (8.5-10.1); CHLORIDE 103 mmol/L (98-107); CO2 22 mmol/L (21-32); CREATININE 0.5 mg/dL (0.7-1.3); GLUCOSE,RANDOM 90 mg/dL (74-106); MAGNESIUM 2.3 mg/dL (1.8-2.4); PHOSPHOROUS 3.3 mg/dL (2.5-4.9); POTASSIUM 4.1 mmol/L (3.5-5.1); SODIUM 137 mmol/L (136-145)
[2017-07-20 08:12] LABS: SGOT/AST 28 U/L (15-37)
[2017-07-20 08:15] LABS: ALK PHOS 91 U/L (45-117); BILIRUBIN,DIRECT < 0.2 mg/dL (0.0-0.2); BILIRUBIN,TOTAL 0.3 mg/dL (0.2-1.0); SGPT/ALT 38 U/L (12-78); TOT PROT 5.2 g/dl (6.4-8.2)
[2017-07-20 08:22] LABS: BASO % 1.5 % (0-2.0); HEMOGLOBIN 11.1 GM/dL (11.7-16.9); LYMPH % 26.9 % (8-40); MCH 28.1 pg (25.7-33.7); MCHC 32.5 g/dl (32.0-35.9); MEAN CELL VOLUME 86.4 fl (80-96); MEAN PLT VOLUME 7.6 fl (7.5-11.1); MONO % 22.6 % (3.8-10.2); PLATELET COUNT 349 K/MM3 (134-434); RBC 3.94 M/mm3 (4.00-5.60); RDW 14.9 % (11.9-15.9); WHITE BLOOD COUNT 5.3 K/mm3 (4.0-10.0)
[2017-07-20] MEDS: RANITIDINE HCL 150 MG TABLET (FP) PO SCH (09:10)
[2017-07-20] MEDS: LIPASE/PROTEASE/AMYLASE 6,000 UNIT CAPSULE PO SCH ×3 (09:10→17:03)
[2017-07-20] MEDS: MULTIVITAMINS THER W-MINERALS COMBO TABLET (FP) PO SCH (09:12)
[2017-07-20] MEDS: SENNOSIDES 8.6MG TABLET (FP) PO SCH (09:12)
[2017-07-20] MEDS: CHOLECALCIFEROL (VITAMIN D3) 1,000 UNIT TABLET (FP) PO SCH (09:12)
[2017-07-20] MEDS: TIMOLOL 0.5% OPHTHALMIC SOL 5 ML BOTTLE OU SCH (09:13)
--- NOTE | 2017-07-20 10:42 | PN ---
Progress Note, Physician History of Present Illness: patient stable swelling improved - Current Medication List Current Medications: Active Medications Acetaminophen (Tylenol -) 650 mg PO Q4H PRN PRN Reason: FEVER OR PAIN Last Admin: 07/18/17 18:09 Dose: 650 mg Al Hydroxide/Mg Hydroxide (Mylanta Oral Suspension -) 30 ml PO Q6H PRN PRN Reason: INDIGESTION Brimonidine Tartrate (Alphagan 0.2% -) 1 drop OU TID [facility] Last Admin: 07/20/17 06:56 Dose: 1 drop Cholecalciferol (Vitamin D3 -) 1,000 unit PO DAILY [facility] Last Admin: 07/20/17 09:12 Dose: 1,000 unit Dorzolamide HCl (Trusopt 2%) 1 drop OU TID [facility] Last Admin: 07/20/17 06:55 Dose: 1 drop Heparin Sodium (Porcine) (Heparin -) 5,000 unit SQ TID [facility] Last Admin: 07/20/17 06:56 Dose: 5,000 unit Sodium Chloride (Normal Saline -) 1,000 mls @ 35 mls/hr IV ASDIR [facility] Last Admin: 07/19/17 15:50 Dose: 35 mls/hr Latanoprost (Xalatan 0.005% Eye Drops -) 1 drop OU HS [facility] Last Admin: 07/19/17 22:06 Dose: 1 drop Mirtazapine (Remeron -) 15 mg PO HS [facility] Last Admin: 07/19/17 22:05 Dose: 15 mg Multivitamins/Minerals (Theragran-M) 1 each PO DAILY [facility] Last Admin: 07/20/17 09:12 Dose: 1 each Nystatin (Mycostatin Cream -) 1 applic TP TID [facility] Last Admin: 07/20/17 06:56 Dose: 1 applic Pancrelipase (Creon Dr 6,000 Units Capsule) 4 cap PO TIDCM [facility] Last Admin: 07/20/17 09:10 Dose: 4 cap Ranitidine HCl (Zantac -) 75 mg PO BID [facility] Last Admin: 07/20/17 09:10 Dose: 75 mg Senna (Senna -) 2 tab PO DAILY [facility] Last Admin: 07/20/17 09:12 Dose: 2 tab Timolol Maleate (Timoptic 0.5%) 1 drop OU DAILY [facility] Last Admin: 07/20/17 09:13 Dose: 1 drop - Objective Vital Signs: Vital Signs Temperature 98.2 F 07/20/17 06:00 Pulse Rate 92 H 07/20/17 06:00 Respiratory Rate 18 07/20/17 06:00 Blood Pressure 136/83 07/20/17 06:00 O2 Sat by Pulse Oximetry (%) 98 07/19/17 21:00 Constitutional: Yes: Calm, Mild Distress Cardiovascular: Yes: Regular Rate and Rhythm Respiratory: Yes: Regular, CTA Bilaterally Gastrointestinal: Yes: Normal Bowel Sounds, Soft Musculoskeletal: Yes: Other Extremities: Yes: Other Neurological: Yes: Alert, Oriented Labs: CBC, BMP 07/20/17 06:30 07/20/17 06:30 INR, PTT INR 1.23 (0.82-1.09) H 07/16/17 07:00 Assessment/Plan Problem List - Problems (1) Sepsis Code(s): A41.9 - SEPSIS, UNSPECIFIED ORGANISM (2) Dementia Code(s): F03.90 - UNSPECIFIED DEMENTIA WITHOUT BEHAVIORAL DISTURBANCE (3) Hypertension Code(s): I10 - ESSENTIAL (PRIMARY) HYPERTENSION Qualifiers: Hypertension type: essential hypertension Qualified Code(s): I10 - Essential (primary) hypertension (4) Weakness Code(s): R53.1 - WEAKNESS (5) Glaucoma Code(s): H40.9 - UNSPECIFIED GLAUCOMA Assessment/Plan (1) Sepsis Code(s): A41.9 - SEPSIS, UNSPECIFIED ORGANISM (2) Dementia Code(s): F03.90 - UNSPECIFIED DEMENTIA WITHOUT BEHAVIORAL DISTURBANCE (3) Hypertension Code(s): I10 - ESSENTIAL (PRIMARY) HYPERTENSION Qualifiers: Hypertension type: essential hypertension Qualified Code(s): I10 - Essential (primary) hypertension (4) Weakness Code(s): R53.1 - WEAKNESS (5) Glaucoma Code(s): H40.9 - UNSPECIFIED GLAUCOMA (6) Hand pain plan continue to do physio of the hand elevation of the hand rest continue current mgmt
--- NOTE | 2017-07-20 11:39 | PN ---
Progress Note, Physician History of Present Illness: Clinically the same. No events. Appears comfortable - Current Medication List Current Medications: Active Medications Acetaminophen (Tylenol -) 650 mg PO Q4H PRN PRN Reason: FEVER OR PAIN Last Admin: 07/18/17 18:09 Dose: 650 mg Al Hydroxide/Mg Hydroxide (Mylanta Oral Suspension -) 30 ml PO Q6H PRN PRN Reason: INDIGESTION Brimonidine Tartrate (Alphagan 0.2% -) 1 drop OU TID [facility] Last Admin: 07/20/17 06:56 Dose: 1 drop Cholecalciferol (Vitamin D3 -) 1,000 unit PO DAILY [facility] Last Admin: 07/20/17 09:12 Dose: 1,000 unit Dorzolamide HCl (Trusopt 2%) 1 drop OU TID [facility] Last Admin: 07/20/17 06:55 Dose: 1 drop Heparin Sodium (Porcine) (Heparin -) 5,000 unit SQ TID [facility] Last Admin: 07/20/17 06:56 Dose: 5,000 unit Sodium Chloride (Normal Saline -) 1,000 mls @ 35 mls/hr IV ASDIR [facility] Last Admin: 07/19/17 15:50 Dose: 35 mls/hr Latanoprost (Xalatan 0.005% Eye Drops -) 1 drop OU HS [facility] Last Admin: 07/19/17 22:06 Dose: 1 drop Mirtazapine (Remeron -) 15 mg PO HS [facility] Last Admin: 07/19/17 22:05 Dose: 15 mg Multivitamins/Minerals (Theragran-M) 1 each PO DAILY [facility] Last Admin: 07/20/17 09:12 Dose: 1 each Nystatin (Mycostatin Cream -) 1 applic TP TID [facility] Last Admin: 07/20/17 06:56 Dose: 1 applic Pancrelipase (Creon Dr 6,000 Units Capsule) 4 cap PO TIDCM [facility] Last Admin: 07/20/17 09:10 Dose: 4 cap Ranitidine HCl (Zantac -) 75 mg PO BID [facility] Last Admin: 07/20/17 09:10 Dose: 75 mg Senna (Senna -) 2 tab PO DAILY [facility] Last Admin: 07/20/17 09:12 Dose: 2 tab Timolol Maleate (Timoptic 0.5%) 1 drop OU DAILY [facility] Last Admin: 07/20/17 09:13 Dose: 1 drop - Objective Vital Signs: Vital Signs Temperature 98.2 F 07/20/17 06:00 Pulse Rate 92 H 07/20/17 06:00 Respiratory Rate 18 07/20/17 06:00 Blood Pressure 136/83 07/20/17 06:00 O2 Sat by Pulse Oximetry (%) 98 07/19/17 21:00 Constitutional: Yes: No Distress, Calm Gastrointestinal: Yes: Soft. No: Tenderness, Vomiting Neurological: Yes: Other (sleepy, but arousable and able to maintain cinversation. [id number]) Labs: CBC, BMP 07/20/17 06:30 07/20/17 06:30 INR, PTT INR 1.23 (0.82-1.09) H 07/16/17 07:00 Problem List - Problems (1) Pancreatic cyst Code(s): K86.2 - CYST OF PANCREAS Assessment/Plan An accidentally found asymptomatic, pancreatic, cystic lesion in an 89 yo debilitated and frail NHR with alzheimers dementia. Asymptomatic. Supportive care
--- NOTE | 2017-07-20 11:57 | DS ---
Physical Examination Vital Signs: Vital Signs Temperature 36.8 C 07/20/17 06:00 Pulse Rate 92 H 07/20/17 06:00 Respiratory Rate 18 07/20/17 06:00 Blood Pressure 136/83 07/20/17 06:00 O2 Sat by Pulse Oximetry (%) 98 07/19/17 21:00 Constitutional: Yes: Well Nourished, No Distress, Calm Cardiovascular: Yes: Regular Rate and Rhythm. No: Gallop, Murmur, Rub Respiratory: Yes: Regular, CTA Bilaterally. No: Rales, Rhonchi, Wheezes Gastrointestinal: Yes: Normal Bowel Sounds, Soft. No: Distention, Tenderness Extremities: Yes: Erythema (R hand) Edema: Yes Edema: RUE: Trace Labs: CBC, BMP 07/20/17 06:30 07/20/17 06:30 Discharge Summary Reason For Visit: HYPONATREMIA,SEPSIS,SOFT TISSUE INFECTION Current Active Problems Hyponatremia (Acute) Microhematuria (Acute) Pancreatic cyst (Acute) Sepsis (Acute) Soft tissue infection (Acute) Hospital Course: - Problems (1) Sepsis Code(s): A41.9 - SEPSIS, UNSPECIFIED ORGANISM (2) Dementia Code(s): F03.90 - UNSPECIFIED DEMENTIA WITHOUT BEHAVIORAL DISTURBANCE (3) Hypertension Code(s): I10 - ESSENTIAL (PRIMARY) HYPERTENSION Qualifiers: Hypertension type: essential hypertension Qualified Code(s): I10 - Essential (primary) hypertension (4) Weakness Code(s): R53.1 - WEAKNESS (5) Glaucoma Code(s): H40.9 - UNSPECIFIED GLAUCOMA Mr Alba is a pleasant 89 year old male who comes in with SIRS. He was admitted to the hospital with concern for cellulitis of his LUE. He was seen by ID and started on empiric antibiotics. CT scan reviewed and negative. Patient's left hand improved, but then developed R hand edema and erythema with pain. X- ray showed arthritis. Patient trialled on low dose celebrex and improved. Will discharge on two days of celebrex. If arthritis recurs consider outpatient rheumatology evaluation. Patient is safe for discharge back to SNF. Case and plan d/w daughter. 33 minutes spent in preparation of this discharge Condition: Stable - Instructions Diet, Activity, Other Instructions: resume previous diet and activity. If swelling/pain recurs, would benefit from outpatient rheumatology consult Referrals: Kj Neff MD [Primary Care Provider] - Houston Neff MD [Staff Physician] - [facility] - Home Medications Comprehensive Discharge Medication List: Ambulatory Orders Aa/Hydrolyzed Collagen, Whey [Lps 15-30 Liquid] 30 ml PO DAILY 06/30/17 Acetaminophen [Tylenol] 650 mg PO QID 06/30/17 Bimatoprost [Lumigan] 1 drop OU DAILY 06/30/17 Brimonidine Tartrate [Alphagan 0.2% -] 1 drop TID 06/30/17 Cholecalciferol (Vitamin D3) [Vitamin D3] 1,000 unit PO DAILY 06/30/17 Dorzolamide HCl [Trusopt 2% -] 1 drop TID 06/30/17 Guaifenesin [Expectorant] 200 mg PO BID 06/30/17 Lipase/Protease/Amylase [Creon Dr 12,000 Units Capsule] 2 tab PO TID 06/30/17 Mag Hydrox/Al Hydrox/Simeth [Mylanta Oral Suspension -] 30 ml PO Q6H 06/30/17 Metronidazole 1% Cream [Metrocream 1% Cream -] 1 applic TP BID 06/30/17 Mirtazapine [Remeron -] 15 mg PO DAILY 06/30/17 Ranitidine HCl [Zantac 75] 75 mg PO BID 06/30/17 Sennosides [Senna] 2 tab PO DAILY 06/30/17 Simethicone [Gas Relief 80] 80 mg PO QID 06/30/17 Timolol 0.5% [Timoptic 0.5%] 1 drop OU DAILY 06/30/17 Vit A/Vit C/Vit E/Zinc/Copper [Preservision Areds Tablet] 1 each PO BID Celecoxib [CeleBREX -] 100 mg PO BID 2 Days capsule 07/20/17
[2017-07-20] MEDS ORDERED: CELECOXIB 100 MG CAPSULE PO SCH (12:00)
--- NOTE | 2017-07-20 14:01 | PN ---
Progress Note, Physician History of Present Illness: Pt seen and examined at bedside. He is awake and appears comfortable. - Current Medication List Current Medications: Active Medications Acetaminophen (Tylenol -) 650 mg PO Q4H PRN PRN Reason: FEVER OR PAIN Last Admin: 07/18/17 18:09 Dose: 650 mg Al Hydroxide/Mg Hydroxide (Mylanta Oral Suspension -) 30 ml PO Q6H PRN PRN Reason: INDIGESTION Brimonidine Tartrate (Alphagan 0.2% -) 1 drop OU TID [facility] Last Admin: 07/20/17 13:29 Dose: 1 drop Celecoxib (Celebrex -) 100 mg PO BID [facility] Stop: 07/22/17 11:59 Last Admin: 07/20/17 13:27 Dose: 100 mg Cholecalciferol (Vitamin D3 -) 1,000 unit PO DAILY [facility] Last Admin: 07/20/17 09:12 Dose: 1,000 unit Dorzolamide HCl (Trusopt 2%) 1 drop OU TID [facility] Last Admin: 07/20/17 13:31 Dose: 1 drop Heparin Sodium (Porcine) (Heparin -) 5,000 unit SQ TID [facility] Last Admin: 07/20/17 13:29 Dose: 5,000 unit Sodium Chloride (Normal Saline -) 1,000 mls @ 35 mls/hr IV ASDIR [facility] Last Admin: 07/19/17 15:50 Dose: 35 mls/hr Latanoprost (Xalatan 0.005% Eye Drops -) 1 drop OU HS [facility] Last Admin: 07/19/17 22:06 Dose: 1 drop Mirtazapine (Remeron -) 15 mg PO HS [facility] Last Admin: 07/19/17 22:05 Dose: 15 mg Multivitamins/Minerals (Theragran-M) 1 each PO DAILY [facility] Last Admin: 07/20/17 09:12 Dose: 1 each Nystatin (Mycostatin Cream -) 1 applic TP TID [facility] Last Admin: 07/20/17 13:29 Dose: 1 applic Pancrelipase (Creon Dr 6,000 Units Capsule) 4 cap PO TIDCM [facility] Last Admin: 07/20/17 13:28 Dose: 4 cap Ranitidine HCl (Zantac -) 75 mg PO BID [facility] Last Admin: 07/20/17 09:10 Dose: 75 mg Senna (Senna -) 2 tab PO DAILY [facility]EL[facility] Last Admin: 07/20/17 09:12 Dose: 2 tab Timolol Maleate (Timoptic 0.5%) 1 drop OU DAILY [facility] Last Admin: 07/20/17 09:13 Dose: 1 drop - Objective Vital Signs: Vital Signs Temperature 98.2 F 07/20/17 06:00 Pulse Rate 92 H 07/20/17 06:00 Respiratory Rate 18 07/20/17 06:00 Blood Pressure 136/83 07/20/17 06:00 O2 Sat by Pulse Oximetry (%) 98 07/19/17 21:00 Constitutional: Yes: Calm Eyes: Yes: Conjunctiva Clear HENT: Yes: Atraumatic Cardiovascular: Yes: S1, S2 Respiratory: Yes: CTA Bilaterally Gastrointestinal: Yes: Soft Musculoskeletal: Yes: Other (wrist discomfort) Edema: No Neurological: Yes: Oriented Labs: CBC, BMP 07/20/17 06:30 07/20/17 06:30 INR, PTT INR 1.23 (0.82-1.09) H 07/16/17 07:00 Problem List - Problems (1) Hyponatremia Code(s): E87.1 - HYPO-OSMOLALITY AND HYPONATREMIA (2) Sepsis Code(s): A41.9 - SEPSIS, UNSPECIFIED ORGANISM (3) Soft tissue infection Code(s): L08.9 - LOCAL INFECTION OF THE SKIN AND SUBCUTANEOUS TISSUE, UNSP (4) Dementia Code(s): F03.90 - UNSPECIFIED DEMENTIA WITHOUT BEHAVIORAL DISTURBANCE (5) Hypertension Code(s): I10 - ESSENTIAL (PRIMARY) HYPERTENSION Qualifiers: Hypertension type: essential hypertension Qualified Code(s): I10 - Essential (primary) hypertension Assessment/Plan Current Medications Generic Name Dose Route Start Last Admin Trade Name Freq PRN Reason Stop Dose Admin Acetaminophen 650 mg 07/16/17 00:44 07/18/17 18:09 Tylenol - PO 650 mg Q4H PRN Administration FEVER OR PAIN Al Hydroxide/Mg Hydroxide 30 ml 07/16/17 02:00 Mylanta Oral Suspension - PO Q6H PRN INDIGESTION Brimonidine Tartrate 1 drop 07/16/17 06:00 07/20/17 13:29 Alphagan 0.2% - OU 1 drop TID MELISSA Administration Celecoxib 100 mg 07/20/17 12:00 07/20/17 13:27 Celebrex - PO 07/22/17 11:59 100 mg BID MELISSA Administration Cholecalciferol 1,000 unit 07/16/17 10:00 07/20/17 09:12 Vitamin D3 - PO 1,000 unit DAILY MELISSA Administration Dorzolamide HCl 1 drop 07/16/17 06:00 07/20/17 13:31 Trusopt 2% OU 1 drop TID MELISSA Administration Heparin Sodium (Porcine) 5,000 unit 07/16/17 06:00 07/20/17 13:29 Heparin - SQ 5,000 unit TID MELISSA Administration Sodium Chloride 1,000 mls @ 35 mls/hr 07/18/17 14:00 07/19/17 15:50 Normal Saline - IV 35 mls/hr ASDIR MELISSA Administration Latanoprost 1 drop 07/16/17 22:00 07/19/17 22:06 Xalatan 0.005% Eye Drops - OU 1 drop HS MELISSA Administration Mirtazapine 15 mg 07/16/17 22:00 07/19/17 22:05 Remeron - PO 15 mg HS MELISSA Administration Multivitamins/Minerals 1 each 07/16/17 10:00 07/20/17 09:12 Theragran-M PO 1 each DAILY MELISSA Administration Nystatin 1 applic 07/16/17 22:00 07/20/17 13:29 Mycostatin Cream - TP 1 applic TID MELISSA Administration Pancrelipase 4 cap 07/16/17 08:00 07/20/17 13:[address] 6,000 Units Capsule PO 4 cap TIDCM MELISSA Administration Ranitidine HCl 75 mg 07/16/17 10:00 07/20/17 09:10 Zantac - PO 75 mg BID MELISSA Administration Senna 2 tab 07/16/17 10:00 07/20/17 09:12 Senna - PO 2 tab DAILY MELISSA Administration Timolol Maleate 1 drop 07/16/17 10:00 07/20/17 09:13 Timoptic 0.5% OU 1 drop DAILY MELISSA Administration Laboratory Tests 07/20/17 06:30 Rheumatoid Arth [employer] Pending Impression 1. hyponatremia - chronic 2. s/p fall 3. sepsis 4. cellulitis 5. gerd 6. dementia 7. elevated monocytes Plan - can stop fluids - sodium is stable - agree with short course of anti-inflamatories with close monitoring of renal function - ID input appreciated - will follow PRN - rheum eval as outpt Dr Trujillo
[2017-07-20 19:04] VITALS: BP 127/65; PULSE 84; TEMP 98.1
== END 2017-07-20 19:29 | DRG 554 ==
LOC: JER 19:21 → JERBED 23:23 → J8W 07-16 02:21
PROVIDERS: ADMIT Internal Medicine; ATTEND Internal Medicine
DX: M19.041 Primary osteoarthritis, right hand (principal); K86.2 Cyst of pancreas; E87.1 Hypo-osmolality and hyponatremia; E87.2 Acidosis; R65.10 Systemic inflammatory response syndrome (SIRS) of non-infectious origin without acute organ dysfunction; E86.0 Dehydration; R31.29 Other microscopic hematuria; G30.9 Alzheimer's disease, unspecified; F02.80 Dementia in other diseases classified elsewhere, unspecified severity, without behavioral disturbance, psychotic disturbance, mood disturbance, and anxiety; I10 Essential (primary) hypertension; H40.9 Unspecified glaucoma; B95.2 Enterococcus as the cause of diseases classified elsewhere; D47.3 Essential (hemorrhagic) thrombocythemia; E78.5 Hyperlipidemia, unspecified; R26.9 Unspecified abnormalities of gait and mobility
CPT/HCPCS: 36415; 71045-TC; 73110-TC-LT; 73110-TC-RT; 73130-TC-LT; 73130-TC-RT; 73200-TC-RT; 74178-TC; 80048; 80053; 80076; 81003; 81015; 82550; 82570; 82803; 83605; 83735; 83930; 83935; 84100; 84300; 84484; 84550; 85025; 85610; 85651; 86140; 86431; 87040; 87086; 93005; 93010; 97116-GP; 97161-GP; 99283-25; J1644; Q9967